=== PATIENT | female | born 1950 | race Caucasian/White ===

== ENCOUNTER 2016-03-29 07:57 | Outpatient (CLI) | payer MEDICARE ==
[~2016-03-29 07:57] MED LIST: DEXAMETHASONE SOD PHOSPHATE 10 MG in NORMAL SALINE 50 ML IV PRN; DIPHENHYDRAMINE HCL 50 MG/ML VIAL IV PRN; IRON SUCROSE COMPLEX 100 MG in NORMAL SALINE 100 ML IV PRN; NORMAL SALINE 250 ML IV PRN
[2016-03-29 09:48] VITALS: BP 102/40
[2016-04-05] MEDS ORDERED: NORMAL SALINE 250 ML IV PRN (08:00)
== END 2016-03-29 09:54 | disposition home or self-care (01) ==
LOC: II 07:57 → 5TH 07:59 → II 09:54
PROVIDERS: ATTEND Internal Medicine
PROC: 3E033GC Introduction of Other Therapeutic Substance into Peripheral Vein, Percutaneous Approach (ICD-10-PCS; principal; 2016-03-29)
PROC: 3E0333Z Introduction of Anti-inflammatory into Peripheral Vein, Percutaneous Approach (ICD-10-PCS; 2016-03-29)
DX: N18.3 Chronic kidney disease, stage 3 (moderate) (principal); D63.1 Anemia in chronic kidney disease
CPT/HCPCS: 96374; 96375; J1756; J1200; 96367; J1100

== ENCOUNTER 2016-04-05 07:54 | Outpatient (CLI) | payer MEDICARE ==
[2016-04-05] MEDS ORDERED: NORMAL SALINE 250 ML IV PRN (08:00)
[2016-04-05] MEDS ORDERED: DIPHENHYDRAMINE HCL 50 MG/ML VIAL IV PRN (08:00)
[2016-04-05] MEDS ORDERED: DEXAMETHASONE SOD PHOSPHATE 10 MG in NORMAL SALINE 50 ML IV PRN (08:00)
[2016-04-05] MEDS ORDERED: IRON SUCROSE COMPLEX 100 MG in NORMAL SALINE 100 ML IV PRN (08:00)
[2016-04-05 08:39] VITALS: BP 115/55
== END 2016-04-05 09:17 | disposition home or self-care (01) ==
LOC: II 07:54 → 5TH 07:55 → II 09:17
PROVIDERS: ATTEND Specialist
PROC: 3E033GC Introduction of Other Therapeutic Substance into Peripheral Vein, Percutaneous Approach (ICD-10-PCS; principal; 2016-04-05)
DX: N18.3 Chronic kidney disease, stage 3 (moderate) (principal); D63.1 Anemia in chronic kidney disease
CPT/HCPCS: 96365; 96375; J1756; J1200; 96367; J1100

== ENCOUNTER 2016-04-12 07:52 | Outpatient (CLI) | payer MEDICARE ==
[~2016-04-12 07:52] MED LIST changes: -DEXAMETHASONE SOD PHOSPHATE 10 MG in NORMAL SALINE 50 ML IV PRN
[2016-04-12 08:52] VITALS: BP 115/54
[2016-04-17] MEDS ORDERED: IRON SUCROSE COMPLEX 100 MG in NORMAL SALINE 100 ML IV PRN (08:39)
== END 2016-04-12 09:15 | disposition home or self-care (01) ==
LOC: II 07:52 → 5TH 07:55 → II 09:15
PROVIDERS: ATTEND Specialist
PROC: 3E033GC Introduction of Other Therapeutic Substance into Peripheral Vein, Percutaneous Approach (ICD-10-PCS; principal; 2016-04-12)
DX: N18.3 Chronic kidney disease, stage 3 (moderate) (principal); D63.1 Anemia in chronic kidney disease
CPT/HCPCS: 96365; 96375; J1756; J1200; 96367

== ENCOUNTER 2016-08-22 11:17 | Inpatient (IN) | payer MEDICARE ==
[2016-08-22] MEDS ORDERED: NORMAL SALINE 250 ML IV PRN ×2 (11:42)
--- NOTE | 2016-08-22 11:49 | ER Document Report ---
ED Medical Screen (RME) - General Chief Complaint: Abnormal Lab Results Stated Complaint: ABNORMAL LABS Time Seen by Provider: 08/22/16 11:40 Mode of Arrival: Wheelchair Information source: Patient Notes: This is a 65-year-old female with multiple medical problems who was scheduled to have a port placed today but on her blood work was noted to be hyperkalemic and therefore was sent to the emergency department for further evaluation. She sees Dr. Whitmore for chronic anemia. She states that she has been symptomatic with her anemia for the past few days. She had an episode of chest pain yesterday evening which she had to take nitro for. She does not currently have chest pain but she does feel weak. She states that she usually requires transfusion every 6 week and her last transfusion was in May. I have greeted and performed a rapid initial assessment of this patient. A comprehensive ED assessment and evaluation of the patient, analysis of test results and completion of the medical decision making process will be conducted by additional ED providers. TRAVEL OUTSIDE OF THE [place] IN LAST 30 DAYS: No - Related Data Allergies/Adverse Reactions: oxycodone Allergy (Severe, Verified 02/17/16 22:17) ended up in hospital with kidney failure codeine Allergy (Verified 02/17/16 22:17) midazolam HCl [From Versed] Allergy (Verified 02/17/16 22:17) ON VENT X 19 DAYS hydrocodone [Hydrocodone] Adverse Reaction (Mild, Verified 02/17/16 22:17) GI upset Past Medical History - Past Medical History Cardiac Medical History: Reports: Hx Congestive Heart Failure, Hx Heart Attack - DECEMBER 1995, Hx Hypercholesterolemia, Hx Hypertension, Hx Heart Murmur Denies: Hx Coronary Artery Disease Pulmonary Medical History: Reports: Hx Asthma, Hx Bronchitis, Hx COPD - OXYGEN DEPENDENT, Hx Pneumonia Neurological Medical History: Denies: Hx Cerebrovascular Accident, Hx Seizures Endocrine Medical History: Reports: Hx Diabetes Mellitus Type 2, Hx Hypothyroidism Renal/ Medical History: Reports: Hx Renal Insufficiency. Denies: Hx Peritoneal Dialysis GI Medical History: Reports: Hx Cirrhosis, Hx Gastroesophageal Reflux Disease. Denies: Hx Hepatitis, Hx Hiatal Hernia, Hx Ulcer Musculoskeltal Medical History: Reports Hx Arthritis - GENERALIZED Psychiatric Medical History: Reports: Hx Depression Infectious Medical History: Denies: Hx Hepatitis Past Surgical History: Reports: Hx Cardiac Catheterization, Hx Section - x3, Hx Cholecystectomy, Hx Coronary Stent - x12. Denies: Hx Mastectomy, Hx Open Heart Surgery, Hx Pacemaker - Immunizations Hx Diphtheria, Pertussis, Tetanus Vaccination: Yes Physical Exam - Vital signs Vitals: Temp Pulse Resp BP Pulse Ox 98.2 F 78 28 H 146/55 H 92 08/22/16 11:31 08/22/16 11:31 08/22/16 11:31 08/22/16 11:31 08/22/16 11:31 - General In distress: None Notes: Patient is alert and conversant but very pale and feels weak. - Respiratory Respiratory status: No respiratory distress Breath sounds: Other - bibasilar crackles - Cardiovascular Rhythm: Regular Heart sounds: S1 appreciated, S2 appreciated Murmur: Yes - 4/6 systolic across precordium Course - Vital Signs Vital signs: Temp Pulse Resp BP Pulse Ox 98.2 F 78 28 H 146/55 H 92 08/22/16 11:31 08/22/16 11:31 08/22/16 11:31 08/22/16 11:31 08/22/16 11:31
[2016-08-22 12:58] LABS: HEMATOCRIT 25.1 % (36.0-47.0); HGB HCT DIFFERENCE -1.7; MEAN CORPUSCULAR HGB CONC 30.9 g/dL (32.0-36.0); MEAN CORPUSCULAR VOLUME 91 fl (80-97); RED BLOOD COUNT 2.77 10^6/uL (3.72-5.28); RED CELL DISTRIBUTION WIDTH 20.1 % (11.5-14.0)
[2016-08-22 13:12] LABS: CREATINE KINASE MB 0.26 ng/mL (<4.55)
[2016-08-22 13:13] LABS: HEMOGLOBIN 7.8 g/dL (12.0-15.5)
[2016-08-22 13:16] LABS: TROPONIN I < 0.012 ng/mL
[2016-08-22 13:22] LABS: ANION GAP 10 (5-19); BLOOD UREA NITROGEN 69 mg/dL (7-20); CALCIUM 9.1 mg/dL (8.4-10.2); CARBON DIOXIDE 29 mmol/L (22-30); CHLORIDE 106 mmol/L (98-107); CREATININE RESULT 1.26 mg/dL (0.52-1.25); GLUCOSE 98 mg/dL (75-110); SODIUM 145.4 mmol/L (137-145)
[2016-08-22 13:24] LABS: POTASSIUM 6.2 mmol/L (3.6-5.0)
[2016-08-22] MEDS ORDERED: DEXTROSE 50%-WATER 25 GM/50 ML DISP.SYRIN IV ONE (14:50)
[2016-08-22] MEDS ORDERED: INSULIN REG, HUMAN 100 UNIT/ML 3 ML VIAL (PYX) IV ONE (14:50)
[2016-08-22] MEDS ORDERED: SODIUM POLYSTYRENE SULFONATE 15 GM/60 ML PO ONE (14:57)
--- NOTE | 2016-08-22 15:01 | ER Document Report ---
ED General - General Chief Complaint: Abnormal Lab Results Stated Complaint: ABNORMAL LABS Time Seen by Provider: 08/22/16 11:40 Mode of Arrival: Wheelchair TRAVEL OUTSIDE OF THE [place] IN LAST 30 DAYS: No - HPI Patient complains to provider of: Abnormal laboratory findings Notes: Patient is coming in for evaluation of abnormal laboratory findings. Patient has a history of chronic anemia therefore received blood transfusions monthly. Patient was at a local vascular surgeons office and outpatient laboratory studies showed a low hemoglobin and elevated potassium therefore patient was referred to the ER for further evaluation. Patient otherwise upon evaluation states she feels bad however was unable to clarify if her bad feeling as any acute change. Patient does look pale however looks to be in no obvious distress. - Related Data Allergies/Adverse Reactions: oxycodone Allergy (Severe, Verified 02/17/16 22:17) ended up in hospital with kidney failure codeine Allergy (Verified 02/17/16 22:17) midazolam HCl [From Versed] Allergy (Verified 02/17/16 22:17) ON VENT X 19 DAYS hydrocodone [Hydrocodone] Adverse Reaction (Mild, Verified 02/17/16 22:17) GI upset Home Medications: Current Home Medications Acetaminophen [Tylenol 325 mg Tablet] 650 mg PO QID 08/22/16 [History] Alprazolam [Xanax 0.25 mg Tablet] 0.25 mg PO BID 08/22/16 [History] Amlodipine Besylate [Norvasc 10 mg Tablet] 10 mg PO DAILY 08/22/16 [History] Benazepril HCl [Lotensin 10 mg Tablet] 10 mg PO DAILY 08/22/16 [History] Bimatoprost [Lumigan 0.01% Oph Soln 2.5 ml/Bottle] 1 drop OU DAILY 08/22/16 [ History] Carvedilol [Coreg 6.25 mg Tablet] 6.25 mg PO BID 08/22/16 [History] Citalopram Hydrobromide [Celexa] 20 mg PO DAILY 08/22/16 [History] Furosemide [Lasix] 40 mg PO DAILY 08/22/16 [History] Ipratropium/Albuterol Sulfate [Combivent Respimat 4 gm Mdi] 1 puff IH QID [History] Isosorbide Dinitrate [Isordil Titradose 20 mg Tablet] 20 mg PO BID 08/22/16 [ History] Levothyroxine Sodium [Synthroid 0.1 mg Tablet] 0.1 mg PO DAILY 08/22/16 [History ] Mirtazapine [Remeron 15 mg Tablet] 15 mg PO BID 08/22/16 [History] Nitroglycerin [Nitrostat] 0.4 mg PO Q5M 08/22/16 [History] Zolpidem Tartrate [Ambien] 10 mg PO QHS 08/22/16 [History] Past Medical History - General Information source: Patient - Social History Smoking Status: Former Smoker Frequency of alcohol use: None Drug Abuse: None Family History: CAD, COPD Patient has suicidal ideation: No Patient has homicidal ideation: No - Past Medical History Cardiac Medical History: Reports: Hx Congestive Heart Failure, Hx Heart Attack - DECEMBER 1995, Hx Hypercholesterolemia, Hx Hypertension, Hx Heart Murmur Denies: Hx Coronary Artery Disease Pulmonary Medical History: Reports: Hx Asthma, Hx Bronchitis, Hx COPD - OXYGEN DEPENDENT, Hx Pneumonia Neurological Medical History: Denies: Hx Cerebrovascular Accident, Hx Seizures Endocrine Medical History: Reports: Hx Diabetes Mellitus Type 2, Hx Hypothyroidism Renal/ Medical History: Reports: Hx Renal Insufficiency. Denies: Hx Peritoneal Dialysis GI Medical History: Reports: Hx Cirrhosis, Hx Gastroesophageal Reflux Disease. Denies: Hx Hepatitis, Hx Hiatal Hernia, Hx Ulcer Musculoskeltal Medical History: Reports Hx Arthritis - GENERALIZED Psychiatric Medical History: Reports: Hx Depression Infectious Medical History: Denies: Hx Hepatitis Past Surgical History: Reports: Hx Cardiac Catheterization, Hx Section - x3, Hx Cholecystectomy, Hx Coronary Stent - x12. Denies: Hx Mastectomy, Hx Open Heart Surgery, Hx Pacemaker - Immunizations Hx Diphtheria, Pertussis, Tetanus Vaccination: Yes Hx Pneumococcal Vaccination: 12/24/14 Review of Systems - Review of Systems Constitutional: Other - Abnormal laboratory findings EENT: No symptoms reported Cardiovascular: No symptoms reported Respiratory: No symptoms reported Gastrointestinal: No symptoms reported Genitourinary: No symptoms reported Female Genitourinary: No symptoms reported Musculoskeletal: No symptoms reported Skin: No symptoms reported Hematologic/Lymphatic: No symptoms reported Neurological/Psychological: No symptoms reported Physical Exam - Vital signs Vitals: Temp Pulse Resp BP Pulse Ox 98.2 F 78 28 H 146/55 H 92 08/22/16 11:30 08/22/16 11:30 08/22/16 11:30 08/22/16 11:30 08/22/16 11:30 Interpretation: Normal - General General appearance: Appears well, Alert - HEENT Head: Normocephalic, Atraumatic Eyes: Normal Pupils: PERRL - Respiratory Respiratory status: No respiratory distress Chest status: Nontender Breath sounds: Normal Chest palpation: Normal - Cardiovascular Rhythm: Regular Heart sounds: Normal auscultation Murmur: No - Abdominal Inspection: Normal Distension: No distension Bowel sounds: Normal Tenderness: Nontender Organomegaly: No organomegaly - Back Back: Normal, Nontender - Extremities General upper extremity: Normal inspection, Nontender, Normal color, Normal ROM , Normal temperature General lower extremity: Normal inspection, Nontender, Normal color, Normal ROM , Normal temperature, Normal weight bearing. No: Su's sign - Neurological Neuro grossly intact: Yes Cognition: Normal Orientation: AAOx4 [place] Coma Scale Eye Opening: Spontaneous [place] Coma Scale Verbal: Oriented [place] Coma Scale Motor: Obeys Commands [place] Coma Scale Total: 15 Speech: Normal Motor strength normal: LUE, RUE, LLE, RLE Sensory: Normal - Psychological Associated symptoms: Normal affect, Normal mood - Skin Skin Temperature: Warm Skin Moisture: Dry Skin Color: Pale Course - Re-evaluation Re-evalutation: 08/22/16 18:59 Patient's lab work shows anemia hyperkalemia. Patient is refusing to have any IV insulin are dextrose that she states she has had before and almost due to hypoglycemia. Discussed with hospitalist agrees with Kayexalate. I did order Kayexalate for the hospitalist. Patient will be admitted for blood transfusions and continued monitoring of her hyperkalemic state - Vital Signs Vital signs: Temp Pulse Resp BP Pulse Ox 98.2 F 82 22 H 143/72 H 98 08/22/16 11:31 08/22/16 16:40 08/22/16 16:40 08/22/16 16:39 08/22/16 16:40 - Laboratory Result Diagrams: 08/22/16 12:17 08/22/16 12:17 Laboratory results interpreted by me: 08/22/16 08/22/16 08/22/16 12:17 12:17 12:17 WBC RBC Hgb Hct MCHC RDW Plt Count Sodium 145.4 H Potassium 6.2 H* BUN 69 H Creatinine 1.26 H Est GFR ( Amer) 51 L Est GFR (Non-Af Amer) 42 L Creatine Kinase < 20 L Crossmatch See Detail 08/22/16 12:17 WBC 3.0 L RBC 2.77 L Hgb 7.8 L Hct 25.1 L MCHC 30.9 L RDW 20.1 H Plt Count 77 L Sodium Potassium BUN Creatinine Est GFR ( Amer) Est GFR (Non-Af Amer) Creatine Kinase Crossmatch Critical Care Note - Critical Care Note Total time excluding time spent on procedures (mins): 35 Comments: Multiple evaluations for hyperkalemia and anemia Discharge - Discharge Clinical Impression: Acute renal insufficiency, Hyperkalemia, Anemia requiring blood transfusion Condition: Good Disposition: ADMITTED INPATIENT Admitting Provider: Thea Mayen Unit Admitted: Telemetry
[2016-08-22] MEDS ORDERED: DIPHENHYDRAMINE HCL 50 MG/ML VIAL IV ONE ×2 (15:46→23:45)
[2016-08-22] MEDS ORDERED: ACETAMINOPHEN 325 MG TABLET PO PRN (17:02)
[2016-08-22] MEDS ORDERED: ONDANSETRON HCL INJ/PF 4 MG/2 ML SDV IV PRN (17:08)
--- NOTE | 2016-08-22 17:35 | PDOC H&P ---
History of Present Illness Admission Date/PCP: 08/22/16 15:33 JORDYN STEEN DO Patient complains of: Easy fatigability History of Present Illness: ROSALVA DOLL is a 65 year old female, history of anemia iron deficiency due to chronic blood loss, hypertension on GLORIA inhibitor presents to the hospital because of elevated potassium. Patient has been having pallor for several days , easy fatigability and dyspnea on exertion. At times the patient will have chest pain all the symptoms however would be relieved by rest other than the pallor. Patient know that she is anemic and therefore went to see her facility specialist, she was sent to see vascular surgery for Port-A-Cath placement. While in the clinic today and chemistry was obtained noted elevated potassium therefore the patient was sent to the emergency room for evaluation where her potassium was 6.2. Hemoglobin found to be 7.8 and 2 units of packed RBCs was ordered and initiated. Patient has been referred for admission. Past Medical History Cardiac Medical History: Reports: Congestive Heart Failure, Myocardial Infarction - DECEMBER 1995, Hyperlipidema, Hypertension, Heart Murmur Denies: Coronary Artery Disease Pulmonary Medical History: Reports: Asthma, Bronchitis, Chronic Obstructive Pulmonary Disease (COPD) - OXYGEN DEPENDENT, Pneumonia Neurological Medical History: Denies: Seizures Endocrine Medical History: Reports: Diabetes Mellitus Type 2, Hypothyroidism GI Medical History: Reports: Cirrhosis, Gastroesophageal Reflux Disease Denies: Hepatitis, Hiatal Hernia Musculoskeltal Medical History: Reports: Arthritis - GENERALIZED Psychiatric Medical History: Reports: Depression Hematology: Reports: Anemia Denies: Sickle Cell Disease Past Surgical History Past Surgical History: Reports: Cardiac Catheterization, Section - x3, Cholecystectomy, Coronary Stent - x12 Denies: Amputation, Mastectomy, Pacemaker Social History Information Source: Patient Smoking Status: Former Smoker Frequency of Alcohol Use: None Hx Recreational Drug Use: No Drugs: None Hx Prescription Drug Abuse: No Family History Family History: CAD, COPD Parental Family History Reviewed: Yes Children Family History Reviewed: Yes Sibling(s) Family History Reviewed.: Yes Medication/Allergy Home Medications: Acetaminophen [Tylenol 325 mg Tablet] 650 mg PO QID 08/22/16 Alprazolam [Xanax 0.25 mg Tablet] 0.25 mg PO BID 08/22/16 Amlodipine Besylate [Norvasc 10 mg Tablet] 10 mg PO DAILY 08/22/16 Benazepril HCl [Lotensin 10 mg Tablet] 10 mg PO DAILY 08/22/16 Bimatoprost [Lumigan 0.01% Oph Soln 2.5 ml/Bottle] 1 drop OU DAILY 08/22/16 Carvedilol [Coreg 6.25 mg Tablet] 6.25 mg PO BID 08/22/16 Citalopram Hydrobromide [Celexa] 20 mg PO DAILY 08/22/16 Furosemide [Lasix] 40 mg PO DAILY 08/22/16 Ipratropium/Albuterol Sulfate [Combivent Respimat 4 gm Mdi] 1 puff IH QID Isosorbide Dinitrate [Isordil Titradose 20 mg Tablet] 20 mg PO BID 08/22/16 Levothyroxine Sodium [Synthroid 0.1 mg Tablet] 0.1 mg PO DAILY 08/22/16 Mirtazapine [Remeron 15 mg Tablet] 15 mg PO BID 08/22/16 Nitroglycerin [Nitrostat] 0.4 mg PO Q5M 08/22/16 Zolpidem Tartrate [Ambien] 10 mg PO QHS 08/22/16 Allergies/Adverse Reactions: oxycodone Allergy (Severe, Verified 02/17/16 22:17) ended up in hospital with kidney failure codeine Allergy (Verified 02/17/16 22:17) midazolam HCl [From Versed] Allergy (Verified 02/17/16 22:17) ON VENT X 19 DAYS hydrocodone [Hydrocodone] Adverse Reaction (Mild, Verified 02/17/16 22:17) GI upset Review of Systems Constitutional: PRESENT: weakness - Generalized. ABSENT: chills, fever(s), headache(s), night sweats, weight gain, weight loss Eyes: ABSENT: visual disturbances Ears: ABSENT: hearing changes Nose, Mouth, and Throat: ABSENT: mouth pain, sore throat Cardiovascular: PRESENT: chest pain - On exertion, dyspnea on exertion. ABSENT : edema, orthropnea, palpitations Respiratory: ABSENT: cough, hemoptysis, sputum Gastrointestinal: PRESENT: melena - Patient has black stools but takes supplemental iron. ABSENT: abdominal pain, constipation, diarrhea, hematemesis , hematochezia, nausea, vomiting Genitourinary: ABSENT: dysuria, hematuria Musculoskeletal: ABSENT: deformity, joint swelling Integumentary: ABSENT: pruritus, rash, wounds Neurological: ABSENT: abnormal gait, abnormal speech, confusion, dizziness, focal weakness, syncope Psychiatric: ABSENT: anxiety, depression, homidical ideation, suicidal ideation Endocrine: ABSENT: cold intolerance, heat intolerance, polydipsia, polyuria Hematologic/Lymphatic: ABSENT: easy bleeding, easy bruising Physical Exam Vital Signs: Temp Pulse Resp BP Pulse Ox 98.2 F 82 22 H 143/72 H 98 08/22/16 11:31 08/22/16 16:40 08/22/16 16:40 08/22/16 16:39 08/22/16 16:40 Intake & Output 08/21/16 08/22/16 08/23/16 06:59 06:59 06:59 Intake Total 0 Balance 0 General appearance: PRESENT: no acute distress, cooperative, obese Head exam: PRESENT: atraumatic, normocephalic Eye exam: PRESENT: conjunctiva pale, EOMI, PERRLA. ABSENT: scleral icterus Ear exam: PRESENT: normal external ear exam Mouth exam: PRESENT: moist, neck supple, tongue midline Neck exam: ABSENT: carotid bruit, JVD, lymphadenopathy, thyromegaly Respiratory exam: PRESENT: clear to auscultation scott. ABSENT: rales, rhonchi, wheezes Cardiovascular exam: PRESENT: RRR. ABSENT: diastolic murmur, rubs, systolic murmur Pulses: PRESENT: normal dorsalis pedis pul Vascular exam: PRESENT: normal capillary refill GI/Abdominal exam: PRESENT: normal bowel sounds, soft. ABSENT: distended, guarding, mass, organolmegaly, rebound, tenderness Rectal exam: PRESENT: deferred Extremities exam: PRESENT: full ROM. ABSENT: calf tenderness, clubbing, pedal edema Neurological exam: PRESENT: alert, awake, oriented to person, oriented to place , oriented to time, oriented to situation Psychiatric exam: PRESENT: appropriate affect, normal mood. ABSENT: homicidal ideation, suicidal ideation Skin exam: PRESENT: dry, intact, warm. ABSENT: cyanosis, rash Assessment & Plan - Diagnosis (1) Iron deficiency anemia Qualifiers: Iron deficiency anemia type: chronic blood loss Qualified Code(s): D50.0 - Iron deficiency anemia secondary to blood loss (chronic) Is this a current diagnosis for this admission?: Yes (2) Hyperkalemia Is this a current diagnosis for this admission?: Yes (3) Pancytopenia Is this a current diagnosis for this admission?: Yes (4) Chronic hypoxemic respiratory failure Is this a current diagnosis for this admission?: Yes (5) Hypersplenism Is this a current diagnosis for this admission?: Yes (6) COPD (chronic obstructive pulmonary disease) Qualifiers: COPD type: unspecified COPD Qualified Code(s): J44.9 - Chronic obstructive pulmonary disease, unspecified Is this a current diagnosis for this admission?: Yes (7) Cirrhosis Qualifiers: Hepatic cirrhosis type: unspecified hepatic cirrhosis Ascites presence : without ascites Qualified Code(s): K74.60 - Unspecified cirrhosis of liver Is this a current diagnosis for this admission?: Yes (8) CAD (coronary artery disease) Qualifiers: Coronary Disease-Associated Artery/Lesion type: [place] artery [place] vs. transplanted heart: [place] heart Associated angina: with stable angina Qualified Code(s): I25.118 - Atherosclerotic heart disease of [place] coronary artery with other forms of angina pectoris Is this a current diagnosis for this admission?: Yes (9) CHF (congestive heart failure) Qualifiers: Congestive heart failure type: systolic Congestive heart failure chronicity: chronic Qualified Code(s): I50.22 - Chronic systolic ( congestive) heart failure Is this a current diagnosis for this admission?: Yes (10) Essential hypertension Is this a current diagnosis for this admission?: Yes (11) Hyperlipidemia Qualifiers: Hyperlipidemia type: unspecified Qualified Code(s): E78.5 - Hyperlipidemia, unspecified (12) GERD (gastroesophageal reflux disease) Qualifiers: Esophagitis presence: without esophagitis Qualified Code(s): K21.9 - Gastro-esophageal reflux disease without esophagitis Is this a current diagnosis for this admission?: Yes (13) Hypothyroidism (acquired) Is this a current diagnosis for this admission?: Yes (14) Depression Qualifiers: Depression Type: unspecified Qualified Code(s): F32.9 - Major depressive disorder, single episode, unspecified Is this a current diagnosis for this admission?: Yes (15) Type 2 diabetes mellitus Qualifiers: Diabetes mellitus complication status: with unspecified complications Diabetes mellitus nursing home insulin use: without nursing home use Qualified Code(s): E11.8 - Type 2 diabetes mellitus with unspecified complications Is this a current diagnosis for this admission?: Yes - Time Time Spent: 30 to 50 Minutes - Inpatient Certification Based on my medical assessment, after consideration of the patient's comorbidities, presenting symptoms, or acuity I expect that the services needed warrant INPATIENT care.: Yes I certify that my determination is in accordance with my understanding of Medicare's requirements for reasonable and necessary INPATIENT services [42 CFR 412.3e].: Yes Medical Necessity: Significant Comorbidiites Make Outpatient Treatment Too Risky , Need Close Monitoring Due to Risk of Patient Decompensation, Need For IV Fluids, Need For Continuous Telemetry Monitoring, Risk of Complication if Not Cared For in Hospital Post Hospital Care: D/C [employer] Documentation - Plan Summary Plan Summary: Patient will be admitted to [facility]. We will continue transfusion and recheck hematocrit in the morning. We will consult Dr. Whitmore for further evaluation. In the meantime the patient's hyperkalemia likely secondary to GLORIA inhibitor. Patient is getting hydration, Kayexalate given in the emergency room we will recheck potassium level in the morning. THERESA hartmann and Adilene for DVT prophylaxis , continue home oxygen. Further testing depends on the initial evaluations outlined above.
[2016-08-22] MEDS: ALPRAZOLAM 0.25 MG TABLET PO SCH (18:57)
[2016-08-22] MEDS: MIRTAZAPINE 15 MG TABLET PO SCH (18:57)
[2016-08-22] MEDS: CARVEDILOL 6.25 MG TABLET PO SCH (18:58)
[2016-08-22] MEDS: DOCUSATE SODIUM 100 MG CAPSULE PO SCH (21:25)
[2016-08-22] MEDS ORDERED: ZOLPIDEM TARTRATE 5 MG TABLET PO SCH (22:00)
[2016-08-22] MEDS: ACETAMINOPHEN 325 MG TABLET PO SCH ×2 (22:15→23:39)
[2016-08-22] MEDS: IPRATROPIUM/ALBUTEROL 120 PUFF/4 GM MDI IH SCH (22:15)
[2016-08-22] MEDS: ISOSORBIDE DINITRATE 20 MG TABLET PO SCH (23:39)
--- NOTE | 2016-08-23 00:13 | EKG REPORT ---
SEVERITY:- ABNORMAL ECG - SINUS RHYTHM RIGHT BUNDLE BRANCH BLOCK LVH BY VOLTAGE : Confirmed by: Noemi Hermosillo 23-Aug-2016 00:12:40
[2016-08-23] MEDS: IPRATROPIUM/ALBUTEROL 120 PUFF/4 GM MDI IH SCH (00:16)
[2016-08-23 05:07] LABS: ANION GAP 11 (5-19); BLOOD UREA NITROGEN 50 mg/dL (7-20); CALCIUM 8.7 mg/dL (8.4-10.2); CARBON DIOXIDE 28 mmol/L (22-30); CHLORIDE 107 mmol/L (98-107); CREATININE RESULT 1.09 mg/dL (0.52-1.25); GLUCOSE 87 mg/dL (75-110); POTASSIUM 4.4 mmol/L (3.6-5.0); SODIUM 145.5 mmol/L (137-145)
[2016-08-23] MEDS ORDERED: ALBUTEROL SULFATE 0.083% NEB 2.5 MG/3 ML AMPUL NEB PRN (05:19)
[2016-08-23] MEDS ORDERED: LANSOPRAZOLE 30 MG TAB.RAP.DR PO SCH (06:00)
[2016-08-23 06:30] LABS: HEMATOCRIT 30.3 % (36.0-47.0); HEMOGLOBIN 9.6 g/dL (12.0-15.5); HGB HCT DIFFERENCE -1.5; MEAN CORPUSCULAR HEMOGLOBIN 27.3 pg (27.0-33.4); MEAN CORPUSCULAR HGB CONC 31.7 g/dL (32.0-36.0); RED BLOOD COUNT 3.52 10^6/uL (3.72-5.28); RED CELL DISTRIBUTION WIDTH 21.4 % (11.5-14.0); WHITE BLOOD COUNT 2.8 10^3/uL (4.0-10.5)
[2016-08-23 06:55] LABS: MEAN CORPUSCULAR VOLUME 86 fl (80-97)
[2016-08-23] MEDS: ALPRAZOLAM 0.25 MG TABLET PO SCH (09:46)
[2016-08-23] MEDS: CARVEDILOL 6.25 MG TABLET PO SCH (09:47)
[2016-08-23] MEDS: ACETAMINOPHEN 325 MG TABLET PO SCH (09:47)
[2016-08-23] MEDS: ISOSORBIDE DINITRATE 20 MG TABLET PO SCH (09:50)
[2016-08-23] MEDS: MIRTAZAPINE 15 MG TABLET PO SCH (09:51)
[2016-08-23] MEDS: DOCUSATE SODIUM 100 MG CAPSULE PO SCH (09:52)
[2016-08-23] MEDS ORDERED: CITALOPRAM HYDROBROMIDE 20 MG TABLET PO SCH (10:00)
[2016-08-23] MEDS ORDERED: FUROSEMIDE 40 MG TABLET PO SCH (10:00)
[2016-08-23] MEDS ORDERED: AMLODIPINE BESYLATE 10 MG TABLET PO SCH (10:00)
[2016-08-23] MEDS ORDERED: LEVOTHYROXINE SODIUM 0.1 MG TABLET PO SCH (10:00)
[2016-08-23] MEDS ORDERED: BIMATOPROST 0.01% OPH SOLN 2.5 ML/BOTTLE OU SCH (10:00)
--- NOTE | 2016-08-23 11:35 | PDOC DISCHARGE SUMMARY ---
General - Admit/Disc Date/PCP Admission Date/Primary Care Provider: 08/22/16 17:02 JORDYN STEEN, Discharge Date: 08/23/16 - Discharge Diagnosis (1) Iron deficiency anemia Is this a current diagnosis for this admission?: Yes (2) Hyperkalemia Is this a current diagnosis for this admission?: Yes (3) Pancytopenia Is this a current diagnosis for this admission?: Yes (4) Chronic hypoxemic respiratory failure Is this a current diagnosis for this admission?: Yes (5) Hypersplenism Is this a current diagnosis for this admission?: Yes (6) COPD (chronic obstructive pulmonary disease) Is this a current diagnosis for this admission?: Yes (7) Cirrhosis Is this a current diagnosis for this admission?: Yes (8) CAD (coronary artery disease) Is this a current diagnosis for this admission?: Yes (9) CHF (congestive heart failure) Is this a current diagnosis for this admission?: Yes (10) Essential hypertension Is this a current diagnosis for this admission?: Yes (12) GERD (gastroesophageal reflux disease) Is this a current diagnosis for this admission?: Yes (13) Hypothyroidism (acquired) Is this a current diagnosis for this admission?: Yes (14) Depression Is this a current diagnosis for this admission?: Yes (15) Type 2 diabetes mellitus Is this a current diagnosis for this admission?: Yes - Additional Information Resuscitation Status: Full Code Discharge Diet: Cardiac - Low-fat low-salt, Diabetic - No concentrated sweets Discharge Activity: Activity As Tolerated, Balance Activity w/Rest Home Medications: Acetaminophen [Tylenol 325 mg Tablet] 650 mg PO QID 08/22/16 Alprazolam [Xanax 0.25 mg Tablet] 0.25 mg PO BID 08/22/16 Amlodipine Besylate [Norvasc 10 mg Tablet] 10 mg PO DAILY 08/22/16 Bimatoprost [Lumigan 0.01% Oph Soln 2.5 ml/Bottle] 1 drop OU DAILY 08/22/16 Carvedilol [Coreg 6.25 mg Tablet] 6.25 mg PO BID 08/22/16 Citalopram Hydrobromide [Celexa] 20 mg PO DAILY 08/22/16 Furosemide [Lasix] 40 mg PO DAILY 08/22/16 Ipratropium/Albuterol Sulfate [Combivent Respimat 4 gm Mdi] 1 puff IH QID Isosorbide Dinitrate [Isordil Titradose 20 mg Tablet] 20 mg PO BID 08/22/16 Levothyroxine Sodium [Synthroid 0.1 mg Tablet] 0.1 mg PO DAILY 08/22/16 Mirtazapine [Remeron 15 mg Tablet] 15 mg PO BID 08/22/16 Nitroglycerin [Nitrostat] 0.4 mg PO Q5M 08/22/16 Zolpidem Tartrate [Ambien] 10 mg PO QHS 08/22/16 Additional Information: Follow-up with primary care physician or Dr. Whitmore for CBC and potassium level. Stop benazepril. History of Present Illness Patient complains of: Hyperkalemia History of Present Illness: ROSALVA DOLL is a 65 year old female, history of anemia iron deficiency due to chronic blood loss, hypertension on GLORIA inhibitor presents to the hospital because of elevated potassium. Patient has been having pallor for several days , easy fatigability and dyspnea on exertion. At times the patient will have chest pain all the symptoms however would be relieved by rest other than the pallor. 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 While in the clinic today and chemistry was obtained noted elevated potassium therefore the patient was sent to the emergency room for evaluation where her potassium was 6.2. Hemoglobin found to be 7.8 and 2 units of packed RBCs was ordered and initiated. Patient has been referred for admission. Hospital Course Hospital Course: The patient was admitted to telemetry. 2 units of packed RBCs were transfused. Kayexalate was given for hyperkalemia. Patient was given IV fluids as well. Subsequent hemoglobin hematocrit improved to 90.6 and 30.3 respectively. Patient's potassium normalized. Her medications was reviewed and patient apparently on GLORIA inhibitor and therefore she was advised to discontinue the medication. She does not want to stay in the hospital any longer. She was seen briefly by Dr. Whitmore of which the patient will continue to follow with her on an outpatient basis and monitor her hematocrit. She was likewise advised to follow-up with Dr. Sapp to reschedule her Port-A-Cath. The rest of the hospital stays unremarkable. Physical Exam Vital Signs: Temp Pulse Resp BP Pulse Ox 98.4 F 86 16 142/60 H 92 08/23/16 07:02 08/23/16 07:02 08/23/16 07:02 08/23/16 07:02 08/23/16 07:02 Intake & Output 08/22/16 08/23/16 08/24/16 06:59 06:59 06:59 Intake Total 2530 Balance 2530 Weight 74.8 kg General appearance: PRESENT: no acute distress, cooperative Head exam: PRESENT: normocephalic Eye exam: PRESENT: EOMI Mouth exam: PRESENT: moist, neck supple Neck exam: ABSENT: JVD Respiratory exam: PRESENT: clear to auscultation scott. ABSENT: rhonchi, wheezes Cardiovascular exam: PRESENT: RRR. ABSENT: gallop GI/Abdominal exam: PRESENT: soft. ABSENT: distended, tenderness Extremities exam: ABSENT: pedal edema Neurological exam: PRESENT: alert, awake, oriented to person, oriented to place , oriented to time, oriented to situation Skin exam: PRESENT: dry, warm. ABSENT: cyanosis Results Laboratory Results: 08/23/16 06:02 08/23/16 03:54 08/22/16 08/23/16 08/23/16 20:52 03:54 03:54 WBC Cancelled RBC Cancelled Hgb Cancelled Hct Cancelled MCV Cancelled MCH Cancelled MCHC Cancelled RDW Cancelled Plt Count Cancelled Sodium 145.5 H Potassium 5.3 H 4.4 Chloride 107 Carbon Dioxide 28 Anion Gap 11 BUN 50 H Creatinine 1.09 Est GFR ( Amer) > 60 Est GFR (Non-Af Amer) 50 L Glucose 87 Calcium 8.7 08/23/16 06:02 WBC 2.8 L RBC 3.52 L Hgb 9.6 L Hct 30.3 L MCV 86 D MCH 27.3 MCHC 31.7 L RDW 21.4 H Plt Count 63 L Sodium Potassium Chloride Carbon Dioxide Anion Gap BUN Creatinine Est GFR ( Amer) Est GFR (Non-Af Amer) Glucose Calcium Qualifiers PATEINT BEING DISCHARGED WITH ANY OF THE FOLLOWING DIAGNOSIS?: No Plan Discharge Plan: Follow-up with primary care physician in 1 week. Follow-up with hematology Dr. Whitmore and 1-2 weeks. Time Spent: Less than 30 Minutes
[2016-08-23 11:59] VITALS: BP 138/62
--- NOTE | 2016-08-25 00:51 | PDOC CONSULTATION ---
Consultation Consult Date: 08/23/16 Consult reason:: Anemia History of Present Illness Admission Date/PCP: 08/22/16 17:02 JORDYN STEEN DO History of Present Illness: ROSALVA DOLL is a 65 year old female, history of iron deficiency due to chronic blood loss,cirrhosis, hypertension on GLORIA inhibitor presents to the hospital because of elevated potassium. Patient has been having pallor for several days, easy fatigability and dyspnea on exertion. At times the patient will have chest pain all the symptoms however would be relieved by rest other than the pallor. 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 While in the clinic today and chemistry was obtained noted elevated potassium therefore the patient was sent to the emergency room for evaluation where her potassium was 6.2. Hemoglobin found to be 7.8 and 2 units of packed RBCs was ordered and initiated. Patient has been referred for admission. Past Medical History Cardiac Medical History: Reports: Congestive Heart Failure, Myocardial Infarction - DECEMBER 1995, Hyperlipidema, Hypertension, Heart Murmur Denies: Coronary Artery Disease Pulmonary Medical History: Reports: Asthma, Bronchitis, Chronic Obstructive Pulmonary Disease (COPD) - OXYGEN DEPENDENT, Pneumonia Neurological Medical History: Denies: Seizures Endocrine Medical History: Reports: Diabetes Mellitus Type 2, Hypothyroidism GI Medical History: Reports: Cirrhosis, Gastroesophageal Reflux Disease Denies: Hepatitis, Hiatal Hernia Musculoskeltal Medical History: Reports: Arthritis - GENERALIZED Psychiatric Medical History: Reports: Depression - xanax, celaxa Hematology: Reports: Anemia Denies: Sickle Cell Disease Past Surgical History Past Surgical History: Reports: Cardiac Catheterization, Section - x3, Cholecystectomy, Coronary Stent - x12 Denies: Amputation, Mastectomy, Pacemaker Social History Smoking Status: Former Smoker Frequency of Alcohol Use: None Hx Recreational Drug Use: No Drugs: None Hx Prescription Drug Abuse: No - Advance Directive Resuscitation Status: Full Code Family History Family History: CAD, COPD Parental Family History Reviewed: Yes Children Family History Reviewed: Yes Sibling(s) Family History Reviewed.: Yes Medication/Allergy Home Medications: Acetaminophen [Tylenol 325 mg Tablet] 650 mg PO QID 08/22/16 Alprazolam [Xanax 0.25 mg Tablet] 0.25 mg PO BID 08/22/16 Amlodipine Besylate [Norvasc 10 mg Tablet] 10 mg PO DAILY 08/22/16 Bimatoprost [Lumigan 0.01% Oph Soln 2.5 ml/Bottle] 1 drop OU DAILY 08/22/16 Carvedilol [Coreg 6.25 mg Tablet] 6.25 mg PO BID 08/22/16 Citalopram Hydrobromide [Celexa] 20 mg PO DAILY 08/22/16 Furosemide [Lasix] 40 mg PO DAILY 08/22/16 Ipratropium/Albuterol Sulfate [Combivent Respimat 4 gm Mdi] 1 puff IH QID Isosorbide Dinitrate [Isordil Titradose 20 mg Tablet] 20 mg PO BID 08/22/16 Levothyroxine Sodium [Synthroid 0.1 mg Tablet] 0.1 mg PO DAILY 08/22/16 Mirtazapine [Remeron 15 mg Tablet] 15 mg PO BID 08/22/16 Nitroglycerin [Nitrostat] 0.4 mg PO Q5M 08/22/16 Zolpidem Tartrate [Ambien] 10 mg PO QHS 08/22/16 Allergies/Adverse Reactions: oxycodone Allergy (Severe, Verified 02/17/16 22:17) ended up in hospital with kidney failure codeine Allergy (Verified 02/17/16 22:17) midazolam HCl [From Versed] Allergy (Verified 02/17/16 22:17) ON VENT X 19 DAYS hydrocodone [Hydrocodone] Adverse Reaction (Mild, Verified 02/17/16 22:17) GI upset Review of Systems Constitutional: PRESENT: weakness Physical Exam Vital Signs: Temp Pulse Resp BP Pulse Ox 98.6 F 80 18 138/62 H 98 08/23/16 11:56 08/23/16 11:56 08/23/16 11:56 08/23/16 11:56 08/23/16 11:56 Intake & Output 08/23/16 08/24/16 08/25/16 06:59 06:59 06:59 Intake Total 2530 Balance 2530 Weight 74.8 kg General appearance: PRESENT: no acute distress, other - Pale Head exam: PRESENT: normocephalic Eye exam: PRESENT: conjunctiva pale Ear exam: PRESENT: normal external ear exam Mouth exam: PRESENT: tongue midline Respiratory exam: PRESENT: prolonged expiratory phas Cardiovascular exam: PRESENT: RRR GI/Abdominal exam: PRESENT: normal bowel sounds Neurological exam: PRESENT: alert, awake, oriented to person, oriented to place , oriented to time, oriented to situation, CN II-XII grossly intact Psychiatric exam: PRESENT: appropriate affect Results Laboratory Results: 08/23/16 06:02 08/23/16 03:54 Assessment & Plan - Diagnosis (1) Chronic hypoxemic respiratory failure Is this a current diagnosis for this admission?: YesPlan: Continue O2 and pulmonary toilet (2) Hypersplenism Is this a current diagnosis for this admission?: YesPlan: secondary to cirrhosis and the cause of her cytopenias (3) Type 2 diabetes mellitus Qualifiers: Diabetes mellitus complication status: with unspecified complications Diabetes mellitus local intermodal truck driver insulin use: without mcfp use Qualified Code(s): E11.8 - Type 2 diabetes mellitus with unspecified complications; Z79.4 - long-term (current) use of insulin Is this a current diagnosis for this admission?: YesPlan: per primary team (4) Anemia Qualifiers: Anemia type: iron deficiency Iron deficiency anemia type: unspecified iron deficiency Qualified Code(s): D50.9 - Iron deficiency anemia, unspecified Is this a current diagnosis for this admission?: YesPlan: Anemia also related to CKD therefore will use ASHLEY as an outpatient as well if iron is adequate - Time Time Spent: 50 to 70 Minutes Critical Time spent with patient: 25-34 minutes Medications reviewed and adjusted accordingly: Yes Anticipated discharge: Home
== END 2016-08-23 12:37 | disposition home or self-care (01) | DRG 812 ==
LOC: ER 11:17 → EH 15:33 → UNDOADMIN 15:33 → EH 17:02 → 3N 21:21
DX: D50.9 Iron deficiency anemia, unspecified (principal); I50.22 Chronic systolic (congestive) heart failure; D61.818 Other pancytopenia; J96.11 Chronic respiratory failure with hypoxia; E87.5 Hyperkalemia; D73.1 Hypersplenism; J44.9 Chronic obstructive pulmonary disease, unspecified; K74.60 Unspecified cirrhosis of liver; I25.10 Atherosclerotic heart disease of native coronary artery without angina pectoris; I10 Essential (primary) hypertension; K21.9 Gastro-esophageal reflux disease without esophagitis; E03.9 Hypothyroidism, unspecified; E78.5 Hyperlipidemia, unspecified; F32.9 Major depressive disorder, single episode, unspecified; E11.9 Type 2 diabetes mellitus without complications; M19.90 Unspecified osteoarthritis, unspecified site; Z79.899 Other long term (current) drug therapy; Z79.4 Long term (current) use of insulin; I25.2 Old myocardial infarction; Z90.49 Acquired absence of other specified parts of digestive tract; Z95.5 Presence of coronary angioplasty implant and graft; Z87.891 Personal history of nicotine dependence
CPT/HCPCS: 36415; 36430; 71010; 80048; 82550; 82553; 82962; 84132; 84484; 85025; 85027; 86850; 86900; 86901; 86920; 93005; 93010; 94640; 99291; J0690; J1200; J1644; J3490; J7050; P9016

== ENCOUNTER → 2016-08-22 | Day surgery (SDC) | payer MEDICARE ==
[~2016-08-22] MED LIST changes: +BACITRACIN INJ 50,000 UNIT VIAL INJ PRN; +CEFAZOLIN 1 GM/D5W RTU 1 GM/50 ML RTUPB IV PRN; +DEXTROSE 5%-1/2 NORMAL SALINE 1,000 ML IV PRN; +DIAZEPAM 5 MG TABLET ONE; -DIPHENHYDRAMINE HCL 50 MG/ML VIAL IV PRN; +HEPARIN SODIUM,PORCINE/NS/PF 0 UNIT/0 ML RTUINJ IV ONE; -IRON SUCROSE COMPLEX 100 MG in NORMAL SALINE 100 ML IV PRN; +LIDOCAINE 0.5% INJ-PF (5 MG/ML) 50 ML SDV ONE; -NORMAL SALINE 250 ML IV PRN
[2016-08-22 10:30] VITALS: BP 145/63
[2016-08-22 10:40] LABS: ABSOLUTE EOSINOPHILS # (AUTO) 0.1 10^3/uL (0.0-0.6); ABSOLUTE LYMPHOCYTES (AUTO) 0.5 10^3/uL (0.5-4.7); ABSOLUTE MONOCYTES (AUTO) 0.2 10^3/uL (0.1-1.4); ABSOLUTE NEUT (AUTO) 1.7 10^3/uL (1.7-8.2); EOSINOPHILS % (AUTO) 4.9 % (0-6); HEMATOCRIT 24.6 % (36.0-47.0); HGB HCT DIFFERENCE -1.5; LYMPHOCYTES % (AUTO) 20.7 % (13-45); MEAN CORPUSCULAR HEMOGLOBIN 28.4 pg (27.0-33.4); MEAN CORPUSCULAR HGB CONC 31.4 g/dL (32.0-36.0); MEAN CORPUSCULAR VOLUME 91 fl (80-97); MONOCYTES % (AUTO) 9.2 % (3-13); RED BLOOD COUNT 2.71 10^6/uL (3.72-5.28); RED CELL DISTRIBUTION WIDTH 20.3 % (11.5-14.0); SEGMENTED NEUTROPHILS % (AUTO) 64.2 % (42-78); WHITE BLOOD COUNT 2.6 10^3/uL (4.0-10.5)
[2016-08-22 10:50] LABS: ANION GAP 9 (5-19); BLOOD UREA NITROGEN 71 mg/dL (7-20); CALCIUM 8.8 mg/dL (8.4-10.2); CARBON DIOXIDE 30 mmol/L (22-30); CHLORIDE 105 mmol/L (98-107); CREATININE RESULT 1.38 mg/dL (0.52-1.25); GLUCOSE 104 mg/dL (75-110)
--- NOTE | 2016-08-22 10:51 | RADIOLOGY REPORT (SQ) ---
EXAM DESCRIPTION: CHEST SINGLE VIEW COMPLETED DATE/TIME: 08/22/2016 10:22 am REASON FOR STUDY: preop COMPARISON: 03/05/2016. EXAM PARAMETERS: NUMBER OF VIEWS: One view. TECHNIQUE: Single frontal radiographic view of the chest acquired. RADIATION DOSE: NA LIMITATIONS: None. FINDINGS: LUNGS AND PLEURA: Chronic interstitial changes are suggested. Mild pulmonary edema is sug gested. A 2 cm infrahilar mass cannot be ruled out on the right. MEDIASTINUM AND HILAR STRUCTURES: No masses. Contour normal. HEART AND VASCULAR STRUCTURES: Heart size is borderline. Pulmonary vascular congestion is present. BONES: No acute findings. HARDWARE: None in the chest. OTHER: No other significant finding. IMPRESSION: 1. Chronic lung changes. 2. Cardiomegaly with vascular congestion and mild pulmonary edema. 3. Possible infrahilar mass on the right. TECHNICAL DOCUMENTATION: JOB ID: [id number]
[2016-08-22 10:53] LABS: POTASSIUM 6.4 mmol/L (3.6-5.0)
[2016-08-22 11:33] LABS: HEMOGLOBIN 7.7 g/dL (12.0-15.5)
--- NOTE | 2016-08-23 00:14 | EKG REPORT ---
SEVERITY:- ABNORMAL ECG - SINUS RHYTHM RIGHT BUNDLE BRANCH BLOCK LVH BY VOLTAGE : Confirmed by: Noemi Hermosillo 23-Aug-2016 00:13:00
== END ==
LOC: CCL 09:50
PROVIDERS: ATTEND Surgery
DX: D50.0 Iron deficiency anemia secondary to blood loss (chronic) (principal); D63.1 Anemia in chronic kidney disease; E11.9 Type 2 diabetes mellitus without complications; J44.9 Chronic obstructive pulmonary disease, unspecified; E07.9 Disorder of thyroid, unspecified; R01.1 Cardiac murmur, unspecified; I25.2 Old myocardial infarction; K74.60 Unspecified cirrhosis of liver; I10 Essential (primary) hypertension; F32.9 Major depressive disorder, single episode, unspecified; E78.00 Pure hypercholesterolemia, unspecified; Z95.5 Presence of coronary angioplasty implant and graft; Z88.8 Allergy status to other drugs, medicaments and biological substances; Z88.5 Allergy status to narcotic agent; Z99.81 Dependence on supplemental oxygen; Z79.899 Other long term (current) drug therapy
CPT/HCPCS: 36415; 82962; 85025; 80048; 71010; 93005; 93010; J0690; A9270; J1644; J3490

== ENCOUNTER 2016-10-09 07:47 | Day surgery (SDC) | payer MEDICARE ==
[2016-10-09 07:45] LABS: HEMATOCRIT 26.3 % (36.0-47.0); HGB HCT DIFFERENCE -2.3; MEAN CORPUSCULAR HEMOGLOBIN 30.1 pg (27.0-33.4); MEAN CORPUSCULAR HGB CONC 30.3 g/dL (32.0-36.0); RED BLOOD COUNT 2.64 10^6/uL (3.72-5.28); RED CELL DISTRIBUTION WIDTH 27.8 % (11.5-14.0); WHITE BLOOD COUNT 3.8 10^3/uL (4.0-10.5)
[2016-10-09 07:56] LABS: ANION GAP 7 (5-19); BLOOD UREA NITROGEN 53 mg/dL (7-20); CALCIUM 8.4 mg/dL (8.4-10.2); CARBON DIOXIDE 34 mmol/L (22-30); CHLORIDE 105 mmol/L (98-107); CREATININE RESULT 1.14 mg/dL (0.52-1.25); GLUCOSE 116 mg/dL (75-110); POTASSIUM 4.9 mmol/L (3.6-5.0); SODIUM 146.3 mmol/L (137-145)
[2016-10-09] MEDS ORDERED: CEFAZOLIN 1 GM/D5W RTU 1 GM/50 ML RTUPB IV PRN (08:11)
[2016-10-09] MEDS ORDERED: 1/2 NORMAL SALINE 1,000 ML IV PRN (08:12)
[2016-10-09 08:35] LABS: MEAN CORPUSCULAR VOLUME 100 fl (80-97)
--- NOTE | 2016-10-09 09:04 | RADIOLOGY REPORT (SQ) ---
EXAM DESCRIPTION: CHEST PA/LATERAL COMPLETED DATE/TIME: 10/09/2016 8:19 am REASON FOR STUDY: PRE-OP COMPARISON: 08/22/2016 EXAM PARAMETERS: NUMBER OF VIEWS: two views TECHNIQUE: Digital Frontal and Lateral radiographic views of the chest acquired. RADIATION DOSE: NA LIMITATIONS: none FINDINGS: LUNGS AND PLEURA: Moderate chronic interstitial changes. No opacities, masses or pneumoth orax. No pleural effusion. MEDIASTINUM AND HILAR STRUCTURES: No masses or contour abnormalities. HEART AND VASCULAR STRUCTURES: Mild cardiomegaly. BONES: No acute findings. HARDWARE: None in the chest. OTHER: No other significant finding. IMPRESSION: Mild cardiomegaly and moderate chronic interstitial changes. TECHNICAL DOCUMENTATION: JOB ID: [id number] [employer]- All Rights Reserved
[2016-10-09] MEDS ORDERED: CEFAZOLIN 1 GM/D5W RTU 1 GM/50 ML RTUPB IV ONE (09:22)
[2016-10-09] MEDS ORDERED: DIAZEPAM 5 MG TABLET ONE (09:22)
[2016-10-09] MEDS ORDERED: BACITRACIN INJ 50,000 UNIT VIAL ONE (10:04)
[2016-10-09] MEDS ORDERED: FENTANYL CITRATE INJ/PF 100 MCG/2 ML AMPUL ONE (10:27)
[2016-10-09] MEDS ORDERED: MIDAZOLAM 2 MG/2 ML INJ ONE (10:27)
[2016-10-09] MEDS ORDERED: LIDOCAINE 0.5% INJ-PF (5 MG/ML) 50 ML SDV ONE (11:25)
--- NOTE | 2016-10-09 11:50 | PDOC DISCHARGE SUMMARY ---
Discharge Summary (SDC) - Discharge Final Diagnosis: #1 chronic anemia. 2. COPD. 3. Diabetes mellitus type 2. 4. Coronary artery disease. 5. Multiple comorbidities. Date of Surgery: 10/09/16 Discharge Date: 10/09/16 Condition: Fair Treatment or Instructions: Discharge home [after recovery per ASU criteria]. Diet , [ADA],as tolerated, when fully awake advance as tolerated. Activities within moderation encouraged. Follow up in my office by appointment in about [1 week]. Call for appointment. Leave wounds [covered], [keep clean and dry, until office visit in 1 week]. Important to keep sitting up for 48 hours, Flat for 48 hours. Medications per medication reconciliation form. Hold of on school/work [until evaluation in office]. May shower [in 48 hrs], [try to keep operated area as dry as possible]. Discharge Diet: Other (Comments) - ADA Respiratory Treatments at Home: Deep Breathing/Coughing Discharge Activity: Activity As Tolerated, Walk Frequently Report the Following to Your Physician Immediately: Shortness of Breath, Unusual Bleeding
--- NOTE | 2016-10-09 11:52 | Operative Report ---
Operative Report DATE OF SURGERY: 10/09/16 PREOPERATIVE DIAGNOSIS: #1 chronic anemia. 2. COPD. 3. Diabetes mellitus type 2. 4. Coronary artery disease. 5. Multiple comorbidities. POSTOPERATIVE DIAGNOSIS: #1 chronic anemia. Post insertion of Port-A-Cath. 2. COPD. 3. Diabetes mellitus type 2. 4. Coronary artery disease. 5. Multiple comorbidities. OPERATION: 1. Ultrasound evaluation and real-time axis in the right internal jugular vein. 2. Real-time access and insertion of Port-A-Cath, right internal jugular vein. 3. Angiogram and interpretation. SURGEON: [employer] SALES [employer] SERVICE ASSOCIATE: None ANESTHESIA: Moderate Sedation TISSUE REMOVED OR ALTERED: Not applicable. COMPLICATIONS: None ESTIMATED BLOOD LOSS: 5 mL. INTRAOPERATIVE FINDINGS: Of a satisfactory right internal jugular vein to support Port-A-Cath. Bleeding was right on top of the carotid arteries so that ultrasound guidance was great value. Hard copy documentation preserved. Satisfactory egress of blood and ingress of heparinized solution to report. Cath angiogram demonstrated smooth flow of contrast from the right atrium into the right ventricle. PROCEDURE: After obtaining informed consent, the patient was taken to the [operating room] and positioned supine. The [right] neck and chest were prepared with chlorhexidine and draped out with sterile linen. After the " universal timeout ", in which it was verified that the patient continued to receive antibiotic, the procedure commenced. A steriley sheathed ultrasound probe was used to evaluate the [right] internal jugular vein. Local anesthesia was infiltrated adjacent to the probe. Access into the [right] internal jugular vein was obtained using a micropuncture needle, followed by micropuncture wire and then a micropuncture catheter. This was followed by introduction of a 0.035 guidewire the tip of which was placed down into the inferior vena cava . The port sites was marked , locally anesthetized and incision made. Dissection now proceeded to the deep subcutaneous subcutaneous tissues so that a pocket for the port was made. Meticulous hemostasis was secured and the catheter was tunneled between the 2 incisions. Proximally, the catheter was now positioned using a peel-away sheath. Distally the catheter was tailored to an appropriate length and then mated to the port using the contained fixating device. The port was now placed in the pocket and the catheter optimally positioned. The port was accessed with a Rodriguez needle and an angiogram done under digital subtraction. The findings as dictated. With adequate and satisfactory positioning, both lumens of the chamber were irrigated with heparinized solution. The wounds were now closed using interrupted 3-0 PDS to the subcutaneous tissues and a continuous subcuticular suture of 4-0 Monocryl to the skin. These are reinforced with Steri-Strips over benzoin and then dressings applied. Copies of the dictated operative report for Dr. Khadar Sapp MD.
[2016-10-09 13:32] VITALS: BP 128/52
--- NOTE | 2016-10-09 16:30 | RADIOLOGY REPORT (SQ) ---
EXAM DESCRIPTION: PORTACATH INSERTION; GUIDANCE FLUOROSCOPIC COMPLETED DATE/TIME: 10/09/2016 1:29 pm REASON FOR STUDY: NEED FOR VASCULAR ACCESS D50.0 IRON DEFICIENCY ANEMIA SECONDARY TO BLOOD LOSS (CH ORALIA D63.1 ANEMIA IN CHRONIC KIDNEY DISEASE E11.9 TYPE 2 DIABETES MELLITUS WITHOUT COMPLICATIONS COMPARISON: None. FLUOROSCOPY TIME: 1.4 minutes 3 series of images saved to PACS. TECHNIQUE: Intra-operative images acquired during surgical procedure to evaluate progress. NUMBER OF IMAGES: 3 series of angiographic images saved to pac's LIMITATIONS: None. FINDINGS: Intra procedural imaging and fluoroscopy for Dr. Sapp IMPRESSION: Intra procedural imaging and fluoroscopy for Dr. Sapp COMMENT: Quality ID [id number]: Final reports for procedures using fluoroscopy that document radiation exp osure indices, or exposure time and number of fluorographic images (if radiation exposure indices are not available) Please consult full operative report of the attending physician for description of the procedure. TECHNICAL DOCUMENTATION: JOB ID: [id number] [employer]- All Rights Reserved
== END 2016-10-09 13:00 | disposition home or self-care (01) ==
LOC: SC 07:47
PROVIDERS: ATTEND Surgery
PROC: 05HM33Z Insertion of Infusion Device into Right Internal Jugular Vein, Percutaneous Approach (ICD-10-PCS; principal; 2016-10-09)
DX: D50.0 Iron deficiency anemia secondary to blood loss (chronic) (principal); E11.9 Type 2 diabetes mellitus without complications; I25.10 Atherosclerotic heart disease of native coronary artery without angina pectoris; D64.9 Anemia, unspecified; J44.9 Chronic obstructive pulmonary disease, unspecified; K74.60 Unspecified cirrhosis of liver; Z99.81 Dependence on supplemental oxygen; I25.2 Old myocardial infarction
CPT/HCPCS: 36415; 82962; 85027; 80048; 36561; 76937; 77001; 71020; C1788; Q9967; J3490 ×2; J0690; A9270; J3010; J2250

== ENCOUNTER 2016-10-24 14:51 | Emergency (ER) | payer MEDICARE, MEDICAID ==
[2016-10-24] MEDS ORDERED: IPRATROPIUM/ALBUTEROL 0.5-2.5 MG/3 ML AMPUL NEB ONE (15:02)
--- NOTE | 2016-10-24 15:03 | ER Document Report ---
ED Respiratory Problem - General Chief Complaint: Shortness Of Breath Stated Complaint: SHORTNESS OF BREATH Time Seen by Provider: 10/24/16 14:56 Mode of Arrival: Medic Information source: Patient, Emergency Med Personnel Notes: Patient is a 66-year-old female with CHF, COPD, diabetes who presents to the ER today for shortness of breath that worsened this morning. She states that she is on 3-1/2 L of oxygen at home and has had some swelling in her feet over the past week but she cannot get rid of with her Lasix. She is on 40 mg of Lasix once daily. She states that she has taken her albuterol treatments at home which did not really help with her shortness of breath. She admits to wheezing. She denies any fevers, chills, chest pain. TRAVEL OUTSIDE OF THE [place] IN LAST 30 DAYS: No - Related Data Allergies/Adverse Reactions: oxycodone Allergy (Severe, Verified 02/17/16 22:17) ended up in hospital with kidney failure codeine Allergy (Verified 02/17/16 22:17) midazolam HCl [From Versed] Allergy (Verified 02/17/16 22:17) ON VENT X 19 DAYS hydrocodone [Hydrocodone] Adverse Reaction (Mild, Verified 02/17/16 22:17) GI upset Past Medical History - General Information source: Patient - Social History Smoking Status: Former Smoker Family History: CAD, COPD - Past Medical History Cardiac Medical History: Reports: Hx Congestive Heart Failure, Hx Coronary Artery Disease, Hx Heart Attack - 1995, Hx Hypercholesterolemia, Hx Hypertension , Hx Heart Murmur Pulmonary Medical History: Reports: Hx Asthma, Hx Bronchitis, Hx COPD Denies: Hx Pneumonia Neurological Medical History: Denies: Hx Cerebrovascular Accident, Hx Seizures Endocrine Medical History: Reports: Hx Diabetes Mellitus Type 2, Hx Hypothyroidism Renal/ Medical History: Reports: Hx Renal Insufficiency. Denies: Hx Peritoneal Dialysis GI Medical History: Reports: Hx Cirrhosis, Hx Gastroesophageal Reflux Disease. Denies: Hx Hepatitis, Hx Hiatal Hernia, Hx Ulcer Musculoskeltal Medical History: Reports Hx Arthritis Psychiatric Medical History: Reports: Hx Depression - xanax, celaxa Infectious Medical History: Denies: Hx Hepatitis Past Surgical History: Reports: Hx Cardiac Catheterization, Hx Section - x3, Hx Cholecystectomy, Hx Coronary Stent - x12. Denies: Hx Mastectomy, Hx Open Heart Surgery, Hx Pacemaker - Immunizations Hx Diphtheria, Pertussis, Tetanus Vaccination: Yes Hx Pneumococcal Vaccination: 12/24/14 Review of Systems - Review of Systems Constitutional: No symptoms reported EENT: No symptoms reported Cardiovascular: See HPI Respiratory: See HPI Gastrointestinal: No symptoms reported Genitourinary: No symptoms reported Female Genitourinary: No symptoms reported Musculoskeletal: No symptoms reported Skin: See HPI Hematologic/Lymphatic: No symptoms reported Neurological/Psychological: No symptoms reported Physical Exam - Notes Notes: PHYSICAL EXAMINATION: GENERAL: On nasal cannula, working harder to breathe, in mild respiratory distress. HEAD: Atraumatic, normocephalic. EYES: Pupils equal round and reactive to light, extraocular movements intact, sclera anicteric, conjunctiva are normal. ENT: ear canals without erythema or foreign body, TMs pearly santamaria with good bony landmarks, nares patent, oropharynx clear without exudates. Moist mucous membranes. Airway patent NECK: Normal range of motion, supple without lymphadenopathy LUNGS: Moderate expiratory wheezes throughout, decreased airflow throughout, no rales or rhonchi appreciated. HEART: Regular rate and rhythm without murmurs ABDOMEN: Soft, no tenderness. No guarding, no rebound BACK: no vertebral tenderness, normal ROM GI/: no CVA tenderness EXTREMITIES: Normal range of motion, 1+ pitting edema bilateral lower extremities. No cyanosis. NEUROLOGICAL: Cranial nerves grossly intact. Normal sensory/motor exams. PSYCH: Normal mood, normal affect. SKIN: Warm, Dry, normal turgor, no rashes or lesions noted Course - Re-evaluation Re-evalutation: 10/24/16 18:54 Patient did much better after breathing treatments, DuoNeb, albuterol combination, Solu-Medrol IV given on ambulance. Chest x-ray reveals chronic scarring and possible pulmonary edema but no real acute pathology appreciated, EKG reveals a normal sinus rhythm with no evidence of ischemia, patient's hemoglobin is actually better than her norm at 9.1 today. Her venous blood gas surprisingly is good with a normal pCO2, patient wants to go home and refuses to be admitted here at the hospital because she has oxygen at home and can take care of herself at home she says. The lowest patient saturation did drop down to is 84% and that fall she was moving around and it appeared to be holding her breath without realizing it, I was present for this. Patient is on her normal oxygen that she is on at home here and on average satting in the 90s. Patient really wants to go home and although I advised her that even though she has oxygen at home I can attempt to admit her to the hospitalist she refuses. I did tell her that I was sending her home with a prescription for DuoNeb that she did not have back at home as well as prednisone for the next 5 days. She promises to do that and not do a lot of movement at home, take her breathing treatments every 4 hours. I have also advised that she increase her Lasix to 40 mg twice daily instead of once daily to try to get the fluid off of her lungs and legs. She states it is very easy for her to follow-up with her primary care provider and she will call tomorrow for an appointment. - Laboratory Result Diagrams: 10/24/16 16:00 10/24/16 16:00 Laboratory results interpreted by me: 10/24/16 10/24/16 10/24/16 16:00 16:00 16:41 WBC 3.1 L RBC 2.85 L Hgb 9.1 L Hct 28.4 L MCV 100 H D MCHC 31.9 L RDW 23.2 H Plt Count 59 L Seg Neutrophils % 80.3 H Lymphocytes % 11.9 L Absolute Lymphocytes 0.4 L VBG HCO3 34.1 H Carbon Dioxide 37 H BUN 35 H Est GFR (Non-Af Amer) 52 L Glucose 117 H Discharge - Discharge Clinical Impression: Obstructive chronic bronchitis with exacerbation CHF exacerbation Qualifiers: Congestive heart failure type: unspecified congestive heart failure type Qualified Code(s): I50.9 - Heart failure, unspecified Condition: Stable Disposition: HOME, SELF-CARE Additional Instructions: Return immediately for any new or worsening symptoms. Follow up with primary care provider, call tomorrow to make followup appointment. Prescriptions: Ipratropium/Albuterol Sulfate [Duoneb 3 ml Ampul] 3 ml NEB Q6 PRN #25 vial.neb PRN Reason: Prednisone 60 mg PO DAILY #15 tablet Referrals: JORDYN STEEN DO [Primary Care Provider] - Follow up as needed
--- NOTE | 2016-10-24 15:56 | RADIOLOGY REPORT (SQ) ---
EXAM DESCRIPTION: CHEST SINGLE VIEW COMPLETED DATE/TIME: 10/24/2016 3:40 pm REASON FOR STUDY: sob, wheezing COMPARISON: 10/09/2016. EXAM PARAMETERS: NUMBER OF VIEWS: One view. TECHNIQUE: Single frontal radiographic view of the chest acquired. RADIATION DOSE: NA LIMITATIONS: None. FINDINGS: LUNGS AND PLEURA: Again seen is diffuse interstitial prominence. No large pleural effusio n. No pneumothorax. MEDIASTINUM AND HILAR STRUCTURES: No masses. Contour normal. HEART AND VASCULAR STRUCTURES: Stable cardiomegaly. BONES: No acute findings. HARDWARE: Vascular access port. OTHER: No other significant finding. IMPRESSION: STABLE CARDIOMEGALY. DIFFUSE INTERSTITIAL PROMINENCE SIMILAR TO PRIOR STUDIES, PRESUMAB LY DUE TO CHRONIC SCARRING ALTHOUGH SUPERIMPOSED INTERSTITIAL EDEMA MAY BE PRESENT WELL. TECHNICAL DOCUMENTATION: JOB ID: [id number]
[2016-10-24 16:08] LABS: ABSOLUTE EOSINOPHILS # (AUTO) 0.1 10^3/uL (0.0-0.6); ABSOLUTE LYMPHOCYTES (AUTO) 0.4 10^3/uL (0.5-4.7); ABSOLUTE MONOCYTES (AUTO) 0.1 10^3/uL (0.1-1.4); ABSOLUTE NEUT (AUTO) 2.5 10^3/uL (1.7-8.2); BASOPHILS % (AUTO) 0.9 % (0-2); EOSINOPHILS % (AUTO) 2.3 % (0-6); HEMATOCRIT 28.4 % (36.0-47.0); HEMOGLOBIN 9.1 g/dL (12.0-15.5); HGB HCT DIFFERENCE -1.1; LYMPHOCYTES % (AUTO) 11.9 % (13-45); MEAN CORPUSCULAR HEMOGLOBIN 31.8 pg (27.0-33.4); MEAN CORPUSCULAR HGB CONC 31.9 g/dL (32.0-36.0); MONOCYTES % (AUTO) 4.6 % (3-13); RED BLOOD COUNT 2.85 10^6/uL (3.72-5.28); RED CELL DISTRIBUTION WIDTH 23.2 % (11.5-14.0); SEGMENTED NEUTROPHILS % (AUTO) 80.3 % (42-78); WHITE BLOOD COUNT 3.1 10^3/uL (4.0-10.5)
[2016-10-24 16:23] LABS: CALCIUM 8.4 mg/dL (8.4-10.2)
[2016-10-24 16:24] LABS: ALANINE AMINOTRANSFERASE 26 U/L (9-52); ALBUMIN 3.6 g/dL (3.5-5.0); ALKALINE PHOSPHATASE 100 U/L (38-126); ANION GAP 5 (5-19); ASPARTATE AMINO TRANSFERASE 33 U/L (14-36); BILIRUBIN,DIRECT 0.4 mg/dL (0.0-0.4); BILIRUBIN,TOTAL 0.6 mg/dL (0.2-1.3); BLOOD UREA NITROGEN 35 mg/dL (7-20); CARBON DIOXIDE 37 mmol/L (22-30); CHLORIDE 102 mmol/L (98-107); CREATININE RESULT 1.05 mg/dL (0.52-1.25); GLUCOSE 117 mg/dL (75-110); POTASSIUM 4.4 mmol/L (3.6-5.0); SODIUM 144.1 mmol/L (137-145); TOTAL PROTEIN 7.8 g/dL (6.3-8.2)
[2016-10-24 16:34] LABS: MEAN CORPUSCULAR VOLUME 100 fl (80-97)
[2016-10-24 16:35] LABS: HYPOCHROMASIA SLIGHT; POLYCHROMASIA 1+
[2016-10-24 16:36] LABS: ROULEAUX SLIGHT
[2016-10-24] MEDS ORDERED: FUROSEMIDE INJ/PF 40 MG/4 ML SDV IV ONE (16:49)
[2016-10-24 16:51] LABS: VENOUS BLOOD BASE EXCESS 8.2 mmol/L; VENOUS BLOOD HCO3 34.1 mmol/L (20-32); VENOUS BLOOD PCO2 54.7 mmHg (35-63); VENOUS BLOOD PH 7.41 (7.30-7.42)
[2016-10-24] MEDS ORDERED: ALBUTEROL SULFATE 0.083% NEB 2.5 MG/3 ML AMPUL NEB ONE (17:16)
--- NOTE | 2016-10-24 18:20 | EKG REPORT ---
SEVERITY:- ABNORMAL ECG - SINUS RHYTHM PROBABLE LEFT ATRIAL ABNORMALITY RIGHT BUNDLE BRANCH BLOCK : Confirmed by: Chris Lynch MD 24-Oct-2016 18:20:17
[2016-10-24 19:05] VITALS: BP 150/65
== END 2016-10-24 19:59 | disposition home or self-care (01) ==
LOC: ER 14:51
DX: J44.1 Chronic obstructive pulmonary disease with (acute) exacerbation (principal); Z99.81 Dependence on supplemental oxygen; I11.0 Hypertensive heart disease with heart failure; I50.9 Heart failure, unspecified; E11.9 Type 2 diabetes mellitus without complications; I25.10 Atherosclerotic heart disease of native coronary artery without angina pectoris; I25.2 Old myocardial infarction; Z98.61 Coronary angioplasty status; Z79.899 Other long term (current) drug therapy; Z88.5 Allergy status to narcotic agent; Z88.4 Allergy status to anesthetic agent
CPT/HCPCS: 93005; 94640 ×2; 99285; 96374; 36415; 85025; 80053; 82803; 71010; 93010; J1940; A9270 ×2; J7620

== ENCOUNTER 2017-01-02 10:13 | Outpatient (CLI) | payer MEDICARE ==
[2017-01-02 11:24] LABS: HEMATOCRIT 23.1 % (36.0-47.0); HGB HCT DIFFERENCE -0.6; MEAN CORPUSCULAR HEMOGLOBIN 32.4 pg (27.0-33.4); MEAN CORPUSCULAR HGB CONC 32.5 g/dL (32.0-36.0); RED BLOOD COUNT 2.31 10^6/uL (3.72-5.28); RED CELL DISTRIBUTION WIDTH 22.7 % (11.5-14.0); WHITE BLOOD COUNT 3.6 10^3/uL (4.0-10.5)
[2017-01-02] MEDS ORDERED: ACETAMINOPHEN 325 MG TABLET PO PRN (11:27)
[2017-01-02] MEDS ORDERED: DIPHENHYDRAMINE HCL 25 MG CAPSULE PO PRN (11:28)
[2017-01-02] MEDS ORDERED: FUROSEMIDE INJ/PF 20 MG/2 ML SDV IV PRN (11:28)
[2017-01-02] MEDS ORDERED: DIPHENHYDRAMINE HCL 50 MG/ML VIAL IV PRN (11:30)
[2017-01-02 11:56] LABS: HEMOGLOBIN 7.5 g/dL (12.0-15.5)
[2017-01-02 11:57] LABS: MEAN CORPUSCULAR VOLUME 100 fl (80-97)
[2017-01-02 23:11] VITALS: BP 125/50
== END 2017-01-02 23:15 | disposition home or self-care (01) ==
LOC: II 10:13 → 5TH 10:14 → 2N 16:36 → II 23:15
PROVIDERS: ATTEND Internal Medicine
PROC: 30243N1 Transfusion of Nonautologous Red Blood Cells into Central Vein, Percutaneous Approach (ICD-10-PCS; principal; 2017-01-02)
DX: D50.0 Iron deficiency anemia secondary to blood loss (chronic) (principal); D63.1 Anemia in chronic kidney disease; N18.9 Chronic kidney disease, unspecified
CPT/HCPCS: 86900; 86901; 36415; 36430; 86870; 86850; 86922; 86920; P9016; A9270; J1200; J1940; 96374; 96375

== ENCOUNTER 2017-02-26 09:21 | Emergency (ER) | payer MEDICARE, MEDICAID ==
[2017-02-26] MEDS ORDERED: NORMAL SALINE 250 ML IV PRN ×2 (09:32)
[2017-02-26] MEDS ORDERED: DIPHENHYDRAMINE HCL 50 MG/ML VIAL IV ONE ×3 (09:33→16:40)
[2017-02-26] MEDS ORDERED: MORPHINE SULFATE 10 MG/ML INJ IV ONE (09:35)
--- NOTE | 2017-02-26 09:35 | ER Document Report ---
ED Medical Screen (RME) - General Chief Complaint: Abnormal Lab Results Stated Complaint: WEAKNESS Time Seen by Provider: 02/26/17 09:32 Notes: Patient was sent from her oncologist office for transfusion. She states her labs were just drawn this morning. She was told that her hemoglobin was 7 and she should come to the emergency department for transfusion. Patient has had multiple transfusions in the past and states that she oftentimes has reactions but they are controlled with Benadryl. TRAVEL OUTSIDE OF THE [place] IN LAST 30 DAYS: No - Related Data Allergies/Adverse Reactions: oxycodone Allergy (Severe, Verified 02/26/17 09:23) ended up in hospital with kidney failure codeine Allergy (Verified 02/26/17 09:23) midazolam HCl [From Versed] Allergy (Verified 02/26/17 09:23) ON VENT X 19 DAYS hydrocodone [Hydrocodone] Adverse Reaction (Mild, Verified 02/26/17 09:23) GI upset Past Medical History - Social History Chew tobacco use (# tins/day): No Frequency of alcohol use: None Drug Abuse: None - Past Medical History Cardiac Medical History: Reports: Hx Congestive Heart Failure, Hx Coronary Artery Disease, Hx Heart Attack - 1995, Hx Hypercholesterolemia, Hx Hypertension , Hx Heart Murmur Pulmonary Medical History: Reports: Hx Asthma, Hx Bronchitis, Hx COPD Denies: Hx Pneumonia Neurological Medical History: Denies: Hx Cerebrovascular Accident, Hx Seizures Endocrine Medical History: Reports: Hx Diabetes Mellitus Type 2, Hx Hypothyroidism Renal/ Medical History: Reports: Hx Renal Insufficiency. Denies: Hx Peritoneal Dialysis GI Medical History: Reports: Hx Cirrhosis, Hx Gastroesophageal Reflux Disease. Denies: Hx Hepatitis, Hx Hiatal Hernia, Hx Ulcer Musculoskeltal Medical History: Reports Hx Arthritis Psychiatric Medical History: Reports: Hx Depression - xanax, celaxa Infectious Medical History: Denies: Hx Hepatitis Past Surgical History: Reports: Hx Cardiac Catheterization, Hx Section - x3, Hx Cholecystectomy, Hx Coronary Stent - x12. Denies: Hx Mastectomy, Hx Open Heart Surgery, Hx Pacemaker - Immunizations Hx Diphtheria, Pertussis, Tetanus Vaccination: No History of Influenza Vaccine for 12/2016 - 05/2017 Season: Yes Influenza Administration Date for 12/2016 - 05/2017 Season: 01/04/17
[2017-02-26 10:17] LABS: ALANINE AMINOTRANSFERASE 38 U/L (9-52); ALBUMIN 3.8 g/dL (3.5-5.0); ALKALINE PHOSPHATASE 96 U/L (38-126); ANION GAP 11 (5-19); ASPARTATE AMINO TRANSFERASE 44 U/L (14-36); BILIRUBIN,DIRECT 0.3 mg/dL (0.0-0.4); BILIRUBIN,TOTAL 0.5 mg/dL (0.2-1.3); BLOOD UREA NITROGEN 82 mg/dL (7-20); CALCIUM 8.9 mg/dL (8.4-10.2); CARBON DIOXIDE 31 mmol/L (22-30); CHLORIDE 102 mmol/L (98-107); CREATININE RESULT 1.42 mg/dL (0.52-1.25); GLUCOSE 140 mg/dL (75-110); POTASSIUM 5.2 mmol/L (3.6-5.0); SODIUM 144.1 mmol/L (137-145); TOTAL PROTEIN 7.6 g/dL (6.3-8.2)
[2017-02-26 10:18] LABS: HEMATOCRIT 22.6 % (36.0-47.0); HGB HCT DIFFERENCE -0.4; MEAN CORPUSCULAR HEMOGLOBIN 30.5 pg (27.0-33.4); MEAN CORPUSCULAR HGB CONC 32.6 g/dL (32.0-36.0); MEAN CORPUSCULAR VOLUME 94 fl (80-97); RED BLOOD COUNT 2.41 10^6/uL (3.72-5.28); RED CELL DISTRIBUTION WIDTH 18.1 % (11.5-14.0)
--- NOTE | 2017-02-26 10:36 | ER Document Report ---
ED Medical Screen (RME) - General Chief Complaint: Abnormal Lab Results Stated Complaint: WEAKNESS Time Seen by Provider: 02/26/17 09:32 TRAVEL OUTSIDE OF THE [place] IN LAST 30 DAYS: No - Related Data Allergies/Adverse Reactions: oxycodone Allergy (Severe, Verified 02/26/17 09:23) ended up in hospital with kidney failure codeine Allergy (Verified 02/26/17 09:23) midazolam HCl [From Versed] Allergy (Verified 02/26/17 09:23) ON VENT X 19 DAYS hydrocodone [Hydrocodone] Adverse Reaction (Mild, Verified 02/26/17 09:23) GI upset Past Medical History - Social History Chew tobacco use (# tins/day): No Frequency of alcohol use: None Drug Abuse: None - Past Medical History Cardiac Medical History: Reports: Hx Congestive Heart Failure, Hx Coronary Artery Disease, Hx Heart Attack - 1995, Hx Hypercholesterolemia, Hx Hypertension , Hx Heart Murmur Pulmonary Medical History: Reports: Hx Asthma, Hx Bronchitis, Hx COPD Denies: Hx Pneumonia Neurological Medical History: Denies: Hx Cerebrovascular Accident, Hx Seizures Endocrine Medical History: Reports: Hx Diabetes Mellitus Type 2, Hx Hypothyroidism Renal/ Medical History: Reports: Hx Renal Insufficiency. Denies: Hx Peritoneal Dialysis GI Medical History: Reports: Hx Cirrhosis, Hx Gastroesophageal Reflux Disease. Denies: Hx Hepatitis, Hx Hiatal Hernia, Hx Ulcer Musculoskeltal Medical History: Reports Hx Arthritis Psychiatric Medical History: Reports: Hx Depression - xanax, celaxa Infectious Medical History: Denies: Hx Hepatitis Past Surgical History: Reports: Hx Cardiac Catheterization, Hx Section - x3, Hx Cholecystectomy, Hx Coronary Stent - x12. Denies: Hx Mastectomy, Hx Open Heart Surgery, Hx Pacemaker - Immunizations Hx Diphtheria, Pertussis, Tetanus Vaccination: No History of Influenza Vaccine for 12/2016 - 05/2017 Season: Yes Influenza Administration Date for 12/2016 - 05/2017 Season: 01/04/17 Course - Laboratory Result Diagrams: 02/26/17 09:47 02/26/17 09:47 Laboratory results interpreted by me: 02/26/17 02/26/17 09:47 09:47 Potassium 5.2 H Carbon Dioxide 31 H BUN 82 H Creatinine 1.42 H Est GFR ( Amer) 45 L Est GFR (Non-Af Amer) 37 L Glucose 140 H AST 44 H Crossmatch See Detail Doctor's Discharge - Discharge Referrals: JORDYN STEEN DO [Primary Care Provider] - Follow up as needed
--- NOTE | 2017-02-26 10:36 | ER Document Report ---
ED General - General Mode of Arrival: Ambulatory Information source: Patient TRAVEL OUTSIDE OF THE [place] IN LAST 30 DAYS: No - HPI Onset: This morning <MARIELA DUDLEY - Last Filed: 02/26/17 11:23> <OZZIE BORDEN - Last Filed: 02/26/17 16:29> - General Chief Complaint: Abnormal Lab Results Stated Complaint: WEAKNESS Time Seen by Provider: 02/26/17 09:32 Notes: Patient is a 66 year old female with history of CHF and anemia presents to the emergency department with outpatient orders from her oncologist for a transfusion, Benadryl and Lasix. Patient states that she has pain all over that starts in her neck and that she came to the emergency department because she could not stand the pain. Patient states that she is also weak. Patient states that this pain only happens when her blood is low. Patient states that her hemoglobin was 7.1. PCP is Dr. Segura. (MARIELA DUDLEY) - Related Data Allergies/Adverse Reactions: oxycodone Allergy (Severe, Verified 02/26/17 09:23) ended up in hospital with kidney failure codeine Allergy (Verified 02/26/17 09:23) midazolam HCl [From Versed] Allergy (Verified 02/26/17 09:23) ON VENT X 19 DAYS hydrocodone [Hydrocodone] Adverse Reaction (Mild, Verified 02/26/17 09:23) GI upset Past Medical History - General Information source: Patient - Social History Smoking Status: Never Smoker Chew tobacco use (# tins/day): No Frequency of alcohol use: None Drug Abuse: None Family History: CAD, COPD Patient has suicidal ideation: No Patient has homicidal ideation: No - Past Medical History Cardiac Medical History: Reports: Hx Congestive Heart Failure, Hx Coronary Artery Disease, Hx Heart Attack - 1995, Hx Hypercholesterolemia, Hx Hypertension , Hx Heart Murmur Pulmonary Medical History: Reports: Hx Asthma, Hx Bronchitis, Hx COPD Endocrine Medical History: Reports: Hx Diabetes Mellitus Type 2, Hx Hypothyroidism Renal/ Medical History: Reports: Hx Renal Insufficiency GI Medical History: Reports: Hx Cirrhosis, Hx Gastroesophageal Reflux Disease Musculoskeltal Medical History: Reports Hx Arthritis Psychiatric Medical History: Reports: Hx Depression - xanax, celaxa Past Surgical History: Reports: Hx Cardiac Catheterization, Hx Section - x3, Hx Cholecystectomy, Hx Coronary Stent - x12 - Immunizations Hx Diphtheria, Pertussis, Tetanus Vaccination: No Hx Pneumococcal Vaccination: 12/24/14 <MARIELA DUDLEY - Last Filed: 02/26/17 11:23> Review of Systems - Review of Systems Constitutional: See HPI, Weakness EENT: No symptoms reported Cardiovascular: No symptoms reported Respiratory: No symptoms reported Gastrointestinal: No symptoms reported Genitourinary: No symptoms reported Female Genitourinary: No symptoms reported Musculoskeletal: See HPI, Neck pain Skin: No symptoms reported Hematologic/Lymphatic: No symptoms reported Neurological/Psychological: No symptoms reported -: Yes All other systems reviewed and negative <MARIELA DUDLEY - Last Filed: 02/26/17 11:23> Physical Exam - General General appearance: Appears well, Alert, Other In distress: None - HEENT Head: Normocephalic, Atraumatic Eyes: Normal Conjunctiva: Normal Pupils: PERRL Mucous membranes: Moist - Respiratory Respiratory status: No respiratory distress Chest status: Nontender Breath sounds: Normal - Cardiovascular Rhythm: Regular Murmur: Yes - holosystolic murmur Friction rub: No Gallop: None auscultated - Abdominal Inspection: Obese Distension: No distension Bowel sounds: Normal Tenderness: Nontender Organomegaly: No organomegaly - Back Back: Normal - Extremities General upper extremity: Normal inspection, Normal ROM General lower extremity: Normal inspection, Normal ROM - Neurological Neuro grossly intact: Yes Cognition: Normal Orientation: AAOx4 Marcellus Coma Scale Eye Opening: Spontaneous Campbell Coma Scale Verbal: Oriented Campbell Coma Scale Motor: Obeys Commands Marcellus Coma Scale Total: 15 Speech: Normal - Psychological Associated symptoms: Normal affect, Normal mood - Pleasant - Skin Skin Temperature: Warm Skin Moisture: Dry Skin Color: Pale <MARIELA DUDLEY - Last Filed: 02/26/17 11:23> - Vital signs Vitals: Temp Pulse Resp BP Pulse Ox 98.3 F 89 24 H 107/53 L 95 02/26/17 09:27 02/26/17 09:27 02/26/17 09:27 02/26/17 09:27 02/26/17 09:27 Course - Laboratory Result Diagrams: 02/26/17 09:47 02/26/17 09:47 <MARIELA DUDLEY - Last Filed: 02/26/17 11:23> - Laboratory Result Diagrams: 02/26/17 09:47 02/26/17 09:47 - Transfer of Care Care transferred to following provider: <OZZIE BORDEN - Last Filed: 02/26/17 16:29> - Vital Signs Vital signs: Temp Pulse Resp BP Pulse Ox 97.9 F 91 12 105/36 L 100 02/26/17 15:35 02/26/17 14:40 02/26/17 14:40 02/26/17 14:38 02/26/17 14:40 - Laboratory Laboratory results interpreted by me: 02/26/17 02/26/17 02/26/17 09:47 09:47 09:47 RBC 2.41 L Hgb 7.4 L Hct 22.6 L RDW 18.1 H Plt Count 94 L Potassium 5.2 H Carbon Dioxide 31 H BUN 82 H Creatinine 1.42 H Est GFR ( Amer) 45 L Est GFR (Non-Af Amer) 37 L Glucose 140 H AST 44 H Crossmatch See Detail - Transfer of Care Notes: 02/26/17 16:29 Patient is scheduled to be discharged after she receives her second unit of packed RBCs. She should receive the ordered Lasix 20 mg IV after the first unit of packed RBCs as infused. She does not need a posttransfusion CBC. (OZZIE BORDEN) Discharge <MARIELA DUDLEY - Last Filed: 02/26/17 11:23> <OZZIE BORDEN - Last Filed: 02/26/17 16:29> - Discharge Clinical Impression: Anemia Qualifiers: Anemia type: unspecified type Qualified Code(s): D64.9 - Anemia, unspecified Condition: Stable Disposition: HOME, SELF-CARE Additional Instructions: Follow-up with Dr. Segura. RETURN TO THE EMERGENCY ROOM IF ANY NEW OR WORSENING SYMPTOMS. Referrals: JORDYN STEEN DO [Primary Care Provider] - Follow up as needed Scribe Attestation: 02/26/17 11:26 I personally performed the services described in the documentation, reviewed and edited the documentation which was dictated to the scribe in my presence, and it accurately records my words and actions. (OZZIE BORDEN) Scribe Documentation - Scribe Written by Scribe:: Ольга Love, 02/26/2017 10:49 acting as scribe for :: Mayi <MARIELA DUDLEY - Last Filed: 02/26/17 11:23>
[2017-02-26 11:02] LABS: HEMOGLOBIN 7.4 g/dL (12.0-15.5)
[2017-02-26] MEDS ORDERED: ONDANSETRON HCL INJ/PF 4 MG/2 ML SDV IV ONE (11:09)
[2017-02-26] MEDS ORDERED: DIPHENHYDRAMINE HCL 50 MG/ML VIAL ONE (12:52)
[2017-02-26] MEDS ORDERED: FUROSEMIDE INJ/PF 20 MG/2 ML SDV IV ONE (13:13)
[2017-02-26] MEDS ORDERED: FUROSEMIDE INJ/PF 20 MG/2 ML SDV ONE (16:45)
[2017-02-26] MEDS ORDERED: ACETAMINOPHEN 325 MG TABLET PO ONE (18:18)
[2017-02-26 19:53] VITALS: BP 110/60
== END 2017-02-26 19:53 | disposition home or self-care (01) ==
LOC: ER 09:21
DX: D64.9 Anemia, unspecified (principal); R53.1 Weakness; I50.9 Heart failure, unspecified; M79.1 Myalgia; I25.10 Atherosclerotic heart disease of native coronary artery without angina pectoris; E78.00 Pure hypercholesterolemia, unspecified; I11.0 Hypertensive heart disease with heart failure; J44.9 Chronic obstructive pulmonary disease, unspecified; E11.9 Type 2 diabetes mellitus without complications; E03.9 Hypothyroidism, unspecified; Z88.6 Allergy status to analgesic agent; I25.2 Old myocardial infarction; Z90.49 Acquired absence of other specified parts of digestive tract
CPT/HCPCS: 36591; 96376; 99285; 96374; 96375; 86900; 86901; 36415; 36430; 86870; 86850; 86922; 80053; 86920; P9016; A9270; J1200; J1940; J2270; J2405; J7050; 86902

== ENCOUNTER 2017-03-13 07:56 | Outpatient (CLI) | payer MEDICARE, MEDICAID ==
[~2017-03-13 07:56] MED LIST changes: -BACITRACIN INJ 50,000 UNIT VIAL INJ PRN; -CEFAZOLIN 1 GM/D5W RTU 1 GM/50 ML RTUPB IV PRN; -DEXTROSE 5%-1/2 NORMAL SALINE 1,000 ML IV PRN; -DIAZEPAM 5 MG TABLET ONE; +FERRIC CARBOXYMALTOSE 750 MG in NORMAL SALINE 250 ML IV PRN; -HEPARIN SODIUM,PORCINE/NS/PF 0 UNIT/0 ML RTUINJ IV ONE; -LIDOCAINE 0.5% INJ-PF (5 MG/ML) 50 ML SDV ONE; +NORMAL SALINE 250 ML IV PRN
[2017-03-13] MEDS ORDERED: DIPHENHYDRAMINE HCL 50 MG/ML VIAL IV PRN (08:11)
[2017-03-13 08:54] LABS: ABSOLUTE EOSINOPHILS # (AUTO) 0.2 10^3/uL (0.0-0.6); ABSOLUTE LYMPHOCYTES (AUTO) 0.6 10^3/uL (0.5-4.7); ABSOLUTE MONOCYTES (AUTO) 0.3 10^3/uL (0.1-1.4); ABSOLUTE NEUT (AUTO) 2.3 10^3/uL (1.7-8.2); BASOPHILS % (AUTO) 0.6 % (0-2); EOSINOPHILS % (AUTO) 4.7 % (0-6); HEMATOCRIT 29.5 % (36.0-47.0); HEMOGLOBIN 9.4 g/dL (12.0-15.5); HGB HCT DIFFERENCE -1.3; LYMPHOCYTES % (AUTO) 18.5 % (13-45); MEAN CORPUSCULAR HEMOGLOBIN 29.2 pg (27.0-33.4); MEAN CORPUSCULAR HGB CONC 31.9 g/dL (32.0-36.0); MEAN CORPUSCULAR VOLUME 92 fl (80-97); MONOCYTES % (AUTO) 8.2 % (3-13); RED BLOOD COUNT 3.22 10^6/uL (3.72-5.28); WHITE BLOOD COUNT 3.4 10^3/uL (4.0-10.5)
[2017-03-13 08:58] VITALS: BP 108/43
== END 2017-03-13 09:20 | disposition home or self-care (01) ==
LOC: II 07:56 → 5TH 07:58 → II 09:20
PROVIDERS: ATTEND Internal Medicine
PROC: 3E043GC Introduction of Other Therapeutic Substance into Central Vein, Percutaneous Approach (ICD-10-PCS; principal; 2017-03-13)
DX: D50.8 Other iron deficiency anemias (principal); K90.9 Intestinal malabsorption, unspecified
CPT/HCPCS: 36415; 85025; 96367; 96375; J1200; J7050; J1439; 96374

== ENCOUNTER 2017-04-17 07:33 | Inpatient (IN) | payer MEDICARE ==
[2017-04-17] MEDS ORDERED: MORPHINE SULFATE 10 MG/ML INJ IV ONE ×2 (08:31→10:07)
[2017-04-17] MEDS ORDERED: ALBUTEROL SULFATE 0.083% NEB 2.5 MG/3 ML AMPUL NEB ONE ×2 (08:31→12:47)
[2017-04-17 08:32] LABS: ABSOLUTE EOSINOPHILS # (AUTO) 0.2 10^3/uL (0.0-0.6); ABSOLUTE LYMPHOCYTES (AUTO) 0.4 10^3/uL (0.5-4.7); ABSOLUTE MONOCYTES (AUTO) 0.3 10^3/uL (0.1-1.4); ABSOLUTE NEUT (AUTO) 3.1 10^3/uL (1.7-8.2); BASOPHILS % (AUTO) 0.4 % (0-2); EOSINOPHILS % (AUTO) 4.7 % (0-6); HEMATOCRIT 30.3 % (36.0-47.0); HEMOGLOBIN 9.4 g/dL (12.0-15.5); LYMPHOCYTES % (AUTO) 9.9 % (13-45); MEAN CORPUSCULAR HEMOGLOBIN 30.8 pg (27.0-33.4); MEAN CORPUSCULAR HGB CONC 31.2 g/dL (32.0-36.0); MEAN CORPUSCULAR VOLUME 99 fl (80-97); MONOCYTES % (AUTO) 6.9 % (3-13); RED BLOOD COUNT 3.07 10^6/uL (3.72-5.28); SEGMENTED NEUTROPHILS % (AUTO) 78.1 % (42-78); TOTAL CELLS COUNTED % (AUTO) 100 %
--- NOTE | 2017-04-17 08:46 | RADIOLOGY REPORT (SQ) ---
EXAM DESCRIPTION: CHEST SINGLE VIEW COMPLETED DATE/TIME: 04/17/2017 8:32 am REASON FOR STUDY: Chest Pain, Shortness of Breath COMPARISON: 10/24/2016. NUMBER OF VIEWS: One view. TECHNIQUE: Single frontal radiographic view of the chest acquired. LIMITATIONS: None. FINDINGS: LUNGS AND PLEURA: Patchy multifocal areas of bilateral airspace disease. Interstitial pro minence. Some of the findings look chronic. No pneumothorax. No large pleural effusions. MEDIASTINUM AND HILAR STRUCTURES: Stable contours. HEART AND VASCULAR STRUCTURES: Stable heart size. BONES: Grossly intact. HARDWARE: Right port, tip to the cavoatrial junction. OTHER: No other significant finding. IMPRESSION: 1. Bilateral airspace and interstitial opacities, much of which may be chronic given th e relative stability since last year studies. TECHNICAL DOCUMENTATION: JOB ID: [id number] [employer]- All Rights Reserved
[2017-04-17 08:52] LABS: PLATELET COUNT 95 10^3/uL (150-450)
[2017-04-17 08:53] LABS: ALANINE AMINOTRANSFERASE 35 U/L (9-52); ALBUMIN 3.7 g/dL (3.5-5.0); ALKALINE PHOSPHATASE 101 U/L (38-126); ANION GAP 8 (5-19); ANISOCYTOSIS 2+; ASPARTATE AMINO TRANSFERASE 44 U/L (14-36); BILIRUBIN,DIRECT 0.3 mg/dL (0.0-0.4); BILIRUBIN,TOTAL 0.4 mg/dL (0.2-1.3); BLOOD UREA NITROGEN 33 mg/dL (7-20); CALCIUM 8.4 mg/dL (8.4-10.2); CARBON DIOXIDE 32 mmol/L (22-30); CHLORIDE 106 mmol/L (98-107); GLUCOSE 134 mg/dL (75-110); PLATELET COMMENT DECREASED; POLYCHROMASIA 1+; POTASSIUM 4.7 mmol/L (3.6-5.0); ROULEAUX SLIGHT; SODIUM 145.5 mmol/L (137-145); TOTAL PROTEIN 7.8 g/dL (6.3-8.2)
[2017-04-17 08:56] LABS: CREATINE KINASE < 20 U/L (30-135)
[2017-04-17 09:05] LABS: CREATINE KINASE MB 0.29 ng/mL (<4.55)
[2017-04-17 09:06] LABS: TROPONIN I < 0.012 ng/mL
[2017-04-17] MEDS ORDERED: IPRATROPIUM/ALBUTEROL 0.5-2.5 MG/3 ML AMPUL NEB ONE (10:07)
[2017-04-17] MEDS ORDERED: LEVOFLOXACIN 500 MG/D5W RTU 500 MG/100 ML RTUPB IV ONE (10:08)
--- NOTE | 2017-04-17 13:14 | EKG REPORT ---
SEVERITY:- ABNORMAL ECG - SINUS TACHYCARDIA PROBABLE LEFT ATRIAL ABNORMALITY RIGHT BUNDLE BRANCH BLOCK [facility] BY VOLTAGE : Confirmed by: Amanda Ramos MD 17-Apr-2017 13:14:01
[2017-04-17] MEDS ORDERED: ONDANSETRON HCL INJ/PF 4 MG/2 ML SDV IV ONE (13:38)
--- NOTE | 2017-04-17 13:39 | ER Document Report ---
Addendum entered and electronically signed by KAREN EUCEDA PA-C 04/17/17 17 :43: Course - Re-evaluation Re-evalutation: 04/17/17 17:42 called to pt's bedside, she became unresponsive and needed intubation. Dr. Dejesus at bedside intubated patient successfully. Dr. Castle at bedside during. - Vital Signs Vital signs: Temp Pulse Resp BP Pulse Ox 97.5 F 99 22 H 143/62 H 91 L 04/17/17 12:48 04/17/17 07:54 04/17/17 13:01 04/17/17 13:01 04/17/17 13:01 - Laboratory Result Diagrams: 04/17/17 08:00 04/17/17 08:00 Laboratory results interpreted by me: 04/17/17 04/17/17 04/17/17 08:00 08:00 11:51 RBC 3.07 L Hgb 9.4 L Hct 30.3 L MCV 99 H MCHC 31.2 L RDW 21.0 H Plt Count 95 L Seg Neutrophils % 78.1 H Lymphocytes % 9.9 L Absolute Lymphocytes 0.4 L VBG pH VBG pCO2 VBG HCO3 Sodium 145.5 H Carbon Dioxide 32 H BUN 33 H Glucose 134 H POC Glucose AST 44 H Creatine Kinase < 20 L NT-Pro-B Natriuret Pep 3120 H 04/17/17 04/17/17 12:16 14:04 RBC Hgb Hct MCV MCHC RDW Plt Count Seg Neutrophils % Lymphocytes % Absolute Lymphocytes VBG pH 7.25 L VBG pCO2 74.8 H* VBG HCO3 32.4 H Sodium Carbon Dioxide BUN Glucose POC Glucose 127 H AST Creatine Kinase NT-Pro-B Natriuret Pep Original Note: ED Cardiac - General Mode of Arrival: Ambulatory Information source: Patient TRAVEL OUTSIDE OF THE [place] IN LAST 30 DAYS: No <KAREN EUCEDA - Last Filed: 04/17/17 17:42> <FLY DEJESUS - Last Filed: 04/17/17 17:49> - General Chief Complaint: Chest Pain Stated Complaint: SHORTNESS OF BREATH Time Seen by Provider: 04/17/17 08:22 Notes: Patient is a 66 year old female with congestive heart failure, COPD, diabetes type 2 who presents to the ER today for chest pain to the left side of the chest with shortness of breath. Patient also has chronic anemia from iron deficiency and states that she receives multiple blood transfusions frequently and usually has chest pain with this anemia. Patient has had a heart attack in 1995. Patient does usually use 3-1/2 L of oxygen at home all the time. She admits to cough recently that has been productive with sweating and chills but has not taken her temperature. She denies any excess swelling to her lower extremities. (KAREN EUCEDA) - Related Data Allergies/Adverse Reactions: oxycodone Allergy (Severe, Verified 02/26/17 09:23) ended up in hospital with kidney failure codeine Allergy (Verified 02/26/17 09:23) midazolam HCl [From Versed] Allergy (Verified 02/26/17 09:23) ON VENT X 19 DAYS hydrocodone [Hydrocodone] Adverse Reaction (Mild, Verified 02/26/17 09:23) GI upset Past Medical History - General Information source: Patient - Social History Smoking Status: Former Smoker Family History: CAD, COPD Patient has suicidal ideation: No Patient has homicidal ideation: No - Past Medical History Cardiac Medical History: Reports: Hx Congestive Heart Failure, Hx Coronary Artery Disease, Hx Heart Attack - 1995, Hx Hypercholesterolemia, Hx Hypertension , Hx Heart Murmur Pulmonary Medical History: Reports: Hx Asthma, Hx Bronchitis, Hx COPD Denies: Hx Pneumonia Neurological Medical History: Denies: Hx Cerebrovascular Accident, Hx Seizures Endocrine Medical History: Reports: Hx Diabetes Mellitus Type 2, Hx Hypothyroidism Renal/ Medical History: Reports: Hx Renal Insufficiency. Denies: Hx Peritoneal Dialysis GI Medical History: Reports: Hx Cirrhosis, Hx Gastroesophageal Reflux Disease. Denies: Hx Hepatitis, Hx Hiatal Hernia, Hx Ulcer Musculoskeltal Medical History: Reports Hx Arthritis Psychiatric Medical History: Reports: Hx Depression - xanax, celaxa Infectious Medical History: Denies: Hx Hepatitis Past Surgical History: Reports: Hx Cardiac Catheterization, Hx Section - x3, Hx Cholecystectomy, Hx Coronary Stent - x12. Denies: Hx Mastectomy, Hx Open Heart Surgery, Hx Pacemaker - Immunizations Hx Diphtheria, Pertussis, Tetanus Vaccination: No Hx Pneumococcal Vaccination: 12/24/14 <KAREN EUCEDA - Last Filed: 04/17/17 17:42> Review of Systems - Review of Systems Constitutional: See HPI EENT: No symptoms reported Cardiovascular: No symptoms reported Respiratory: See HPI Gastrointestinal: No symptoms reported Genitourinary: No symptoms reported Female Genitourinary: No symptoms reported Musculoskeletal: No symptoms reported Skin: No symptoms reported Hematologic/Lymphatic: No symptoms reported Neurological/Psychological: No symptoms reported <KAREN EUCEDA - Last Filed: 04/17/17 17:42> Physical Exam <KAREN EUCEDA - Last Filed: 04/17/17 17:42> <FLY DEJESUS - Last Filed: 04/17/17 17:49> - Vital signs Vitals: Temp Pulse Resp BP Pulse Ox 98.1 F 99 22 H 157/63 H 100 04/17/17 07:54 04/17/17 07:54 04/17/17 07:54 04/17/17 07:54 04/17/17 07:54 - Notes Notes: PHYSICAL EXAMINATION: GENERAL: Chronically ill-appearing, appears short of breath, in mild acute distress. HEAD: Atraumatic, normocephalic. EYES: Pupils equal round and reactive to light, extraocular movements intact, sclera anicteric, conjunctiva are normal. ENT: ear canals without erythema or foreign body, TMs pearly santamaria with good bony landmarks, nares patent, oropharynx clear without exudates. Moist mucous membranes. NECK: Normal range of motion, supple without lymphadenopathy LUNGS: cough, moderate expiratory wheezes,no rales or rhonchi. HEART: Regular rate and rhythm without murmurs ABDOMEN: Soft, no tenderness. No guarding, no rebound BACK: no vertebral tenderness, normal ROM GI/: no CVA tenderness EXTREMITIES: Normal range of motion, no pitting edema. No cyanosis. NEUROLOGICAL: Cranial nerves grossly intact. Normal sensory/motor exams. PSYCH: Normal mood, normal affect. SKIN: Warm, Dry, normal turgor, no rashes or lesions noted (KAREN EUCEDA) Course - Laboratory Result Diagrams: 04/17/17 08:00 04/17/17 08:00 <KAREN EUCEDA - Last Filed: 04/17/17 17:42> - Laboratory Result Diagrams: 04/17/17 08:00 04/17/17 08:00 <FLY DEJESUS - Last Filed: 04/17/17 17:49> - Re-evaluation Re-evalutation: 04/17/17 16:42 Patient worsened actually during her ER visit, started out doing well on her 3-1 /2 L of oxygen nasal cannula, up to 94% on that, but then would not get above 82 % on 4 L of nasal cannula oxygen, we did have to put her on a simple mask which did bring her up to 97% on 4 L of oxygen. Venous blood gas revealed a pH of 7.25 and a PCO2 of 74.8. Patient has a possible pneumonia on chest x-ray, Levaquin was given. Patient admitted at this time to Dr. Castle for acute on chronic respiratory failure. 2 sets of cardiac enzymes were normal. 2 EKGs revealed no evidence of ischemia Normal sinus rhythm. (KAREN EUCEDA) 04/17/17 17:49 I was notified the patient was not responding appropriately I immediately went into the noted that she was on BiPAP but unresponsive pulses were noted, decision was made to intubate the patient hospitalist was notified. Initial time with glide scope was unsuccessful secondary attempts with direct visualization was performed patient will go to ICU (FLY DEJESUS) - Vital Signs Vital signs: Temp Pulse Resp BP Pulse Ox 97.5 F 99 22 H 143/62 H 91 L 04/17/17 12:48 04/17/17 07:54 04/17/17 13:01 04/17/17 13:01 04/17/17 13:01 - Laboratory Laboratory results interpreted by me: 04/17/17 04/17/17 04/17/17 08:00 08:00 11:51 RBC 3.07 L Hgb 9.4 L Hct 30.3 L MCV 99 H MCHC 31.2 L RDW 21.0 H Plt Count 95 L Seg Neutrophils % 78.1 H Lymphocytes % 9.9 L Absolute Lymphocytes 0.4 L VBG pH VBG pCO2 VBG HCO3 Sodium 145.5 H Carbon Dioxide 32 H BUN 33 H Glucose 134 H POC Glucose AST 44 H Creatine Kinase < 20 L NT-Pro-B Natriuret Pep 3120 H 04/17/17 04/17/17 12:16 14:04 RBC Hgb Hct MCV MCHC RDW Plt Count Seg Neutrophils % Lymphocytes % Absolute Lymphocytes VBG pH 7.25 L VBG pCO2 74.8 H* VBG HCO3 32.4 H Sodium Carbon Dioxide BUN Glucose POC Glucose 127 H AST Creatine Kinase NT-Pro-B Natriuret Pep Critical Care Note - Critical Care Note Total time excluding time spent on procedures (mins): 35 - 35 minutes spent in critical care time with patient, consulted with attending, speaking with family , placing orders and evaluating tests and labs. <KAREN EUCEDA - Last Filed: 04/17/17 17:42> Discharge - Discharge Admitting Provider: Hospitalist - Dr. Castle Unit Admitted: Telemetry <KAREN EUCEDA - Last Filed: 04/17/17 17:42> <FLY DEJESUS - Last Filed: 04/17/17 17:49> - Discharge Clinical Impression: Acute and chronic respiratory failure Qualifiers: Respiratory failure complication: hypoxia Qualified Code(s): J96.21 - Acute and chronic respiratory failure with hypoxia COPD (chronic obstructive pulmonary disease) Qualifiers: COPD type: unspecified COPD Qualified Code(s): J44.9 - Chronic obstructive pulmonary disease, unspecified Condition: Stable Disposition: ADMITTED INPATIENT
[2017-04-17 14:13] LABS: VENOUS BLOOD BASE EXCESS 3.6 mmol/L; VENOUS BLOOD HCO3 32.4 mmol/L (20-32); VENOUS BLOOD PH 7.25 (7.30-7.42)
[2017-04-17 14:16] LABS: VENOUS BLOOD PCO2 74.8 mmHg (35-63)
[2017-04-17] MEDS ORDERED: ALBUTEROL SULFATE 0.083% NEB 2.5 MG/3 ML AMPUL NEB PRN (14:41)
[2017-04-17] MEDS ORDERED: OXYCODONE-ACETAMINOPHEN 5-325 MG TABLET PO PRN (14:41)
[2017-04-17] MEDS ORDERED: ACETAMINOPHEN 325 MG TABLET PO PRN (14:41)
[2017-04-17] MEDS ORDERED: ONDANSETRON HCL INJ/PF 4 MG/2 ML SDV IV PRN (14:41)
[2017-04-17] MEDS ORDERED: METHYLPREDNISOLONE INJ 40 MG/1 ML SDV IV SCH (14:45)
[2017-04-17] MEDS ORDERED: DIPHENHYDRAMINE HCL 50 MG/ML VIAL IV ONE (14:57)
[2017-04-17] MEDS ORDERED: FUROSEMIDE INJ/PF 20 MG/2 ML SDV IV SCH ×2 (15:15→17:32)
[2017-04-17] MEDS ORDERED: ETOMIDATE INJ/PF 20 MG/10 ML SDV IV ONE ×2 (17:20→18:59)
[2017-04-17] MEDS ORDERED: PROPOFOL 100 ML IV ONE (17:24)
[2017-04-17] MEDS ORDERED: HYDRALAZINE HCL INJ/PF 20 MG/1 ML SDV IV PRN (17:28)
[2017-04-17] MEDS ORDERED: PHARMACY COMMUNICATION ORDER MC NR (17:30)
[2017-04-17] MEDS: PROPOFOL 100 ML IV PRN ×3 (17:35→21:47)
--- NOTE | 2017-04-17 18:17 | RADIOLOGY REPORT (SQ) ---
EXAM DESCRIPTION: CHEST SINGLE VIEW COMPLETED DATE/TIME: 04/17/2017 6:04 pm REASON FOR STUDY: POST INTUBATION COMPARISON: 04/17/2017 EXAM PARAMETERS: NUMBER OF VIEWS: One view. TECHNIQUE: Single frontal radiographic view of the chest acquired. RADIATION DOSE: NA LIMITATIONS: None. FINDINGS: LUNGS AND PLEURA: Extensive bilateral pulmonary opacity significantly increased since the earlier film differential includes aspiration, hemorrhage or pulmonary edema. MEDIASTINUM AND HILAR STRUCTURES: No masses. Contour normal. HEART AND VASCULAR STRUCTURES: Heart normal in size. Normal vasculature. BONES: No acute findings. HARDWARE: Endotracheal tube present. Tip 2 cm proximal to the isadora. History NG tube poorly visual ized however appears to be beneath the level of the diaphragm. OTHER: No other significant finding. IMPRESSION: Extensive and significant increase in bilateral airspace disease since the earlier chest x-ray. See above differential. Endotracheal tube in proper position. Distal NG tube beneath the l evel of the diaphragm. TECHNICAL DOCUMENTATION: JOB ID: [id number] [employer]- All Rights Reserved
[2017-04-17] MEDS ORDERED: PIPERACILLIN/TAZOBACTAM 3.375 GM VIAL IV SCH (18:45)
[2017-04-17] MEDS ORDERED: SUCCINYLCHOLINE CHLORIDE INJ 200 MG/10 ML VIAL IV ONE (18:59)
[2017-04-17] MEDS ORDERED: DEXTROSE 40% GEL 15 GM TUBE PO PRN ×2 (19:02)
[2017-04-17] MEDS ORDERED: GLUCAGON,HUMAN RECOMB 1 MG INJ IM PRN (19:02)
[2017-04-17] MEDS ORDERED: DEXTROSE 50%-WATER 25 GM/50 ML DISP.SYRIN IV PRN ×2 (19:02)
[2017-04-17] MEDS ORDERED: INSULIN LISPRO 100 UNIT/ML 3 ML VIAL SUBCUT PRN (19:02)
--- NOTE | 2017-04-17 19:03 | PDOC H&P ---
History of Present Illness Admission Date/PCP: 04/17/17 14:52 JORDYN STEEN DO Patient complains of: Shortness of breath worse today History of Present Illness: ROSALVA DOLL is a 66 year old female that has been having shortness of breath for a couple of days but got worse today. History taking is difficult since patient states that she was given a medication in emergency room and that needed Benadryl. Patient also related that she had chest pain but at the present time was gone. She uses O2 at home. Pain was relieved with morphine. Accordingly patient was not keeping good saturations and was placed on a facemask. Hospitalist service was contacted for further management and prompted to admit Past Medical History Cardiac Medical History: Reports: Congestive Heart Failure, Coronary Artery Disease, Myocardial Infarction - 1995, Hyperlipidema, Hypertension, Heart Murmur Pulmonary Medical History: Reports: Asthma, Bronchitis, Chronic Obstructive Pulmonary Disease (COPD) Denies: Pneumonia Neurological Medical History: Denies: Seizures Endocrine Medical History: Reports: Diabetes Mellitus Type 2, Hypothyroidism GI Medical History: Reports: Cirrhosis, Gastroesophageal Reflux Disease Denies: Hepatitis, Hiatal Hernia Musculoskeltal Medical History: Reports: Arthritis Psychiatric Medical History: Reports: Depression - xanax, celaxa Hematology: Reports: Anemia Denies: Sickle Cell Disease Past Surgical History Past Surgical History: Reports: Cardiac Catheterization, Section - x3, Cholecystectomy, Coronary Stent - x12 Denies: Amputation, Mastectomy, Pacemaker Social History Smoking Status: Former Smoker Frequency of Alcohol Use: None Hx Recreational Drug Use: No Drugs: None Hx Prescription Drug Abuse: No Family History Family History: CAD, COPD Parental Family History Reviewed: Yes Children Family History Reviewed: Yes Sibling(s) Family History Reviewed.: Yes Medication/Allergy Home Medications: Alprazolam [Xanax 0.25 mg Tablet] 0.25 mg PO BIDP PRN 04/17/17 Amlodipine Besylate [Norvasc 10 mg Tablet] 10 mg PO DAILY 04/17/17 Benazepril HCl [Lotensin 10 mg Tablet] 10 mg PO DAILY 04/17/17 Carvedilol [Coreg 6.25 mg Tablet] 6.25 mg PO Q12 04/17/17 Citalopram Hydrobromide [Celexa 20 mg Tablet] 20 mg PO DAILY 04/17/17 Esomeprazole Magnesium [Nexium] 40 mg PO DAILY 04/17/17 Folic Acid [Folvite 1 mg Tablet] 1 mg PO DAILY 04/17/17 Furosemide [Lasix 40 mg Tablet] 40 mg PO DAILY 04/17/17 Ipratropium/Albuterol Sulfate [Combivent Respimat 4 gm Mdi] 1 puff IH QID Ipratropium/Albuterol Sulfate [Duoneb 3 ml Ampul] 1 vial NEB QID 04/17/17 Isosorbide Dinitrate [Isordil Titradose 20 mg Tablet] 20 mg PO Q12 04/17/17 Latanoprost [Xalatan 0.005% Oph Soln 2.5 ml] 1 drop OU QHS 04/17/17 Levothyroxine Sodium [Synthroid] 0.175 mg PO DAILY 04/17/17 Lubiprostone [Amitiza 24 Mcg Capsule] 24 mcg PO DAILY 04/17/17 Mirtazapine [Remeron] 15 mg PO Q12 04/17/17 Zolpidem Tartrate [Ambien] 10 mg PO QHS 04/17/17 Allergies/Adverse Reactions: oxycodone Allergy (Severe, Verified 02/26/17 09:23) ended up in hospital with kidney failure codeine Allergy (Verified 02/26/17 09:23) midazolam HCl [From Versed] Allergy (Verified 02/26/17 09:23) ON VENT X 19 DAYS hydrocodone [Hydrocodone] Adverse Reaction (Mild, Verified 02/26/17 09:23) GI upset Review of Systems ROS unobtainable: Due to mental status Cardiovascular: PRESENT: chest pain Respiratory: PRESENT: dyspnea Physical Exam Vital Signs: Temp Pulse Resp BP Pulse Ox 97.5 F 99 22 H 143/62 H 91 L 04/17/17 12:48 04/17/17 07:54 04/17/17 13:01 04/17/17 13:01 04/17/17 13:01 General appearance: PRESENT: cooperative, obese Head exam: PRESENT: atraumatic, normocephalic Eye exam: PRESENT: EOMI, PERRLA Ear exam: PRESENT: normal external ear exam, TM's normal bilaterally Mouth exam: PRESENT: moist, neck supple Neck exam: PRESENT: full ROM. ABSENT: JVD, lymphadenopathy, tenderness Respiratory exam: PRESENT: crackles - Crackles heard throughout, decreased breath sounds Cardiovascular exam: PRESENT: systolic murmur, tachycardia. ABSENT: diastolic murmur Vascular exam: PRESENT: normal capillary refill GI/Abdominal exam: PRESENT: normal bowel sounds, soft. ABSENT: tenderness Extremities exam: PRESENT: other - 3+ edema extending to the pelvic area. ABSENT: full ROM Musculoskeletal exam: PRESENT: ambulatory. ABSENT: full ROM Neurological exam: PRESENT: alert, awake, oriented to person, oriented to place , oriented to time, oriented to situation, CN II-XII grossly intact Psychiatric exam: PRESENT: appropriate affect. ABSENT: normal mood Skin exam: PRESENT: intact, normal color Results Impressions: Chest X-Ray 04/17/17 07:40 IMPRESSION: 1. Bilateral airspace and interstitial opacities, much of which may be chronic given the relative stability since last year studies. Assessment & Plan - Diagnosis (1) Acute and chronic respiratory failure ([id number]) Qualifiers: Respiratory failure complication: hypoxia Qualified Code(s): J96.21 - Acute and chronic respiratory failure with hypoxia Is this a current diagnosis for this admission?: Yes Plan: Start BiPAP while he needed since at high risk of intubation (2) COPD (chronic obstructive pulmonary disease) Qualifiers: COPD type: unspecified COPD Qualified Code(s): J44.9 - Chronic obstructive pulmonary disease, unspecified Is this a current diagnosis for this admission?: Yes Plan: To place on nebulizer treatments, IV steroids and start antibiotic treatment (3) Acute on chronic systolic CHF (congestive heart failure) Is this a current diagnosis for this admission?: Yes Plan: Start IV Lasix (4) Thrombocytopenia Is this a current diagnosis for this admission?: Yes Plan: Unable to tell as etiology. To trend. (5) Anemia Qualifiers: Anemia type: unspecified type Qualified Code(s): D64.9 - Anemia, unspecified Is this a current diagnosis for this admission?: Yes Plan: Order anemia panel and to trend (6) HTN (hypertension) Qualifiers: Hypertension type: essential hypertension Qualified Code(s): I10 - Essential (primary) hypertension Is this a current diagnosis for this admission?: Yes Plan: To place on Norvasc, lisinopril and order hydralazine IV for rescue - Time Time Spent: 50 to 70 Minutes Medications reviewed and adjusted accordingly: Yes Anticipated discharge: Acute Rehab Within: within 72 hours - Inpatient Certification Based on my medical assessment, after consideration of the patient's comorbidities, presenting symptoms, or acuity I expect that the services needed warrant INPATIENT care.: Yes I certify that my determination is in accordance with my understanding of Medicare's requirements for reasonable and necessary INPATIENT services [42 CFR 412.3e].: Yes Medical Necessity: Need Close Monitoring Due to Risk of Patient Decompensation, Need For Continuous Telemetry Monitoring, Need for IV Antibiotics
[2017-04-17] MEDS: FUROSEMIDE INJ/PF 40 MG/4 ML SDV IV SCH (19:15)
[2017-04-17] MEDS: GUAIFENESIN 600 MG TABLET.SA PO SCH (19:19)
[2017-04-17] MEDS: AZITHROMYCIN 250 MG TABLET PO SCH (19:19)
[2017-04-17] MEDS: METHYLPREDNISOLONE INJ 40 MG/1 ML SDV IV SCH (19:22)
[2017-04-17] MEDS: IPRATROPIUM/ALBUTEROL 0.5-2.5 MG/3 ML AMPUL NEB SCH (20:01)
[2017-04-17] MEDS ORDERED: SUCCINYLCHOLINE CHLORIDE INJ 200 MG/10 ML VIAL ONE (20:54)
[2017-04-17] MEDS ORDERED: NORMAL SALINE 1000 ML 1,000 ML IV ONE (21:00)
[2017-04-17 21:02] LABS: ARTERIAL BLOOD BASE EXCESS 0.4 mmol/L; ARTERIAL BLOOD H2CO3 2.14 mmol/L (1.05-1.35); ARTERIAL BLOOD HCO3 29.3 mmol/L (20-26); ARTERIAL BLOOD O2 SATURATION 86.2 % (94-98); ARTERIAL BLOOD PH 7.23 (7.35-7.45); ARTERIAL BLOOD PO2 61.4 mmHg (80-100); ARTERIAL BLOOD TOTAL CO2 31.5 mmol/L (21-25)
[2017-04-17 21:03] LABS: ARTERIAL BLOOD FIO2 100%
[2017-04-17 21:05] LABS: ARTERIAL BLOOD PCO2 71.1 mmHg (35-45)
[2017-04-17] MEDS: PIPERACILLIN SODIUM/TAZOBACTAM 3.375 GM in NORMAL SALINE 100 ML IV SCH (21:46)
[2017-04-17] MEDS ORDERED: HEPARIN SOD (PORCINE) 5,000 UNIT/ML 1 ML SYRINGE SUBCUT SCH (22:00)
[2017-04-17] MEDS: NORMAL SALINE 1000 ML 1,000 ML IV PRN (22:43)
[2017-04-17 22:44] LABS: ARTERIAL BLOOD BASE EXCESS -0.7 mmol/L; ARTERIAL BLOOD H2CO3 1.63 mmol/L (1.05-1.35); ARTERIAL BLOOD HCO3 26.3 mmol/L (20-26); ARTERIAL BLOOD O2 SATURATION 88.6 % (94-98); ARTERIAL BLOOD PCO2 54.2 mmHg (35-45); ARTERIAL BLOOD PO2 60.9 mmHg (80-100); ARTERIAL BLOOD TOTAL CO2 27.9 mmol/L (21-25)
[2017-04-17 22:46] LABS: ARTERIAL BLOOD FIO2 60%
[2017-04-18] MEDS: METHYLPREDNISOLONE INJ 40 MG/1 ML SDV IV SCH ×3 (02:58→17:47)
[2017-04-18] MEDS: PROPOFOL 100 ML IV PRN ×2 (03:42→07:42)
[2017-04-18 04:19] LABS: ABSOLUTE LYMPHOCYTES (AUTO) 0.3 10^3/uL (0.5-4.7); ABSOLUTE MONOCYTES (AUTO) 0.2 10^3/uL (0.1-1.4); ABSOLUTE RETICS # 0.094 10^6/uL (0.028-0.122); BASOPHILS % (AUTO) 0.4 % (0-2); EOSINOPHILS % (AUTO) 0.2 % (0-6); HEMATOCRIT 25.7 % (36.0-47.0); HEMOGLOBIN 8.3 g/dL (12.0-15.5); LYMPHOCYTES % (AUTO) 11.7 % (13-45); MEAN CORPUSCULAR HEMOGLOBIN 31.2 pg (27.0-33.4); MEAN CORPUSCULAR HGB CONC 32.4 g/dL (32.0-36.0); MEAN CORPUSCULAR VOLUME 96 fl (80-97); MONOCYTES % (AUTO) 7.5 % (3-13); RED BLOOD COUNT 2.67 10^6/uL (3.72-5.28); RED CELL DISTRIBUTION WIDTH 20.2 % (11.5-14.0); RETICULOCYTE COUNT (AUTO) 3.52 % (0.66-2.85); SEGMENTED NEUTROPHILS % (AUTO) 80.2 % (42-78); TOTAL CELLS COUNTED % (AUTO) 100 %
[2017-04-18 04:22] LABS: ANION GAP 7 (5-19); BLOOD UREA NITROGEN 36 mg/dL (7-20); CALCIUM 8.3 mg/dL (8.4-10.2); CARBON DIOXIDE 27 mmol/L (22-30); CHLORIDE 109 mmol/L (98-107); GLUCOSE 87 mg/dL (75-110); IRON(TIBC) 30.4 ug/dL (37-170); MAGNESIUM 1.9 mg/dL (1.6-2.3); POTASSIUM 5.5 mmol/L (3.6-5.0); SODIUM 143.1 mmol/L (137-145); TRIGLYCERIDES 226 mg/dL (<150)
[2017-04-18] MEDS ORDERED: MORPHINE SULFATE 10 MG/ML INJ IV PRN (04:30)
[2017-04-18 04:52] LABS: WHITE BLOOD COUNT 2.5 10^3/uL (4.0-10.5)
[2017-04-18 04:53] LABS: PLATELET COUNT 77 10^3/uL (150-450)
[2017-04-18] MEDS: FUROSEMIDE INJ/PF 40 MG/4 ML SDV IV SCH ×2 (05:45→17:47)
[2017-04-18] MEDS: PIPERACILLIN SODIUM/TAZOBACTAM 3.375 GM in NORMAL SALINE 100 ML IV SCH ×3 (05:46→21:09)
[2017-04-18 06:04] LABS: FOLATE > 20.00 ng/mL (>2.76)
[2017-04-18 06:19] LABS: ARTERIAL BLOOD BASE EXCESS 2.9 mmol/L; ARTERIAL BLOOD H2CO3 1.32 mmol/L (1.05-1.35); ARTERIAL BLOOD HCO3 27.8 mmol/L (20-26); ARTERIAL BLOOD O2 SATURATION 98.7 % (94-98); ARTERIAL BLOOD PCO2 43.9 mmHg (35-45); ARTERIAL BLOOD PH 7.42 (7.35-7.45); ARTERIAL BLOOD PO2 136.1 mmHg (80-100); ARTERIAL BLOOD TOTAL CO2 29.1 mmol/L (21-25)
[2017-04-18 06:22] LABS: ARTERIAL BLOOD FIO2 60%
--- NOTE | 2017-04-18 06:50 | RADIOLOGY REPORT (SQ) ---
EXAM DESCRIPTION: CHEST SINGLE VIEW CLINICAL HISTORY: Pt intubated COMPARISON: 04/17/2017 FINDINGS: Single frontal view of the chest. Endotracheal tube with tip just above the isadora. NG tube with tip below the diaphragm. Right IJ Mediport with tip in the high right atrium. Cardiomegaly. Diffuse bilateral interstitial and alveolar opacities. Possible small bilateral pleural effusions. No pneumothorax. No new osseous abnormalities. Upper abdominal soft tissues are unremarkable. IMPRESSION: 1. No significant interval change.
[2017-04-18] MEDS: IPRATROPIUM/ALBUTEROL 0.5-2.5 MG/3 ML AMPUL NEB SCH ×3 (08:13→19:41)
--- NOTE | 2017-04-18 08:18 | PDOC PROGRESS REPORT ---
Subjective Progress Note for:: 04/18/17 Subjective:: Patient is still intubated but awake and communicating with staff and myself. She is requesting benadyl since she thinks is having a medication reaction. She was made aware that will hold off on benadryl since shortly after she was administered benadryl required intubation Reason For Visit: ACUTE ONCHRONIC RESPIRATORY FAILURE Physical Exam Vital Signs: Temp Pulse Resp BP Pulse Ox 100.9 F H 79 20 145/62 H 100 04/18/17 05:42 04/18/17 05:42 04/18/17 06:00 04/18/17 05:49 04/18/17 06:00 Intake & Output 04/17/17 04/18/17 04/19/17 06:59 06:59 06:59 Intake Total 2054 Output Total 475 Balance 1579 Weight 79.6 kg General appearance: PRESENT: no acute distress, cooperative, obese Head exam: PRESENT: atraumatic, normocephalic Eye exam: PRESENT: conjunctiva pink, EOMI, PERRLA Mouth exam: PRESENT: moist, neck supple Neck exam: PRESENT: full ROM. ABSENT: JVD, lymphadenopathy, tenderness Respiratory exam: PRESENT: crackles - adequate movement of air Cardiovascular exam: PRESENT: RRR. ABSENT: diastolic murmur, systolic murmur Vascular exam: PRESENT: normal capillary refill GI/Abdominal exam: PRESENT: normal bowel sounds, soft. ABSENT: tenderness Extremities exam: PRESENT: full ROM, +2 edema. ABSENT: clubbing Musculoskeletal exam: ABSENT: ambulatory Neurological exam: PRESENT: alert, oriented to person, oriented to time, CN II- XII grossly intact Psychiatric exam: PRESENT: appropriate affect, normal mood Skin exam: PRESENT: intact, normal color Results Laboratory Results: 04/18/17 03:51 04/18/17 03:51 04/17/17 04/17/17 04/17/17 20:55 21:35 22:30 WBC RBC Hgb Hct MCV MCH MCHC RDW Plt Count Seg Neutrophils % Lymphocytes % Monocytes % Eosinophils % Basophils % Absolute Neutrophils Absolute Lymphocytes Absolute Monocytes Absolute Eosinophils Absolute Basophils Retic Count (auto) Absolute Retic Carbonic Acid 2.14 H 1.63 H HCO3/H2CO3 Ratio 13:1 16:1 ABG pH 7.23 L 7.30 L ABG pCO2 71.1 H* 54.2 H ABG pO2 61.4 L 60.9 L ABG HCO3 29.3 H 26.3 H ABG O2 Saturation 86.2 L 88.6 L ABG Base Excess 0.4 -0.7 FiO2 100% 60% Sodium Potassium Chloride Carbon Dioxide Anion Gap BUN Creatinine Est GFR ( Amer) Est GFR (Non-Af Amer) Glucose Lactic Acid 1.5 Calcium Magnesium Iron TIBC % Saturation Ferritin Triglycerides Vitamin B12 Folate 04/18/17 04/18/17 04/18/17 03:51 03:51 05:57 WBC 2.5 L D RBC 2.67 L Hgb 8.3 L Hct 25.7 L MCV 96 MCH 31.2 MCHC 32.4 RDW 20.2 H Plt Count 77 L Seg Neutrophils % 80.2 H Lymphocytes % 11.7 L Monocytes % 7.5 Eosinophils % 0.2 Basophils % 0.4 Absolute Neutrophils 2.0 Absolute Lymphocytes 0.3 L Absolute Monocytes 0.2 Absolute Eosinophils 0.0 Absolute Basophils 0.0 Retic Count (auto) 3.52 H Absolute Retic 0.094 Carbonic Acid 1.32 HCO3/H2CO3 Ratio 21:1 ABG pH 7.42 ABG pCO2 43.9 ABG pO2 136.1 H ABG HCO3 27.8 H ABG O2 Saturation 98.7 H ABG Base Excess 2.9 FiO2 60% Sodium 143.1 Potassium 5.5 H Chloride 109 H Carbon Dioxide 27 Anion Gap 7 BUN 36 H Creatinine 1.18 Est GFR ( Amer) 55 L Est GFR (Non-Af Amer) 46 L Glucose 87 Lactic Acid Calcium 8.3 L Magnesium 1.9 Iron 30.4 L TIBC 318 % Saturation 10 Ferritin 196.00 Triglycerides 226 H Vitamin B12 > 1000.0 H Folate > 20.00 04/17/17 04/17/17 16:37 20:43 Troponin I < 0.012 0.016 Impressions: Chest X-Ray 04/18/17 06:00 IMPRESSION: 1. No significant interval change. Assessment & Plan - Diagnosis (1) Acute and chronic respiratory failure ([id number]) Qualifiers: Respiratory failure complication: hypoxia Qualified Code(s): J96.21 - Acute and chronic respiratory failure with hypoxia Is this a current diagnosis for this admission?: Yes Plan: Patient required intubation but doing well and in my opinion can be extubated. Dr Spence to see patient. (2) COPD (chronic obstructive pulmonary disease) Qualifiers: COPD type: unspecified COPD Qualified Code(s): J44.9 - Chronic obstructive pulmonary disease, unspecified Is this a current diagnosis for this admission?: Yes Plan: Continue nebulizer treatments, IV steroids and antibiotic treatment (3) Acute on chronic systolic CHF (congestive heart failure) Is this a current diagnosis for this admission?: Yes Plan: Continue diuresis and blood pressure control (4) Thrombocytopenia Is this a current diagnosis for this admission?: Yes Plan: Unable to tell as etiology. Worsened and to discontinue arixtra. (5) Anemia Qualifiers: Anemia type: unspecified type Qualified Code(s): D64.9 - Anemia, unspecified Is this a current diagnosis for this admission?: Yes Plan: Order anemia panel and to trend (6) HTN (hypertension) Qualifiers: Hypertension type: essential hypertension Qualified Code(s): I10 - Essential (primary) hypertension Is this a current diagnosis for this admission?: Yes Plan: Continue Norvasc, lisinopril and order hydralazine IV for rescue - Time Time Spent with patient: 15-24 minutes Medications reviewed and adjusted accordingly: Yes Anticipated discharge: Acute Rehab Within: within 72 hours - Inpatient Certification Based on my medical assessment, after consideration of the patient's comorbidities, presenting symptoms, or acuity I expect that the services needed warrant INPATIENT care.: Yes I certify that my determination is in accordance with my understanding of Medicare's requirements for reasonable and necessary INPATIENT services [42 CFR 412.3e].: Yes Medical Necessity: Need Close Monitoring Due to Risk of Patient Decompensation, Need For Continuous Telemetry Monitoring, Need for IV Antibiotics
--- NOTE | 2017-04-18 08:48 | EKG REPORT ---
SEVERITY:- ABNORMAL ECG - SINUS RHYTHM PROBABLE LEFT ATRIAL ABNORMALITY RIGHT BUNDLE BRANCH BLOCK : Confirmed by: Amanda Ramos MD 18-Apr-2017 08:47:06
[2017-04-18] MEDS ORDERED: LISINOPRIL 10 MG TABLET NG SCH (10:00)
[2017-04-18] MEDS ORDERED: FONDAPARINUX SODIUM INJ 2.5 MG/0.5 ML DISP.SYRIN SUBCUT SCH (10:00)
[2017-04-18] MEDS: GUAIFENESIN 600 MG TABLET.SA PO SCH ×2 (10:57→17:46)
[2017-04-18] MEDS: AMLODIPINE BESYLATE 5 MG TABLET PO SCH (10:58)
[2017-04-18] MEDS: DOCUSATE SODIUM 100 MG CAPSULE PO SCH (10:59)
[2017-04-18] MEDS: MORPHINE SULFATE 10 MG/ML INJ IV PRN (13:05)
[2017-04-18] MEDS: AZITHROMYCIN 250 MG TABLET PO SCH (17:46)
[2017-04-18] MEDS: NORMAL SALINE 1000 ML 1,000 ML IV PRN (20:16)
[2017-04-18] MEDS: ALPRAZOLAM 0.25 MG TABLET PO SCH (21:08)
[2017-04-18] MEDS: ZOLPIDEM TARTRATE 5 MG TABLET PO PRN (22:04)
[2017-04-19] MEDS: METHYLPREDNISOLONE INJ 40 MG/1 ML SDV IV SCH ×3 (02:00→17:00)
[2017-04-19 04:26] LABS: ABSOLUTE LYMPHOCYTES (AUTO) 0.3 10^3/uL (0.5-4.7); ABSOLUTE MONOCYTES (AUTO) 0.2 10^3/uL (0.1-1.4); ABSOLUTE NEUT (AUTO) 2.6 10^3/uL (1.7-8.2); BASOPHILS % (AUTO) 0.3 % (0-2); EOSINOPHILS % (AUTO) 0.1 % (0-6); HEMATOCRIT 25.8 % (36.0-47.0); HEMOGLOBIN 8.3 g/dL (12.0-15.5); LYMPHOCYTES % (AUTO) 10.6 % (13-45); MEAN CORPUSCULAR HEMOGLOBIN 31.4 pg (27.0-33.4); MEAN CORPUSCULAR HGB CONC 32.1 g/dL (32.0-36.0); MEAN CORPUSCULAR VOLUME 98 fl (80-97); MONOCYTES % (AUTO) 5.6 % (3-13); RED BLOOD COUNT 2.63 10^6/uL (3.72-5.28); RED CELL DISTRIBUTION WIDTH 20.4 % (11.5-14.0); SEGMENTED NEUTROPHILS % (AUTO) 83.4 % (42-78); TOTAL CELLS COUNTED % (AUTO) 100 %; WHITE BLOOD COUNT 3.1 10^3/uL (4.0-10.5)
[2017-04-19 04:54] LABS: ANION GAP 8 (5-19); BLOOD UREA NITROGEN 41 mg/dL (7-20); CARBON DIOXIDE 31 mmol/L (22-30); CHLORIDE 105 mmol/L (98-107); GLUCOSE 103 mg/dL (75-110); MAGNESIUM 1.8 mg/dL (1.6-2.3); PLATELET COUNT 80 10^3/uL (150-450); POTASSIUM 5.5 mmol/L (3.6-5.0); SODIUM 143.8 mmol/L (137-145)
[2017-04-19 05:18] LABS: ARTERIAL BLOOD BASE EXCESS 2.5 mmol/L; ARTERIAL BLOOD H2CO3 1.83 mmol/L (1.05-1.35); ARTERIAL BLOOD HCO3 29.4 mmol/L (20-26); ARTERIAL BLOOD O2 SATURATION 93.8 % (94-98); ARTERIAL BLOOD PCO2 60.9 mmHg (35-45); ARTERIAL BLOOD PO2 77.4 mmHg (80-100); ARTERIAL BLOOD TOTAL CO2 31.3 mmol/L (21-25)
[2017-04-19 05:24] LABS: ARTERIAL BLOOD FIO2 35
[2017-04-19] MEDS: PIPERACILLIN SODIUM/TAZOBACTAM 3.375 GM in NORMAL SALINE 100 ML IV SCH ×3 (05:37→22:26)
[2017-04-19] MEDS: MORPHINE SULFATE 10 MG/ML INJ IV PRN ×2 (05:37→13:25)
[2017-04-19] MEDS: FUROSEMIDE INJ/PF 40 MG/4 ML SDV IV SCH (05:37)
--- NOTE | 2017-04-19 06:51 | RADIOLOGY REPORT (SQ) ---
EXAM DESCRIPTION: CHEST SINGLE VIEW CLINICAL HISTORY: resp failure COMPARISON: 04/18/2017 FINDINGS: Single frontal view of the chest. Interval removal of endotracheal tube and NG tube. Right IJ Mediport with tip in the high right atrium. Cardiomegaly. Interval improved aeration with persistent patchy bilateral interstitial and alveolar opacities. No large effusion. No pneumothorax. No new osseous abnormalities. Upper abdominal soft tissues are unremarkable. IMPRESSION: 1. Interval improved aeration bilaterally with persistent scattered patchy interstitial and alveolar opacities. 2. Interval removal of endotracheal and NG tubes. Electronically signed by: Darinel Son 04/19/2017 5:50 AM
[2017-04-19] MEDS: IPRATROPIUM/ALBUTEROL 0.5-2.5 MG/3 ML AMPUL NEB SCH ×3 (08:28→20:02)
--- NOTE | 2017-04-19 09:08 | PDOC PROGRESS REPORT ---
Subjective Progress Note for:: 04/19/17 Subjective:: Patient was extubated 04/18. Complains of constipation and being hungry Review of symptoms All organ systems evaluated and negative except as in subjective All laboratories and significant diagnostics had been reviewed. Reason For Visit: ACUTE ONCHRONIC RESPIRATORY FAILURE Physical Exam Vital Signs: Temp Pulse Resp BP Pulse Ox 98.4 F 78 15 132/58 H 98 04/19/17 05:47 04/19/17 03:50 04/19/17 06:32 04/19/17 06:32 04/19/17 06:32 Intake & Output 04/18/17 04/19/17 04/20/17 06:59 06:59 06:59 Intake Total 2054 1609 Output Total 475 3265 Balance 1579 -1656 Weight 79.6 kg 78.6 kg General appearance: PRESENT: no acute distress, cooperative, well-developed, well-nourished Head exam: PRESENT: atraumatic, normocephalic Eye exam: PRESENT: conjunctiva pink, EOMI, PERRLA Mouth exam: PRESENT: moist, neck supple Neck exam: PRESENT: full ROM. ABSENT: JVD, tenderness Respiratory exam: PRESENT: crackles - soft basilar with adequate movement of air Cardiovascular exam: PRESENT: RRR. ABSENT: diastolic murmur, systolic murmur Vascular exam: PRESENT: normal capillary refill GI/Abdominal exam: PRESENT: normal bowel sounds, soft. ABSENT: tenderness Extremities exam: PRESENT: full ROM, pedal edema. ABSENT: clubbing, joint swelling Musculoskeletal exam: PRESENT: ambulatory Neurological exam: PRESENT: alert, awake, oriented to person, oriented to place , oriented to time, oriented to situation, CN II-XII grossly intact Psychiatric exam: PRESENT: appropriate affect, normal mood Skin exam: PRESENT: erythema, normal color Results Laboratory Results: 04/19/17 04:08 04/19/17 04:08 04/18/17 04/19/17 04/19/17 03:51 04:08 04:08 WBC 3.1 L RBC 2.63 L Hgb 8.3 L Hct 25.8 L MCV 98 H MCH 31.4 MCHC 32.1 RDW 20.4 H Plt Count 80 L Seg Neutrophils % 83.4 H Lymphocytes % 10.6 L Monocytes % 5.6 Eosinophils % 0.1 Basophils % 0.3 Absolute Neutrophils 2.6 Absolute Lymphocytes 0.3 L Absolute Monocytes 0.2 Absolute Eosinophils 0.0 Absolute Basophils 0.0 Carbonic Acid HCO3/H2CO3 Ratio ABG pH ABG pCO2 ABG pO2 ABG HCO3 ABG O2 Saturation ABG Base Excess FiO2 Sodium 143.8 Potassium 5.5 H Chloride 105 Carbon Dioxide 31 H Anion Gap 8 BUN 41 H Creatinine 1.18 Est GFR ( Amer) 55 L Est GFR (Non-Af Amer) 46 L Glucose 103 Calcium 9.0 Magnesium 1.8 Transferrin 220 04/19/17 04:55 WBC RBC Hgb Hct MCV MCH MCHC RDW Plt Count Seg Neutrophils % Lymphocytes % Monocytes % Eosinophils % Basophils % Absolute Neutrophils Absolute Lymphocytes Absolute Monocytes Absolute Eosinophils Absolute Basophils Carbonic Acid 1.83 H HCO3/H2CO3 Ratio 16:1 ABG pH 7.30 L ABG pCO2 60.9 H ABG pO2 77.4 L ABG HCO3 29.4 H ABG O2 Saturation 93.8 L ABG Base Excess 2.5 FiO2 35 Sodium Potassium Chloride Carbon Dioxide Anion Gap BUN Creatinine Est GFR ( Amer) Est GFR (Non-Af Amer) Glucose Calcium Magnesium Transferrin 04/17/17 04/17/17 16:37 20:43 Troponin I < 0.012 0.016 Impressions: Chest X-Ray 04/19/17 06:00 IMPRESSION: 1. Interval improved aeration bilaterally with persistent scattered patchy interstitial and alveolar opacities. 2. Interval removal of endotracheal and NG tubes. Assessment & Plan - Diagnosis (1) Acute and chronic respiratory failure ([id number]) Qualifiers: Respiratory failure complication: hypoxia Qualified Code(s): J96.21 - Acute and chronic respiratory failure with hypoxia Is this a current diagnosis for this admission?: Yes Plan: Acute resolved. Continue bipap at bedtime (2) COPD (chronic obstructive pulmonary disease) Qualifiers: COPD type: unspecified COPD Qualified Code(s): J44.9 - Chronic obstructive pulmonary disease, unspecified Is this a current diagnosis for this admission?: Yes Plan: Continue nebulizer treatments, IV steroids and antibiotic treatment (3) Acute on chronic systolic CHF (congestive heart failure) Is this a current diagnosis for this admission?: Yes Plan: Todecrease IV lasix. Discontinue lisinopril due to hyperkalemia (4) Thrombocytopenia Is this a current diagnosis for this admission?: Yes Plan: Unable to tell as etiology. Stable. To place on xarelto for DVT prophylaxis (5) Anemia Qualifiers: Anemia type: unspecified type Qualified Code(s): D64.9 - Anemia, unspecified Is this a current diagnosis for this admission?: Yes (6) HTN (hypertension) Qualifiers: Hypertension type: essential hypertension Qualified Code(s): I10 - Essential (primary) hypertension Is this a current diagnosis for this admission?: Yes Plan: Continue Norvasc and hydralazine for rescue. (7) Hyperkalemia Is this a current diagnosis for this admission?: Yes Plan: To discontinue GLORIA. Order one time dose kayexylate and trend - Time Time Spent with patient: 15-24 minutes Medications reviewed and adjusted accordingly: Yes Anticipated discharge: Home Within: within 72 hours - Inpatient Certification Based on my medical assessment, after consideration of the patient's comorbidities, presenting symptoms, or acuity I expect that the services needed warrant INPATIENT care.: Yes I certify that my determination is in accordance with my understanding of Medicare's requirements for reasonable and necessary INPATIENT services [42 CFR 412.3e].: Yes Medical Necessity: Need Close Monitoring Due to Risk of Patient Decompensation, Need for IV Antibiotics
[2017-04-19] MEDS ORDERED: SODIUM POLYSTYRENE SULFONATE 15 GM/60 ML PO ONE (09:30)
[2017-04-19] MEDS: AMLODIPINE BESYLATE 5 MG TABLET PO SCH (09:45)
[2017-04-19] MEDS: GUAIFENESIN 600 MG TABLET.SA PO SCH ×2 (09:46→22:26)
[2017-04-19] MEDS: ALPRAZOLAM 0.25 MG TABLET PO SCH ×2 (09:46→22:26)
[2017-04-19] MEDS: DOCUSATE SODIUM 100 MG CAPSULE PO SCH (09:47)
[2017-04-19] MEDS ORDERED: FUROSEMIDE INJ/PF 40 MG/4 ML SDV IV SCH (10:00)
--- NOTE | 2017-04-19 10:00 | XCELERA REPORT ---
[address] [address] Transthoracic Echocardiogram Report Name: ROSALVA DOLL Age: 66 yrs Gender: Female : 1950 Patient Status: Inpatient Patient Location: ICU^609^A Study Date: 04/18/2017 08:33 AM Height: 61 in Weight: 160 lb BSA: 1.7 m2 Procedure: A complete two-dimensional transthoracic echocardiogram was performed (2D, M-mode, spectral and color flow Doppler). The study was technically difficult with many images being suboptimal in quality. Reason For Study: eval for pulmonary hypertension Ordering Physician: TYLER SERVIN Performed By: Mari Lei Interpretation Summary The study was technically difficult with many images being suboptimal in quality. The left ventricular ejection fraction is normal. There is mild concentric left ventricular hypertrophy. The left ventricle is grossly normal size. Wall motion cannot be accurately commented on, but no definite regional wall motion abnormalities noted. The right ventricle is mild to moderately dilated. The right ventricular systolic function is normal. The left atrium is mildly dilated. The right atrium is mildly dilated. There is no mitral valve stenosis. There is mild aortic stenosis No aortic regurgitation is present. There is a peak gradient of 20 mm of Hg. There is a trace to mild amount of tricuspid regurgitation There is servere pulmonary hypertension by echo Right ventricular systolic pressure is estimated to be elevated at >60mmHg. There is no pericardial effusion. MMode/2D Measurements & Calculations RVDd: 3.2 cm LVIDd: 4.1 cm FS: 32.9 % Ao root diam: 2.4 cm IVSd: 0.99 cm LVIDs: 2.7 cm EDV(Teich): 73.8 ml LVPWd: 1.0 cm ESV(Teich): 28.2 ml Ao root area: 4.4 cm2 EF(Teich): 61.8 % Doppler Measurements & Calculations MV E max cristela: MV dec slope: Ao V2 max: LV V1 max P.4 cm/sec 213.2 cm/sec 7.5 mmHg MV A max cristela: 742.0 cm/sec2 Ao max PG: LV V1 max: 138.0 cm/sec MV dec time: 18.2 mmHg 137.1 cm/sec MV E/A: 1.3 0.25 sec MR max cristela: PA V2 max: PI end-d cristela: TR max cristela: 519.2 cm/sec 163.9 cm/sec 164.8 cm/sec 408.6 cm/sec MR max PG: PA max PG: TR max P.8 mmHg 10.7 mmHg 66.8 mmHg Left Ventricle The left ventricle is grossly normal size. There is mild concentric left ventricular hypertrophy. The left ventricular ejection fraction is normal. Doppler measurements suggest pseudonormalized left ventricular relaxation, which is associated with grade II/IV or mild to moderate diastolic dysfunction. Wall motion cannot be accurately commented on, but no definite regional wall motion abnormalities noted. Right Ventricle The right ventricle is mild to moderately dilated. The right ventricular systolic function is normal. Atria The right atrium is mildly dilated. The left atrium is mildly dilated. Mitral Valve There is moderate mitral leaflet calcification. There is moderate mitral annular calcification. There is no mitral valve stenosis. There is a mild amount of mitral regurgitation. Aortic Valve The aortic valve is moderately calcified. There is mild aortic stenosis. There is a peak gradient of 20 mm of Hg. No aortic regurgitation is present. Tricuspid Valve The tricuspid valve is not well visualized secondary to technical limitations. There is no tricuspid stenosis. There is a trace to mild amount of tricuspid regurgitation. There is servere pulmonary hypertension by echo. Right ventricular systolic pressure is estimated to be elevated at >60mmHg. Pulmonic Valve The pulmonic valve is not well visualized. Great Vessels The aortic root is not well visualized. The inferior vena cava appeared normal and decreased < 50% with respiration (RAP 10-15 mmHg). Effusions There is no pericardial effusion. : TYLER SERVIN > Noemi Hermosillo
--- NOTE | 2017-04-19 13:15 | PDOC CONSULTATION ---
Consultation Consult Date: 04/19/17 Consult reason:: Hematology/Oncology consultation was requested for patient with anemia and pancytopenia who was admitted for pneumonia. History of Present Illness Admission Date/PCP: 04/17/17 14:52 JORDYN STEEN DO History of Present Illness: ROSALVA DOLL is a 66 year old female that has been having shortness of breath for a couple of days. She was admitted for pneumonia. She is followed by my partner, Dr. 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 Her baseline CBC in our office show WBC 2.5-3.5; HGB 7-9; PLT 50 -90. When I saw her this morning around 7am, she stated that she was feeling some better. She is very hungry and is wearing a CPAP machine. Past Medical History Cardiac Medical History: Reports: Congestive Heart Failure, Coronary Artery Disease, Myocardial Infarction - 1995, Hyperlipidema, Hypertension, Heart Murmur Pulmonary Medical History: Reports: Asthma, Bronchitis, Chronic Obstructive Pulmonary Disease (COPD) Denies: Pneumonia Neurological Medical History: Denies: Seizures Endocrine Medical History: Reports: Diabetes Mellitus Type 2, Hypothyroidism GI Medical History: Reports: Cirrhosis, Gastroesophageal Reflux Disease Denies: Hepatitis, Hiatal Hernia Musculoskeltal Medical History: Reports: Arthritis Psychiatric Medical History: Reports: Depression - xanax, celaxa Hematology: Reports: Anemia Denies: Sickle Cell Disease Past Surgical History Past Surgical History: Reports: Cardiac Catheterization, Section - x3, Cholecystectomy, Coronary Stent - x12 Denies: Amputation, Mastectomy, Pacemaker Social History Smoking Status: Former Smoker Frequency of Alcohol Use: None Hx Recreational Drug Use: No Drugs: None Hx Prescription Drug Abuse: No - Advance Directive Resuscitation Status: Full Code Family History Family History: CAD, COPD Parental Family History Reviewed: Yes - Mother and Father both . Children Family History Reviewed: No Sibling(s) Family History Reviewed.: No Medication/Allergy Home Medications: Alprazolam [Xanax 0.25 mg Tablet] 0.25 mg PO BIDP PRN 04/17/17 Amlodipine Besylate [Norvasc 10 mg Tablet] 10 mg PO DAILY 04/17/17 Benazepril HCl [Lotensin 10 mg Tablet] 10 mg PO DAILY 04/17/17 Carvedilol [Coreg 6.25 mg Tablet] 6.25 mg PO Q12 04/17/17 Citalopram Hydrobromide [Celexa 20 mg Tablet] 20 mg PO DAILY 04/17/17 Esomeprazole Magnesium [Nexium] 40 mg PO DAILY 04/17/17 Folic Acid [Folvite 1 mg Tablet] 1 mg PO DAILY 04/17/17 Furosemide [Lasix 40 mg Tablet] 40 mg PO DAILY 04/17/17 Ipratropium/Albuterol Sulfate [Combivent Respimat 4 gm Mdi] 1 puff IH QID Ipratropium/Albuterol Sulfate [Duoneb 3 ml Ampul] 1 vial NEB QID 04/17/17 Isosorbide Dinitrate [Isordil Titradose 20 mg Tablet] 20 mg PO Q12 04/17/17 Latanoprost [Xalatan 0.005% Oph Soln 2.5 ml] 1 drop OU QHS 04/17/17 Levothyroxine Sodium [Synthroid] 0.175 mg PO DAILY 04/17/17 Lubiprostone [Amitiza 24 Mcg Capsule] 24 mcg PO DAILY 04/17/17 Mirtazapine [Remeron] 15 mg PO Q12 04/17/17 Zolpidem Tartrate [Ambien] 10 mg PO QHS 04/17/17 Allergies/Adverse Reactions: oxycodone Allergy (Severe, Verified 02/26/17 09:23) ended up in hospital with kidney failure codeine Allergy (Verified 02/26/17 09:23) midazolam HCl [From Versed] Allergy (Verified 02/26/17 09:23) ON VENT X 19 DAYS hydrocodone [Hydrocodone] Adverse Reaction (Mild, Verified 02/26/17 09:23) GI upset Review of Systems Constitutional: PRESENT: weakness Eyes: ABSENT: visual disturbances Ears: ABSENT: hearing changes Nose, Mouth, and Throat: PRESENT: sore throat Cardiovascular: ABSENT: chest pain Gastrointestinal: ABSENT: heartburn, nausea Genitourinary: ABSENT: dysuria Musculoskeletal: ABSENT: back pain Integumentary: ABSENT: rash Neurological: ABSENT: numbness Psychiatric: ABSENT: anxiety, depression Hematologic/Lymphatic: ABSENT: easy bleeding Physical Exam Vital Signs: Temp Pulse Resp BP Pulse Ox 97.2 F 90 16 130/56 H 97 04/19/17 11:21 04/19/17 11:21 04/19/17 11:21 04/19/17 11:21 04/19/17 11:21 Intake & Output 04/18/17 04/19/17 04/20/17 06:59 06:59 06:59 Intake Total 1389 1609 177 Output Total 475 9793 975 Balance 4405 -8592 -607 Weight 79.6 kg 78.6 kg General appearance: PRESENT: no acute distress, obese Exam: 66 year old female. Wearing CPAP, but talking without difficulty. Head exam: PRESENT: atraumatic Eye exam: PRESENT: PERRLA Ear exam: PRESENT: normal external ear exam Mouth exam: PRESENT: other - Unable to perform due to CPAP Teeth exam: PRESENT: other - Unable to perform due to CPAP Neck exam: ABSENT: tenderness Respiratory exam: PRESENT: clear to auscultation scott, unlabored Cardiovascular exam: PRESENT: RRR, systolic murmur GI/Abdominal exam: PRESENT: hyperactive bowel sounds, soft. ABSENT: tenderness Extremities exam: PRESENT: other - THERESA in place.. ABSENT: pedal edema Musculoskeletal exam: ABSENT: deformity Neurological exam: PRESENT: alert, awake, oriented to person, oriented to place Psychiatric exam: PRESENT: appropriate affect Focused psych exam: ABSENT: pressured speech, restlessness Skin exam: PRESENT: normal color Results Laboratory Results: 04/19/17 04:08 04/19/17 04:08 04/18/17 04/19/17 04/19/17 03:51 04:08 04:08 WBC 3.1 L RBC 2.63 L Hgb 8.3 L Hct 25.8 L MCV 98 H MCH 31.4 MCHC 32.1 RDW 20.4 H Plt Count 80 L Seg Neutrophils % 83.4 H Lymphocytes % 10.6 L Monocytes % 5.6 Eosinophils % 0.1 Basophils % 0.3 Absolute Neutrophils 2.6 Absolute Lymphocytes 0.3 L Absolute Monocytes 0.2 Absolute Eosinophils 0.0 Absolute Basophils 0.0 Carbonic Acid HCO3/H2CO3 Ratio ABG pH ABG pCO2 ABG pO2 ABG HCO3 ABG O2 Saturation ABG Base Excess FiO2 Sodium 143.8 Potassium 5.5 H Chloride 105 Carbon Dioxide 31 H Anion Gap 8 BUN 41 H Creatinine 1.18 Est GFR ( Amer) 55 L Est GFR (Non-Af Amer) 46 L Glucose 103 Calcium 9.0 Magnesium 1.8 Transferrin 220 04/19/17 04:55 WBC RBC Hgb Hct MCV MCH MCHC RDW Plt Count Seg Neutrophils % Lymphocytes % Monocytes % Eosinophils % Basophils % Absolute Neutrophils Absolute Lymphocytes Absolute Monocytes Absolute Eosinophils Absolute Basophils Carbonic Acid 1.83 H HCO3/H2CO3 Ratio 16:1 ABG pH 7.30 L ABG pCO2 60.9 H ABG pO2 77.4 L ABG HCO3 29.4 H ABG O2 Saturation 93.8 L ABG Base Excess 2.5 FiO2 35 Sodium Potassium Chloride Carbon Dioxide Anion Gap BUN Creatinine Est GFR ( Amer) Est GFR (Non-Af Amer) Glucose Calcium Magnesium Transferrin 04/17/17 04/17/17 16:37 20:43 Troponin I < 0.012 0.016 Impressions: Chest X-Ray 04/19/17 06:00 IMPRESSION: 1. Interval improved aeration bilaterally with persistent scattered patchy interstitial and alveolar opacities. 2. Interval removal of endotracheal and NG tubes. Assessment & Plan - Diagnosis (1) Pancytopenia Is this a current diagnosis for this admission?: Yes Plan: This is chronic due to cirrhosis and hypersplenism. I do not see a significant change from her known baseline. There is currently not any obvious bleeding. (2) Pneumonia Qualifiers: Laterality: bilateral Lung location: lower lobe of lung Plan: She is not neutropenic. Therefore, I do not recommend any special precautions. I believe she is being treated appropriately. - Plan Summary Plan Summary: She is on Xarelto. I would hold this for PLT <50 or for active bleeding. I see no indication for blood or platelet transfusion at this time. I will continue to follow her with you. Thank you for the consultation.
[2017-04-19] MEDS ORDERED: ACETAMINOPHEN 325 MG TABLET PO PRN (13:29)
[2017-04-19] MEDS ORDERED: HYDRALAZINE HCL INJ/PF 20 MG/1 ML SDV IV PRN (13:30)
--- NOTE | 2017-04-19 13:33 | Physician Advisory Note ---
Physician Advisor ProgressNote .: Pursuant to the plan for [facility], I have reviewed the medical record for this patient. Physician Advisor Statement: Nice documentation of Acute on Chronic Respiratory failure, Acute on Chr systolic CHF, thrombocytopenia with unknown etiology. Please consider documenting, if you agree: 1. "Acute exacerbation of COPD" (looks like tx'ing like acute exacerb, not just chronic COPD) 2. "Suspect Acute Bronchitis" (or state what is being tx'd with Zithromax & Zosyn, since COPD doesn't always need abx ....) Thanks! CK
--- NOTE | 2017-04-19 16:42 | PDOC CONSULTATION ---
Consultation Consult Date: 04/18/17 Attending physician:: TYLER SERVIN Consult reason:: resp failure History of Present Illness Admission Date/PCP: 04/17/17 14:52 JORDYN STEEN DO History of Present Illness: ROSALVA DOLL is a 66 year old female that has been having shortness of breath for a couple of days. She was admitted for pneumonia. She is followed by my partner, Dr. 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 Her baseline CBC in our office show WBC 2.5-3.5; HGB 7-9; PLT 50 -90. When I saw her this morning around 7am, she stated that she was feeling some better. She is very hungry and is wearing a CPAP machine. Past Medical History Cardiac Medical History: Reports: Congestive Heart Failure, Coronary Artery Disease, Myocardial Infarction - 1995, Hyperlipidema, Hypertension, Heart Murmur Pulmonary Medical History: Reports: Asthma, Bronchitis, Chronic Obstructive Pulmonary Disease (COPD) Denies: Pneumonia Neurological Medical History: Denies: Seizures Endocrine Medical History: Reports: Diabetes Mellitus Type 2, Hypothyroidism GI Medical History: Reports: Cirrhosis, Gastroesophageal Reflux Disease Denies: Hepatitis, Hiatal Hernia Musculoskeltal Medical History: Reports: Arthritis Psychiatric Medical History: Reports: Depression - xanax, celaxa Hematology: Reports: Anemia Denies: Sickle Cell Disease Past Surgical History Past Surgical History: Reports: Cardiac Catheterization, Section - x3, Cholecystectomy, Coronary Stent - x12 Denies: Amputation, Mastectomy, Pacemaker Social History Information Source: [facility] Records Smoking Status: Former Smoker Passive smoke exposure as: Both Frequency of Alcohol Use: None Hx Recreational Drug Use: No Drugs: None Hx Prescription Drug Abuse: No Family History Family History: CAD, COPD Parental Family History Reviewed: No Children Family History Reviewed: No Sibling(s) Family History Reviewed.: No Medication/Allergy Home Medications: Alprazolam [Xanax 0.25 mg Tablet] 0.25 mg PO BIDP PRN 04/17/17 Amlodipine Besylate [Norvasc 10 mg Tablet] 10 mg PO DAILY 04/17/17 Benazepril HCl [Lotensin 10 mg Tablet] 10 mg PO DAILY 04/17/17 Carvedilol [Coreg 6.25 mg Tablet] 6.25 mg PO Q12 04/17/17 Citalopram Hydrobromide [Celexa 20 mg Tablet] 20 mg PO DAILY 04/17/17 Esomeprazole Magnesium [Nexium] 40 mg PO DAILY 04/17/17 Folic Acid [Folvite 1 mg Tablet] 1 mg PO DAILY 04/17/17 Furosemide [Lasix 40 mg Tablet] 40 mg PO DAILY 04/17/17 Ipratropium/Albuterol Sulfate [Combivent Respimat 4 gm Mdi] 1 puff IH QID Ipratropium/Albuterol Sulfate [Duoneb 3 ml Ampul] 1 vial NEB QID 04/17/17 Isosorbide Dinitrate [Isordil Titradose 20 mg Tablet] 20 mg PO Q12 04/17/17 Latanoprost [Xalatan 0.005% Oph Soln 2.5 ml] 1 drop OU QHS 04/17/17 Levothyroxine Sodium [Synthroid] 0.175 mg PO DAILY 04/17/17 Lubiprostone [Amitiza 24 Mcg Capsule] 24 mcg PO DAILY 04/17/17 Mirtazapine [Remeron] 15 mg PO Q12 04/17/17 Zolpidem Tartrate [Ambien] 10 mg PO QHS 04/17/17 Allergies/Adverse Reactions: oxycodone Allergy (Severe, Verified 02/26/17 09:23) ended up in hospital with kidney failure codeine Allergy (Verified 02/26/17 09:23) midazolam HCl [From Versed] Allergy (Verified 02/26/17 09:23) ON VENT X 19 DAYS hydrocodone [Hydrocodone] Adverse Reaction (Mild, Verified 02/26/17 09:23) GI upset Review of Systems ROS unobtainable: Due to endotracheal tube Physical Exam Vital Signs: Temp Pulse Resp BP Pulse Ox 100.4 F 72 20 126/55 H 100 04/18/17 08:00 04/18/17 08:00 04/18/17 08:00 04/18/17 08:00 04/18/17 08:00 Intake & Output 04/17/17 04/18/17 04/19/17 06:59 06:59 06:59 Intake Total 2054 Output Total 475 140 Balance 1579 -140 Weight 79.6 kg General appearance: PRESENT: no acute distress, disheveled, obese. ABSENT: mild distress, morbidly obese, severe distress Head exam: PRESENT: atraumatic, normocephalic Eye exam: PRESENT: conjunctiva pale, EOMI. ABSENT: conjunctival injection, conjunctiva pink, nystagmus, periorbital swelling, scleral icterus Mouth exam: PRESENT: dry mucosa, neck supple, tongue midline, other - ET tube. ABSENT: laceration, moist Neck exam: ABSENT: carotid bruit, JVD, lymphadenopathy, thyromegaly, tracheal deviation, tracheostomy Respiratory exam: PRESENT: decreased breath sounds, prolonged expiratory phas, rales, rhonchi, symmetrical, unlabored, wheezes. ABSENT: accessory muscle use, chest wall tenderness, clear to auscultation scott, crackles, retraction, stridor , tachypnea Cardiovascular exam: PRESENT: RRR, +S1, +S2 Pulses: PRESENT: normal radial pulses GI/Abdominal exam: PRESENT: diminished bowel sounds, soft Extremities exam: ABSENT: clubbing, joint swelling Musculoskeletal exam: ABSENT: deformity, dislocation Neurological exam: ABSENT: alert, awake Skin exam: PRESENT: dry, warm Results Laboratory Results: 04/18/17 03:51 04/18/17 03:51 04/17/17 04/17/17 04/17/17 20:55 21:35 22:30 WBC RBC Hgb Hct MCV MCH MCHC RDW Plt Count Seg Neutrophils % Lymphocytes % Monocytes % Eosinophils % Basophils % Absolute Neutrophils Absolute Lymphocytes Absolute Monocytes Absolute Eosinophils Absolute Basophils Retic Count (auto) Absolute Retic Carbonic Acid 2.14 H 1.63 H HCO3/H2CO3 Ratio 13:1 16:1 ABG pH 7.23 L 7.30 L ABG pCO2 71.1 H* 54.2 H ABG pO2 61.4 L 60.9 L ABG HCO3 29.3 H 26.3 H ABG O2 Saturation 86.2 L 88.6 L ABG Base Excess 0.4 -0.7 FiO2 100% 60% Sodium Potassium Chloride Carbon Dioxide Anion Gap BUN Creatinine Est GFR ( Amer) Est GFR (Non-Af Amer) Glucose Lactic Acid 1.5 Calcium Magnesium Iron TIBC % Saturation Ferritin Triglycerides Vitamin B12 Folate 04/18/17 04/18/17 04/18/17 03:51 03:51 05:57 WBC 2.5 L D RBC 2.67 L Hgb 8.3 L Hct 25.7 L MCV 96 MCH 31.2 MCHC 32.4 RDW 20.2 H Plt Count 77 L Seg Neutrophils % 80.2 H Lymphocytes % 11.7 L Monocytes % 7.5 Eosinophils % 0.2 Basophils % 0.4 Absolute Neutrophils 2.0 Absolute Lymphocytes 0.3 L Absolute Monocytes 0.2 Absolute Eosinophils 0.0 Absolute Basophils 0.0 Retic Count (auto) 3.52 H Absolute Retic 0.094 Carbonic Acid 1.32 HCO3/H2CO3 Ratio 21:1 ABG pH 7.42 ABG pCO2 43.9 ABG pO2 136.1 H ABG HCO3 27.8 H ABG O2 Saturation 98.7 H ABG Base Excess 2.9 FiO2 60% Sodium 143.1 Potassium 5.5 H Chloride 109 H Carbon Dioxide 27 Anion Gap 7 BUN 36 H Creatinine 1.18 Est GFR ( Amer) 55 L Est GFR (Non-Af Amer) 46 L Glucose 87 Lactic Acid Calcium 8.3 L Magnesium 1.9 Iron 30.4 L TIBC 318 % Saturation 10 Ferritin 196.00 Triglycerides 226 H Vitamin B12 > 1000.0 H Folate > 20.00 04/17/17 04/17/17 16:37 20:43 Troponin I < 0.012 0.016 Impressions: Chest X-Ray 04/18/17 06:00 IMPRESSION: 1. No significant interval change. Assessment & Plan - Diagnosis (1) Pancytopenia Is this a current diagnosis for this admission?: Yes Plan: Patient is followed by Dr. Segura (2) Chronic hypoxemic respiratory failure Is this a current diagnosis for this admission?: Yes Plan: Labs- All tests 24 hr 04/17/17 04/17/17 04/18/17 20:55 22:30 05:57 ABG pH 7.23 L 7.30 L 7.42 ABG pCO2 71.1 H* 54.2 H 43.9 ABG pO2 61.4 L 60.9 L 136.1 H ABG O2 Saturation 86.2 L 88.6 L 98.7 H FiO2 100% 60% 60% (3) Symptomatic anemia Is this a current diagnosis for this admission?: Yes Plan: per [facility] [employer] - Time Total Critical Time (Minutes): 55
[2017-04-19] MEDS: RIVAROXABAN 10 MG TABLET PO SCH (17:00)
[2017-04-19] MEDS: AZITHROMYCIN 250 MG TABLET PO SCH (17:00)
[2017-04-19] MEDS ORDERED: GUAIFENESIN 600 MG TABLET.SA PO SCH (18:00)
[2017-04-19] MEDS: ZOLPIDEM TARTRATE 5 MG TABLET PO PRN (22:26)
[2017-04-19] MEDS: FUROSEMIDE INJ/PF 20 MG/2 ML SDV IV SCH (22:26)
[2017-04-19] MEDS: ONDANSETRON HCL INJ/PF 4 MG/2 ML SDV IV PRN (22:40)
[2017-04-20] MEDS: METHYLPREDNISOLONE INJ 40 MG/1 ML SDV IV SCH ×2 (02:19→09:51)
[2017-04-20 05:36] LABS: ABSOLUTE LYMPHOCYTES (AUTO) 0.3 10^3/uL (0.5-4.7); ABSOLUTE MONOCYTES (AUTO) 0.2 10^3/uL (0.1-1.4); BASOPHILS % (AUTO) 0.4 % (0-2); EOSINOPHILS % (AUTO) 0.2 % (0-6); HEMOGLOBIN 8.8 g/dL (12.0-15.5); MEAN CORPUSCULAR VOLUME 97 fl (80-97); RED CELL DISTRIBUTION WIDTH 20.2 % (11.5-14.0); TOTAL CELLS COUNTED % (AUTO) 100 %
[2017-04-20 05:49] LABS: ANION GAP 6 (5-19); BLOOD UREA NITROGEN 49 mg/dL (7-20); CALCIUM 9.4 mg/dL (8.4-10.2); CARBON DIOXIDE 34 mmol/L (22-30); CHLORIDE 102 mmol/L (98-107); GLUCOSE 112 mg/dL (75-110); MAGNESIUM 1.6 mg/dL (1.6-2.3); POTASSIUM 4.9 mmol/L (3.6-5.0); SODIUM 142.4 mmol/L (137-145)
[2017-04-20 06:07] LABS: HEMATOCRIT 27.2 % (36.0-47.0); RED BLOOD COUNT 2.82 10^6/uL (3.72-5.28); WHITE BLOOD COUNT 3.2 10^3/uL (4.0-10.5)
[2017-04-20 06:08] LABS: ABSOLUTE NEUT (AUTO) 2.7 10^3/uL (1.7-8.2); LYMPHOCYTES % (AUTO) 8.5 % (13-45); MEAN CORPUSCULAR HEMOGLOBIN 31.1 pg (27.0-33.4); MEAN CORPUSCULAR HGB CONC 32.2 g/dL (32.0-36.0); MONOCYTES % (AUTO) 6.3 % (3-13); SEGMENTED NEUTROPHILS % (AUTO) 84.6 % (42-78)
[2017-04-20 06:11] LABS: PLATELET COUNT 63 10^3/uL (150-450)
[2017-04-20] MEDS: MORPHINE SULFATE 10 MG/ML INJ IV PRN ×3 (06:20→18:30)
[2017-04-20] MEDS: PIPERACILLIN SODIUM/TAZOBACTAM 3.375 GM in NORMAL SALINE 100 ML IV SCH (06:22)
[2017-04-20 06:37] LABS: ARTERIAL BLOOD BASE EXCESS 6.5 mmol/L; ARTERIAL BLOOD O2 SATURATION 96.3 % (94-98); ARTERIAL BLOOD PCO2 66.4 mmHg (35-45); ARTERIAL BLOOD PH 7.33 (7.35-7.45); ARTERIAL BLOOD PO2 93.1 mmHg (80-100)
[2017-04-20 06:38] LABS: ARTERIAL BLOOD FIO2 3.5L
--- NOTE | 2017-04-20 08:25 | PDOC PROGRESS REPORT ---
Subjective Progress Note for:: 04/20/17 Subjective:: No acute events overnight, pt doing better today, no active bleeding Reason For Visit: ACUTE ONCHRONIC RESPIRATORY FAILURE Physical Exam Vital Signs: Temp Pulse Resp BP Pulse Ox 97.7 F 91 19 147/73 H 100 04/20/17 04:23 04/20/17 04:23 04/20/17 04:23 04/20/17 04:23 04/20/17 04:23 Intake & Output 04/19/17 04/20/17 04/21/17 06:59 06:59 06:59 Intake Total 1609 1677 Output Total 6721 6394 Balance -1949 -4867 Weight 78.6 kg 78.2 kg Results Laboratory Results: 04/20/17 05:02 04/20/17 05:02 04/20/17 04/20/17 04/20/17 05:02 05:02 06:10 WBC 3.2 L RBC 2.82 L Hgb 8.8 L Hct 27.2 L MCV 97 MCH 31.1 MCHC 32.2 RDW 20.2 H Plt Count 63 L Seg Neutrophils % 84.6 H Lymphocytes % 8.5 L Monocytes % 6.3 Eosinophils % 0.2 Basophils % 0.4 Absolute Neutrophils 2.7 Absolute Lymphocytes 0.3 L Absolute Monocytes 0.2 Absolute Eosinophils 0.0 Absolute Basophils 0.0 Carbonic Acid 2.00 H HCO3/H2CO3 Ratio 17:1 ABG pH 7.33 L ABG pCO2 66.4 H ABG pO2 93.1 ABG HCO3 34.0 H ABG O2 Saturation 96.3 ABG Base Excess 6.5 FiO2 3.5L Sodium 142.4 Potassium 4.9 Chloride 102 Carbon Dioxide 34 H Anion Gap 6 BUN 49 H Creatinine 0.99 Est GFR ( Amer) > 60 Est GFR (Non-Af Amer) 56 L Glucose 112 H Calcium 9.4 Magnesium 1.6 04/17/17 04/17/17 16:37 20:43 Troponin I < 0.012 0.016 Impressions: Chest X-Ray 04/19/17 06:00 IMPRESSION: 1. Interval improved aeration bilaterally with persistent scattered patchy interstitial and alveolar opacities. 2. Interval removal of endotracheal and NG tubes. Assessment & Plan - Diagnosis (1) Pancytopenia Is this a current diagnosis for this admission?: Yes Plan: 2nd cirrhosis, at baseline, no transfusion needed, con't anticoagulation at present, see us as prev scheduled. Will follow peripherally. - Time Time Spent with patient: 35 or more minutes
[2017-04-20] MEDS: IPRATROPIUM/ALBUTEROL 0.5-2.5 MG/3 ML AMPUL NEB SCH ×3 (08:50→21:07)
[2017-04-20] MEDS: AMLODIPINE BESYLATE 5 MG TABLET PO SCH (09:49)
[2017-04-20] MEDS: GUAIFENESIN 600 MG TABLET.SA PO SCH ×2 (09:50→22:06)
[2017-04-20] MEDS: ALPRAZOLAM 0.25 MG TABLET PO SCH ×2 (09:50→22:06)
[2017-04-20] MEDS: FUROSEMIDE INJ/PF 20 MG/2 ML SDV IV SCH (09:51)
[2017-04-20] MEDS: DOCUSATE SODIUM 100 MG CAPSULE PO SCH (09:52)
--- NOTE | 2017-04-20 10:17 | RADIOLOGY REPORT (SQ) ---
EXAM DESCRIPTION: CHEST SINGLE VIEW COMPLETED DATE/TIME: 04/20/2017 10:09 am REASON FOR STUDY: pna COMPARISON: 04/19/2017. EXAM PARAMETERS: NUMBER OF VIEWS: One view. TECHNIQUE: Single frontal radiographic view of the chest acquired. RADIATION DOSE: NA LIMITATIONS: None. FINDINGS: LUNGS AND PLEURA: Diffuse faint airspace disease in both lungs unchanged. No large pleura l effusion. No pneumothorax. MEDIASTINUM AND HILAR STRUCTURES: No masses. Contour normal. HEART AND VASCULAR STRUCTURES: Cardiomegaly unchanged. BONES: No acute findings. HARDWARE: Vascular access port. OTHER: No other significant finding. IMPRESSION: NO CHANGE IN APPEARANCE OF THE CHEST. TECHNICAL DOCUMENTATION: JOB ID: [id number] [employer]- All Rights Reserved
[2017-04-20] MEDS ORDERED: METOPROLOL SUCCINATE 50 MG TAB.SR.24H PO ONE (12:30)
[2017-04-20] MEDS: RIVAROXABAN 10 MG TABLET PO SCH (16:10)
--- NOTE | 2017-04-20 16:47 | PDOC PROGRESS REPORT ---
Subjective Progress Note for:: 04/20/17 Subjective:: Patient refers that feels better. She admits that she really likes to drink plenty a lot of water. Review of systems All organ systems evaluated and negative except as seen subjective All significant laboratories and diagnostics have been reviewed Reason For Visit: ACUTE ONCHRONIC RESPIRATORY FAILURE Physical Exam Vital Signs: Temp Pulse Resp BP Pulse Ox 98.4 F 97 16 139/59 H 97 04/20/17 08:27 04/20/17 08:50 04/20/17 08:50 04/20/17 08:27 04/20/17 08:50 Intake & Output 04/19/17 04/20/17 04/21/17 06:59 06:59 06:59 Intake Total 1609 1677 Output Total 8909 5062 Balance -4762 -7671 Weight 78.6 kg 78.2 kg General appearance: PRESENT: no acute distress, cooperative, obese Head exam: PRESENT: atraumatic, normocephalic Eye exam: PRESENT: EOMI, PERRLA Ear exam: PRESENT: normal external ear exam Mouth exam: PRESENT: moist, neck supple Neck exam: PRESENT: full ROM. ABSENT: JVD, lymphadenopathy, tenderness Respiratory exam: PRESENT: clear to auscultation scott Cardiovascular exam: PRESENT: tachycardia. ABSENT: diastolic murmur, systolic murmur Vascular exam: ABSENT: normal capillary refill GI/Abdominal exam: PRESENT: normal bowel sounds, soft. ABSENT: tenderness Extremities exam: PRESENT: full ROM. ABSENT: joint swelling, pedal edema Musculoskeletal exam: PRESENT: full ROM Neurological exam: PRESENT: alert, oriented to person, oriented to place, oriented to time, oriented to situation, CN II-XII grossly intact Psychiatric exam: PRESENT: appropriate affect, normal mood Skin exam: PRESENT: intact, normal color Results Laboratory Results: 04/20/17 05:02 04/20/17 05:02 04/20/17 04/20/17 04/20/17 05:02 05:02 06:10 WBC 3.2 L RBC 2.82 L Hgb 8.8 L Hct 27.2 L MCV 97 MCH 31.1 MCHC 32.2 RDW 20.2 H Plt Count 63 L Seg Neutrophils % 84.6 H Lymphocytes % 8.5 L Monocytes % 6.3 Eosinophils % 0.2 Basophils % 0.4 Absolute Neutrophils 2.7 Absolute Lymphocytes 0.3 L Absolute Monocytes 0.2 Absolute Eosinophils 0.0 Absolute Basophils 0.0 Carbonic Acid 2.00 H HCO3/H2CO3 Ratio 17:1 ABG pH 7.33 L ABG pCO2 66.4 H ABG pO2 93.1 ABG HCO3 34.0 H ABG O2 Saturation 96.3 ABG Base Excess 6.5 FiO2 3.5L Sodium 142.4 Potassium 4.9 Chloride 102 Carbon Dioxide 34 H Anion Gap 6 BUN 49 H Creatinine 0.99 Est GFR ( Amer) > 60 Est GFR (Non-Af Amer) 56 L Glucose 112 H Calcium 9.4 Magnesium 1.6 04/17/17 04/17/17 16:37 20:43 Troponin I < 0.012 0.016 Impressions: Chest X-Ray 04/20/17 06:00 IMPRESSION: NO CHANGE IN APPEARANCE OF THE CHEST. Assessment & Plan - Diagnosis (1) Acute and chronic respiratory failure ([id number]) Qualifiers: Respiratory failure complication: hypoxia Qualified Code(s): J96.21 - Acute and chronic respiratory failure with hypoxia Is this a current diagnosis for this admission?: Yes Plan: Acute resolved. Continue bipap at bedtime (2) COPD (chronic obstructive pulmonary disease) Qualifiers: COPD type: unspecified COPD Qualified Code(s): J44.9 - Chronic obstructive pulmonary disease, unspecified Is this a current diagnosis for this admission?: Yes Plan: We will discontinue IV steroids and antibiotics since after patient is treated major issue related to acute on chronic systolic congestive heart failure. (3) Acute on chronic systolic CHF (congestive heart failure) Is this a current diagnosis for this admission?: Yes Plan: Discontinue Lasix IV. Place patient on Lasix p.o. and Toprol-XL. Continue Norvasc and add lisinopril (4) Thrombocytopenia Is this a current diagnosis for this admission?: Yes Plan: Due to hypersplenism and cirrhosis. Discontinue Xarelto (5) Anemia Qualifiers: Anemia type: unspecified type Qualified Code(s): D64.9 - Anemia, unspecified Is this a current diagnosis for this admission?: Yes Plan: Stable (6) HTN (hypertension) Qualifiers: Hypertension type: essential hypertension Qualified Code(s): I10 - Essential (primary) hypertension Is this a current diagnosis for this admission?: Yes Plan: Add lisinopril and Toprol to Norvasc (7) Hyperkalemia Is this a current diagnosis for this admission?: Yes Plan: Restart lisinopril and follow up response (8) Diabetes Qualifiers: Diabetes mellitus type: type 2 Diabetes mellitus complication status: with other specified complication Diabetes mellitus buttermaker continuous churn insulin use: without buttermaker continuous churn use Qualified Code(s): E11.69 - Type 2 diabetes mellitus with other specified complication Is this a current diagnosis for this admission?: Yes Plan: Stable - Time Time Spent with patient: 15-24 minutes Medications reviewed and adjusted accordingly: Yes Anticipated discharge: Home Within: within 24 hours - Inpatient Certification Based on my medical assessment, after consideration of the patient's comorbidities, presenting symptoms, or acuity I expect that the services needed warrant INPATIENT care.: Yes I certify that my determination is in accordance with my understanding of Medicare's requirements for reasonable and necessary INPATIENT services [42 CFR 412.3e].: Yes Medical Necessity: Need Close Monitoring Due to Risk of Patient Decompensation, Need For Continuous Telemetry Monitoring
[2017-04-20] MEDS ORDERED: LISINOPRIL 10 MG TABLET PO SCH (18:00)
[2017-04-20] MEDS ORDERED: FUROSEMIDE 20 MG TABLET PO SCH (18:00)
[2017-04-20] MEDS: ZOLPIDEM TARTRATE 5 MG TABLET PO PRN (22:06)
[2017-04-20] MEDS: ONDANSETRON HCL INJ/PF 4 MG/2 ML SDV IV PRN (22:09)
[2017-04-21] MEDS: MORPHINE SULFATE 10 MG/ML INJ IV PRN (03:18)
[2017-04-21] MEDS: IPRATROPIUM/ALBUTEROL 0.5-2.5 MG/3 ML AMPUL NEB SCH (08:22)
[2017-04-21 08:47] VITALS: BP 126/50
--- NOTE | 2017-04-21 14:37 | PDOC DISCHARGE SUMMARY ---
General - Admit/Disc Date/PCP Admission Date/Primary Care Provider: 04/17/17 14:52 JORDYN STEEN, Discharge Date: 04/21/17 - Discharge Diagnosis (1) Acute on chronic systolic CHF (congestive heart failure) Is this a current diagnosis for this admission?: Yes (2) Acute and chronic respiratory failure ([id number]) Is this a current diagnosis for this admission?: Yes (3) COPD (chronic obstructive pulmonary disease) Is this a current diagnosis for this admission?: Yes (4) Thrombocytopenia Is this a current diagnosis for this admission?: Yes (5) Anemia Is this a current diagnosis for this admission?: Yes (6) HTN (hypertension) Is this a current diagnosis for this admission?: Yes (7) Hyperkalemia Is this a current diagnosis for this admission?: Yes (8) Diabetes Is this a current diagnosis for this admission?: Yes (9) Anemia Is this a current diagnosis for this admission?: Yes - Additional Information Resuscitation Status: Full Code Discharge Diet: Cardiac, Diabetic Discharge Activity: Activity As Tolerated, Balance Activity w/Rest, Weigh Daily Home Medications: Alprazolam [Xanax 0.25 mg Tablet] 0.25 mg PO BIDP PRN 04/17/17 Amlodipine Besylate [Norvasc 10 mg Tablet] 10 mg PO DAILY 04/17/17 Benazepril HCl [Lotensin 10 mg Tablet] 10 mg PO DAILY 04/17/17 Carvedilol [Coreg 6.25 mg Tablet] 6.25 mg PO Q12 04/17/17 Citalopram Hydrobromide [Celexa 20 mg Tablet] 20 mg PO DAILY 04/17/17 Esomeprazole Magnesium [Nexium] 40 mg PO DAILY 04/17/17 Folic Acid [Folvite 1 mg Tablet] 1 mg PO DAILY 04/17/17 Furosemide [Lasix 40 mg Tablet] 40 mg PO DAILY 04/17/17 Ipratropium/Albuterol Sulfate [Combivent Respimat 4 gm Mdi] 1 puff IH QID Ipratropium/Albuterol Sulfate [Duoneb 3 ml Ampul] 1 vial NEB QID 04/17/17 Isosorbide Dinitrate [Isordil Titradose 20 mg Tablet] 20 mg PO Q12 04/17/17 Latanoprost [Xalatan 0.005% Oph Soln 2.5 ml] 1 drop OU QHS 04/17/17 Levothyroxine Sodium [Synthroid] 0.175 mg PO DAILY 04/17/17 Lubiprostone [Amitiza 24 Mcg Capsule] 24 mcg PO DAILY 04/17/17 Mirtazapine [Remeron] 15 mg PO Q12 04/17/17 Zolpidem Tartrate [Ambien] 10 mg PO QHS 04/17/17 History of Present Illness History of Present Illness: ROSALVA DOLL is a 66 year old female that has been having shortness of breath for a couple of days but got worse today. History taking is difficult since patient states that she was given a medication in emergency room and that needed Benadryl. Patient also related that she had chest pain but at the present time was gone. She uses O2 at home. Pain was relieved with morphine. Accordingly patient was not keeping good saturations and was placed on a facemask. Hospitalist service was contacted for further management and prompted to admit Hospital Course Hospital Course: Patient was admitted under the hospitalist service. While awaiting to be transferred to the medical floor, her respiratory status got progressively worse and she was intubated while in emergency room. Patient then was transferred to intensive care unit. Dr. Spence was consulted and patient she was extubated April 18 . Culprit of presentation related to acute on chronic systolic congestive heart failure. Patient responded well to diuresis. She has been educated about fluid restriction. Turns that somehow patient was under the understanding that she was supposed to drink around a gallon of water a day. She was advised as to weigh herself on a daily basis and if weight increased to notify her primary care provider immediately. She was also encouraged as not to drink more than 1500 mils per day. Patient suffers from cirrhosis and hypersplenism and blood counts were monitored closely with no further decompensation. Since patient suffers from COPD she was treated initially for the possibility of COPD exacerbation but this was ruled out. All electrolyte abnormalities were trended and corrected at the time of discharge. Diabetes remained stable during her hospital stay. Since patient had achieved maximum benefit of hospitalization stay and was also expressed that was ready for discharge prompted to discharge under stable condition Physical Exam Vital Signs: Temp Pulse Resp BP Pulse Ox 98.0 F 77 19 126/50 H 94 04/21/17 04:00 04/21/17 04:00 04/21/17 04:00 04/21/17 04:00 04/21/17 04:00 Intake & Output 04/20/17 04/21/17 04/22/17 06:59 06:59 06:59 Intake Total 1677 1070 Output Total 4477 3150 Balance -2798 -2080 Weight 78.2 kg 98 kg General appearance: PRESENT: no acute distress, cooperative, obese Head exam: PRESENT: atraumatic, normocephalic Eye exam: PRESENT: EOMI, PERRLA Ear exam: PRESENT: normal external ear exam Mouth exam: PRESENT: moist, neck supple Neck exam: PRESENT: full ROM. ABSENT: JVD, lymphadenopathy, tenderness, thyromegaly Respiratory exam: PRESENT: crackles - Adequate movement of air bilaterally with soft basilar crackles Cardiovascular exam: PRESENT: RRR, systolic murmur. ABSENT: diastolic murmur Vascular exam: PRESENT: normal capillary refill GI/Abdominal exam: PRESENT: normal bowel sounds, soft. ABSENT: tenderness Extremities exam: PRESENT: full ROM. ABSENT: clubbing, joint swelling, pedal edema Musculoskeletal exam: PRESENT: ambulatory, full ROM Neurological exam: PRESENT: alert, awake, oriented to person, oriented to place , oriented to time, oriented to situation, CN II-XII grossly intact Psychiatric exam: PRESENT: appropriate affect, normal mood Skin exam: PRESENT: intact, normal color Results Laboratory Results: 04/20/17 05:02 04/20/17 05:02 04/17/17 04/17/17 16:37 20:43 Troponin I < 0.012 0.016 Impressions: Chest X-Ray 04/20/17 06:00 IMPRESSION: NO CHANGE IN APPEARANCE OF THE CHEST. Plan Discharge Plan: Discharge home Time Spent: Less than 30 Minutes
== END 2017-04-21 10:20 | disposition home or self-care (01) | DRG 208 ==
LOC: ER 07:33 → EH 14:52 → ICU 20:27 → 4S 04-19 11:06
PROVIDERS: ADMIT Emergency Medicine; ATTEND Emergency Medicine
PROC: 5A1935Z Respiratory Ventilation, Less than 24 Consecutive Hours (ICD-10-PCS; principal; 2017-04-17)
PROC: 0BH17EZ Insertion of Endotracheal Airway into Trachea, Via Natural or Artificial Opening (ICD-10-PCS; 2017-04-17)
PROC: 3E0F73Z Introduction of Anti-inflammatory into Respiratory Tract, Via Natural or Artificial Opening (ICD-10-PCS; 2017-04-17)
PROC: 5A09357 Assistance with Respiratory Ventilation, Less than 24 Consecutive Hours, Continuous Positive Airway Pressure (ICD-10-PCS; 2017-04-18)
DX: J96.21 Acute and chronic respiratory failure with hypoxia (principal); I50.23 Acute on chronic systolic (congestive) heart failure; I13.0 Hypertensive heart and chronic kidney disease with heart failure and stage 1 through stage 4 chronic kidney disease, or unspecified chronic kidney disease; D61.818 Other pancytopenia; J44.9 Chronic obstructive pulmonary disease, unspecified; D63.1 Anemia in chronic kidney disease; E87.5 Hyperkalemia; E11.22 Type 2 diabetes mellitus with diabetic chronic kidney disease; K74.60 Unspecified cirrhosis of liver; D73.1 Hypersplenism; I25.10 Atherosclerotic heart disease of native coronary artery without angina pectoris; E78.5 Hyperlipidemia, unspecified; E03.9 Hypothyroidism, unspecified; K21.9 Gastro-esophageal reflux disease without esophagitis; N18.9 Chronic kidney disease, unspecified; M19.90 Unspecified osteoarthritis, unspecified site; D69.59 Other secondary thrombocytopenia; E11.69 Type 2 diabetes mellitus with other specified complication; F32.9 Major depressive disorder, single episode, unspecified; Z78.1 Physical restraint status; I25.2 Old myocardial infarction; Z99.81 Dependence on supplemental oxygen; Z79.899 Other long term (current) drug therapy; Z95.5 Presence of coronary angioplasty implant and graft; Z90.49 Acquired absence of other specified parts of digestive tract; Z87.891 Personal history of nicotine dependence; Z88.6 Allergy status to analgesic agent; Z88.4 Allergy status to anesthetic agent; Z83.6 Family history of other diseases of the respiratory system; Z82.49 Family history of ischemic heart disease and other diseases of the circulatory system
CPT/HCPCS: 36415; 36600; 71045; 80048; 80053; 82550; 82553; 82607; 82728; 82746; 82803; 82962; 83540; 83550; 83605; 83735; 83880; 84466; 84478; 84484; 85025; 85045; 86022; 93005; 93010; 93306; 94002; 94003; 94640; 94660; 94799; 96365; 96375; 96376; 99291; J0330; J1200; J1940; J1956; J2270; J2405; J2543; J2704; J2920; J7030; J7620

== ENCOUNTER → 2017-06-18 | Outpatient (CLI) | payer MEDICARE ==
[2017-06-18 09:49] LABS: APPEARANCE,URINE CLEAR; BILIRUBIN,URINE NEGATIVE (NEGATIVE); COLOR,URINE YELLOW; GLUCOSE, URINE NEGATIVE (NEGATIVE); KETONES,URINE NEGATIVE (NEGATIVE); LEUKOCYTE ESTERASE,URINE TRACE (NEGATIVE); NITRITE,URINE NEGATIVE (NEGATIVE); PROTEIN,URINE 30 mg/dL (NEGATIVE); URINE SPECIFIC GRAVITY 1.016; UROBILINOGEN,URINE NEGATIVE mg/dL (<2.0)
[2017-06-18 10:05] LABS: ABSOLUTE EOSINOPHILS # (AUTO) 0.1 10^3/uL (0.0-0.6); ABSOLUTE LYMPHOCYTES (AUTO) 0.5 10^3/uL (0.5-4.7); ABSOLUTE MONOCYTES (AUTO) 0.2 10^3/uL (0.1-1.4); ABSOLUTE NEUT (AUTO) 2.1 10^3/uL (1.7-8.2); BASOPHILS % (AUTO) 0.8 % (0-2); EOSINOPHILS % (AUTO) 4.3 % (0-6); HEMATOCRIT 36.2 % (36.0-47.0); HEMOGLOBIN 11.5 g/dL (12.0-15.5); LYMPHOCYTES % (AUTO) 17.4 % (13-45); MEAN CORPUSCULAR HEMOGLOBIN 29.2 pg (27.0-33.4); MEAN CORPUSCULAR HGB CONC 31.8 g/dL (32.0-36.0); MEAN CORPUSCULAR VOLUME 92 fl (80-97); MONOCYTES % (AUTO) 8.3 % (3-13); RED BLOOD COUNT 3.94 10^6/uL (3.72-5.28); SEGMENTED NEUTROPHILS % (AUTO) 69.2 % (42-78); TOTAL CELLS COUNTED % (AUTO) 100 %
[2017-06-18 10:10] LABS: PLATELET COUNT 72 10^3/uL (150-450)
[2017-06-18 10:13] LABS: ALANINE AMINOTRANSFERASE 40 U/L (9-52); ALKALINE PHOSPHATASE 119 U/L (38-126); ANION GAP 6 (5-19); ASPARTATE AMINO TRANSFERASE 47 U/L (14-36); BILIRUBIN,DIRECT 0.6 mg/dL (0.0-0.4); BILIRUBIN,TOTAL 0.7 mg/dL (0.2-1.3); BLOOD UREA NITROGEN 40 mg/dL (7-20); CALCIUM 9.3 mg/dL (8.4-10.2); CARBON DIOXIDE 33 mmol/L (22-30); CHLORIDE 108 mmol/L (98-107); GLUCOSE 84 mg/dL (75-110); IRON(TIBC) 71.5 ug/dL (37-170); POTASSIUM 4.6 mmol/L (3.6-5.0); SODIUM 147.3 mmol/L (137-145); TOTAL PROTEIN 8.2 g/dL (6.3-8.2)
[2017-06-19 16:40] LABS: A/G RATIO 0.7 (0.7-1.7); ALBUMIN 2 3.2 g/dL (2.9-4.4); ALPHA-2-GLOBULIN 2 0.9 g/dL (0.4-1.0); BETA GLOBULINS 1.5 g/dL (0.7-1.3); GAMMA GLOBULIN 1.8 g/dL (0.4-1.8); GLOBULIN TOTAL 4.4 g/dL (2.2-3.9); MONOCLONAL SPIKE Not Observed g/dL (Not Observed); PROTEIN TOTAL SERUM 7.6 g/dL (6.0-8.5)
== END ==
LOC: OD 08:35
PROVIDERS: ATTEND Internal Medicine Nephrology
DX: I12.9 Hypertensive chronic kidney disease with stage 1 through stage 4 chronic kidney disease, or unspecified chronic kidney disease (principal); N18.3 Chronic kidney disease, stage 3 (moderate); I50.9 Heart failure, unspecified; D64.9 Anemia, unspecified
CPT/HCPCS: 36415; 80053; 81001; 82728; 83540; 83550; 83735; 84165; 84443; 85025; 85610

== ENCOUNTER 2017-08-17 15:13 | Inpatient (IN) | payer MEDICARE ==
[2017-08-17] MEDS ORDERED: TRAMADOL HCL 50 MG TABLET PO ONE (16:13)
--- NOTE | 2017-08-17 16:15 | ER Document Report ---
ED Medical Screen (RME) - General Chief Complaint: Shortness Of Breath Stated Complaint: SHORTNESS OF BREATH Time Seen by Provider: 08/17/17 16:02 Mode of Arrival: Ambulatory Information source: Patient Notes: 66-year-old female history of CHF presents with complaints of generalized weakness cough shortness breath swelling in lower extremities patient sent in by Dr. Sanabria's office I have greeted and performed a rapid initial assessment of this patient. A comprehensive ED assessment and evaluation of the patient, analysis of test results and completion of the medical decision making process will be conducted by additional ED providers. PHYSICAL EXAMINATION: GENERAL: Chronically ill-appearing female HEAD: Atraumatic, normocephalic. EYES: Pupils equal round extraocular movements intact, conjunctiva are normal. ENT: Nares patent NECK: Normal range of motion LUNGS: Crackles at the bases on baseline oxygen Musculoskeletal: Normal range of motion NEUROLOGICAL: Normal speech, normal gait. PSYCH: Normal mood, normal affect. SKIN: Pale TRAVEL OUTSIDE OF THE [place] IN LAST 30 DAYS: No - Related Data Allergies/Adverse Reactions: oxycodone Allergy (Severe, Verified 08/17/17 15:15) ended up in hospital with kidney failure codeine Allergy (Verified 08/17/17 15:15) midazolam HCl [From Versed] Allergy (Verified 08/17/17 15:15) ON VENT X 19 DAYS hydrocodone [Hydrocodone] Adverse Reaction (Mild, Verified 08/17/17 15:15) GI upset Past Medical History - Social History Chew tobacco use (# tins/day): No Frequency of alcohol use: None Drug Abuse: None - Past Medical History Cardiac Medical History: Reports: Hx Congestive Heart Failure, Hx Coronary Artery Disease, Hx Heart Attack - 1995, Hx Hypercholesterolemia, Hx Hypertension , Hx Heart Murmur Pulmonary Medical History: Reports: Hx Asthma, Hx Bronchitis, Hx COPD Denies: Hx Pneumonia Neurological Medical History: Denies: Hx Cerebrovascular Accident, Hx Seizures Endocrine Medical History: Reports: Hx Diabetes Mellitus Type 2, Hx Hypothyroidism Renal/ Medical History: Reports: Hx Renal Insufficiency. Denies: Hx Peritoneal Dialysis GI Medical History: Reports: Hx Cirrhosis, Hx Gastroesophageal Reflux Disease. Denies: Hx Hepatitis, Hx Hiatal Hernia, Hx Ulcer Musculoskeltal Medical History: Reports Hx Arthritis Psychiatric Medical History: Reports: Hx Depression - xanax, celaxa Infectious Medical History: Denies: Hx Hepatitis Past Surgical History: Reports: Hx Cardiac Catheterization, Hx Section - x3, Hx Cholecystectomy, Hx Coronary Stent - x12. Denies: Hx Mastectomy, Hx Open Heart Surgery, Hx Pacemaker - Immunizations Hx Diphtheria, Pertussis, Tetanus Vaccination: No History of Influenza Vaccine for 12/2016 - 05/2017 Season: Yes Influenza Administration Date for 12/2016 - 05/2017 Season: 01/04/17 Physical Exam - Vital signs Vitals: Temp Pulse Resp BP Pulse Ox 97.6 F 88 18 136/63 H 100 08/17/17 15:19 08/17/17 15:19 08/17/17 15:19 08/17/17 15:19 08/17/17 15:19 Course - Vital Signs Vital signs: Temp Pulse Resp BP Pulse Ox 97.6 F 88 18 136/63 H 100 08/17/17 15:19 08/17/17 15:19 08/17/17 15:19 08/17/17 15:19 08/17/17 15:19
[2017-08-17] MEDS ORDERED: KETOROLAC TROMETHAMINE INJ/PF 30 MG/1 ML SDV IV ONE (16:53)
[2017-08-17 16:54] LABS: VENOUS BLOOD BASE EXCESS 0.3 mmol/L; VENOUS BLOOD HCO3 28.5 mmol/L (20-32); VENOUS BLOOD PCO2 62.1 mmHg (35-63); VENOUS BLOOD PH 7.28 (7.30-7.42)
[2017-08-17] MEDS ORDERED: FUROSEMIDE INJ/PF 40 MG/4 ML SDV IV ONE (16:54)
--- NOTE | 2017-08-17 16:57 | ER Document Report ---
ED General - General Chief Complaint: Shortness Of Breath Stated Complaint: SHORTNESS OF BREATH Time Seen by Provider: 08/17/17 16:02 Mode of Arrival: Ambulatory TRAVEL OUTSIDE OF THE [place] IN LAST 30 DAYS: No - HPI Notes: Patient is a 66-year-old female with a history of congestive heart failure, COPD , diabetes type 2, chronic pain, COPD who presents to the ED complaining of swelling in her feet, legs, and occasional cough with shortness of breath 2-3 days. Patient believes that she is having another exacerbation of her heart failure. Patient states that this time she is breathing well on her 4 L O2 via nasal cannula which she is on at home as well. Patient states that she is currently on Lasix 40 mg once daily at home. Patient states that she is still eating and drinking without difficulties, but does have a decreased p.o. intake. She is still urinating and having normal bowel movements. Pt did have to be intubated in the past. Pt reports 1 UT in 1995. Denies any headache, fever, neck pain, URI, sore throat, chest pain, palpitations, syncope, abdominal pain, nausea/vomiting/diarrhea, urinary retention, dysuria, hematuria , or rash. - Related Data Allergies/Adverse Reactions: oxycodone Allergy (Severe, Verified 08/17/17 15:15) ended up in hospital with kidney failure codeine Allergy (Verified 08/17/17 15:15) midazolam HCl [From Versed] Allergy (Verified 08/17/17 15:15) ON VENT X 19 DAYS hydrocodone [Hydrocodone] Adverse Reaction (Mild, Verified 08/17/17 15:15) GI upset Past Medical History - General Information source: Patient - Social History Smoking Status: Former Smoker Chew tobacco use (# tins/day): No Frequency of alcohol use: None Drug Abuse: None Family History: CAD, COPD Patient has suicidal ideation: No Patient has homicidal ideation: No - Past Medical History Cardiac Medical History: Reports: Hx Congestive Heart Failure, Hx Coronary Artery Disease, Hx Heart Attack - 1995, Hx Hypercholesterolemia, Hx Hypertension , Hx Heart Murmur Pulmonary Medical History: Reports: Hx Asthma, Hx Bronchitis, Hx COPD Denies: Hx Pneumonia Neurological Medical History: Denies: Hx Cerebrovascular Accident, Hx Seizures Endocrine Medical History: Reports: Hx Diabetes Mellitus Type 2, Hx Hypothyroidism Renal/ Medical History: Reports: Hx Renal Insufficiency. Denies: Hx Peritoneal Dialysis GI Medical History: Reports: Hx Cirrhosis, Hx Gastroesophageal Reflux Disease. Denies: Hx Hepatitis, Hx Hiatal Hernia, Hx Ulcer Musculoskeltal Medical History: Reports Hx Arthritis Psychiatric Medical History: Reports: Hx Depression - xanax, celaxa Infectious Medical History: Denies: Hx Hepatitis Past Surgical History: Reports: Hx Cardiac Catheterization, Hx Section - x3, Hx Cholecystectomy, Hx Coronary Stent - x12. Denies: Hx Mastectomy, Hx Open Heart Surgery, Hx Pacemaker - Immunizations Hx Diphtheria, Pertussis, Tetanus Vaccination: No Hx Pneumococcal Vaccination: 12/24/14 Review of Systems - Review of Systems -: Yes All other systems reviewed and negative Physical Exam - Vital signs Vitals: Temp Pulse Resp BP Pulse Ox 97.6 F 88 18 136/63 H 100 08/17/17 15:19 08/17/17 15:19 08/17/17 15:19 08/17/17 15:19 08/17/17 15:19 - Notes Notes: PHYSICAL EXAMINATION: GENERAL: Well-appearing, well-nourished and in no acute distress. HEAD: Atraumatic, normocephalic. EYES: Pupils equal round and reactive to light, extraocular movements intact, sclera anicteric, conjunctiva are normal. ENT: Nares patent and without discharge. oropharynx clear without exudates. No tonsilar hypertrophy or erythema. Moist mucous membranes. NECK: Normal range of motion, supple without lymphadenopathy LUNGS: bibasilar crackles heard. no retractions. HEART: Regular rate and rhythm without murmurs, rubs, gallops. ABDOMEN: Soft, nontender, nondistended abdomen. No guarding, no rebound. No masses appreciated. Normal bowel sounds present. No CVA tenderness bilaterally. Musculoskeletal: FROM to passive/active. Strength 5+/5. Extremities: 2-3+ pitting edema to the feet, ankles, lower legs b/l. 2+ pitting edema to the knees and trace to 1+ to the mid thighs b/l. Peripheral pulses 1+. Capillary refill less than 3 seconds. NEUROLOGICAL: Cranial nerves grossly intact. Normal speech, normal gait. Normal sensory, motor exams PSYCH: Normal mood, normal affect. SKIN: Warm, Dry, normal turgor, no rashes or lesions noted. Course - Re-evaluation Re-evalutation: 08/17/17 18:04 Patient is an afebrile, well-hydrated, 66-year-old female who presents to the ED with acute on chronic congestive heart failure and acute kidney injury. Patient's oxygen saturation was maintaining at 92-93% on 4 L via nasal cannula until he tried to put a urinary catheter in and when they did her oxygen dropped into the 70s and did not rise above 85% on her 4 L so BiPAP was ordered. BiPAP was started at 12/5 at 45%. Patient states that she is feeling much better and is now oxygenating at 96%. She is a BNP of 16,100 which is significantly higher than her previous high of 3000 and change. Spoke with Dr. Montoya, hospitalist, who accepted patient for admission to [facility]. Pt in agreement with plan. - Vital Signs Vital signs: Temp Pulse Resp BP Pulse Ox 97.6 F 88 18 136/63 H 100 08/17/17 15:19 08/17/17 15:19 08/17/17 15:19 08/17/17 15:19 08/17/17 15:19 - Laboratory Result Diagrams: 08/17/17 16:36 08/17/17 16:36 Laboratory results interpreted by me: 08/17/17 08/17/17 08/17/17 16:36 16:36 16:36 RDW 19.4 H Plt Count 74 L PT 15.9 H VBG pH BUN Creatinine Est GFR ( Amer) Est GFR (Non-Af Amer) NT-Pro-B Natriuret Pep 45216 H Total Protein Urine Protein 08/17/17 08/17/17 08/17/17 16:36 16:36 16:36 RDW Plt Count PT VBG pH 7.28 L BUN 84 H Creatinine 2.12 H Est GFR ( Amer) 28 L Est GFR (Non-Af Amer) 23 L NT-Pro-B Natriuret Pep Total Protein 8.7 H Urine Protein 30 H Discharge - Discharge Clinical Impression: CHF (congestive heart failure) Qualifiers: Heart failure type: unspecified Heart failure chronicity: acute on chronic Qualified Code(s): I50.9 - Heart failure, unspecified Condition: Stable Disposition: ADMITTED INPATIENT Admitting Provider: Hospitalist - Dr. Montoya Unit Admitted: IMCU Referrals: JORDYN STEEN DO [Primary Care Provider] - Follow up as needed
[2017-08-17 17:00] LABS: ABSOLUTE EOSINOPHILS # (AUTO) 0.1 10^3/uL (0.0-0.6); ABSOLUTE LYMPHOCYTES (AUTO) 0.6 10^3/uL (0.5-4.7); ABSOLUTE MONOCYTES (AUTO) 0.3 10^3/uL (0.1-1.4); ABSOLUTE NEUT (AUTO) 3.2 10^3/uL (1.7-8.2); BASOPHILS % (AUTO) 0.7 % (0-2); EOSINOPHILS % (AUTO) 3.5 % (0-6); HEMATOCRIT 37.6 % (36.0-47.0); HEMOGLOBIN 12.1 g/dL (12.0-15.5); LYMPHOCYTES % (AUTO) 13.1 % (13-45); MEAN CORPUSCULAR HGB CONC 32.2 g/dL (32.0-36.0); MEAN CORPUSCULAR VOLUME 96 fl (80-97); MONOCYTES % (AUTO) 7.7 % (3-13); RED CELL DISTRIBUTION WIDTH 19.4 % (11.5-14.0); TOTAL CELLS COUNTED % (AUTO) 100 %; WHITE BLOOD COUNT 4.2 10^3/uL (4.0-10.5)
[2017-08-17 17:01] LABS: PLATELET COUNT 74 10^3/uL (150-450)
[2017-08-17 17:02] LABS: APPEARANCE,URINE CLEAR; BILIRUBIN,URINE NEGATIVE (NEGATIVE); COLOR,URINE YELLOW; GLUCOSE, URINE NEGATIVE (NEGATIVE); INTERNATIONAL RATION (INR) 1.21; KETONES,URINE NEGATIVE (NEGATIVE); LEUKOCYTE ESTERASE,URINE NEGATIVE (NEGATIVE); NITRITE,URINE NEGATIVE (NEGATIVE); PROTEIN,URINE 30 mg/dL (NEGATIVE); PROTHROMBIN TIME 15.9 SEC (11.4-15.4); URINE SPECIFIC GRAVITY 1.013; UROBILINOGEN,URINE NEGATIVE mg/dL (<2.0)
[2017-08-17 17:06] LABS: ALANINE AMINOTRANSFERASE 27 U/L (9-52); ALKALINE PHOSPHATASE 100 U/L (38-126); ANION GAP 10 (5-19); ASPARTATE AMINO TRANSFERASE 35 U/L (14-36); BILIRUBIN,DIRECT 0.4 mg/dL (0.0-0.4); BILIRUBIN,TOTAL 0.6 mg/dL (0.2-1.3); BLOOD UREA NITROGEN 84 mg/dL (7-20); CALCIUM 9.1 mg/dL (8.4-10.2); CARBON DIOXIDE 29 mmol/L (22-30); CHLORIDE 106 mmol/L (98-107); GLUCOSE 106 mg/dL (75-110); SODIUM 144.8 mmol/L (137-145); TOTAL PROTEIN 8.7 g/dL (6.3-8.2)
--- NOTE | 2017-08-17 17:25 | RADIOLOGY REPORT (SQ) ---
EXAM DESCRIPTION: CHEST 2 VIEWS COMPLETED DATE/TIME: 08/17/2017 5:09 pm REASON FOR STUDY: sob COMPARISON: 03/05/2016 EXAM PARAMETERS: NUMBER OF VIEWS: two views TECHNIQUE: Digital Frontal and Lateral radiographic views of the chest acquired. RADIATION DOSE: NA LIMITATIONS: none FINDINGS: LUNGS AND PLEURA: Marked chronic interstitial lung disease. MEDIASTINUM AND HILAR STRUCTURES: No masses or contour abnormalities. HEART AND VASCULAR STRUCTURES: Cardiomegaly with pulmonary vascular congestion. Cannot exclude mild pulmonary edema. BONES: No acute findings. HARDWARE: None in the chest. OTHER: No other significant finding. IMPRESSION: Cardiomegaly with pulmonary vascular congestion. Cannot exclude mild pulmonary edema. Chronic interstitial lung disease. TECHNICAL DOCUMENTATION: JOB ID: [id number] [employer]- All Rights Reserved Reading location - IP/workstation name: [email or web address]
--- NOTE | 2017-08-17 18:21 | EKG REPORT ---
SEVERITY:- ABNORMAL ECG - SINUS RHYTHM PROBABLE LEFT ATRIAL ABNORMALITY RIGHT BUNDLE BRANCH BLOCK : Confirmed by: Chris Lynch MD 17-Aug-2017 18:20:36
--- NOTE | 2017-08-17 18:39 | PDOC H&P ---
History of Present Illness Admission Date/PCP: 08/17/17 18:12 JORDYN STEEN DO Patient complains of: Short of breath History of Present Illness: ROSALVA DOLL is a 66 year old female with multiple medical problems who presents to the ER with 3 days of progressive shortness of breath, lower extremity swelling, inability to lie flat. No changes in her appetite. She denies any chest pain, fevers, chills. States she has been taking her medications as directed Past Medical History Cardiac Medical History: Reports: Congestive Heart Failure, Coronary Artery Disease, Myocardial Infarction - 1995, Hyperlipidema, Hypertension, Heart Murmur Pulmonary Medical History: Reports: Asthma, Bronchitis, Chronic Obstructive Pulmonary Disease (COPD) Denies: Pneumonia Neurological Medical History: Denies: Seizures Endocrine Medical History: Reports: Diabetes Mellitus Type 2, Hypothyroidism GI Medical History: Reports: Cirrhosis, Gastroesophageal Reflux Disease Denies: Hepatitis, Hiatal Hernia Musculoskeltal Medical History: Reports: Arthritis Psychiatric Medical History: Reports: Depression - xanax, celaxa Hematology: Reports: Anemia, Other - Thrombocytopenia Denies: Sickle Cell Disease Past Surgical History Past Surgical History: Reports: Cardiac Catheterization, Section - x3, Cholecystectomy, Coronary Stent - x12 Denies: Amputation, Mastectomy, Pacemaker Social History Information Source: Patient, [facility] Records Smoking Status: Former Smoker Frequency of Alcohol Use: None Hx Recreational Drug Use: No Drugs: None Hx Prescription Drug Abuse: No - Advance Directive Resuscitation Status: Full Code Surrogate healthcare decision maker:: Her son Family History Family History: CAD, COPD Parental Family History Reviewed: Yes Children Family History Reviewed: No Sibling(s) Family History Reviewed.: No Medication/Allergy Home Medications: Alprazolam [Xanax 0.25 mg Tablet] 0.25 mg PO BIDP PRN 04/17/17 Amlodipine Besylate [Norvasc 10 mg Tablet] 10 mg PO DAILY 04/17/17 Benazepril HCl [Lotensin 10 mg Tablet] 10 mg PO DAILY 04/17/17 Carvedilol [Coreg 6.25 mg Tablet] 6.25 mg PO Q12 04/17/17 Citalopram Hydrobromide [Celexa 20 mg Tablet] 15 mg PO DAILY 04/17/17 Folic Acid [Folvite 1 mg Tablet] 1 mg PO DAILY 04/17/17 Furosemide [Lasix 40 mg Tablet] 40 mg PO DAILY 04/17/17 Ipratropium/Albuterol Sulfate [Combivent Respimat 4 gm Mdi] 1 puff IH QID Ipratropium/Albuterol Sulfate [Duoneb 3 ml Ampul] 1 vial NEB QID 04/17/17 Isosorbide Dinitrate [Isordil Titradose 20 mg Tablet] 20 mg PO Q12 04/17/17 Latanoprost [Xalatan 0.005% Oph Soln 2.5 ml] 1 drop OU QHS 04/17/17 Levothyroxine Sodium [Synthroid] 0.175 mg PO DAILY 04/17/17 Mirtazapine [Remeron] 15 mg PO BID 04/17/17 Zolpidem Tartrate [Ambien] 10 mg PO QHS 04/17/17 Acetaminophen [Tylenol Arthritis 650 mg Tablet] 650 mg PO Q6 08/17/17 Bimatoprost [Lumigan 0.01% Oph Soln 2.5 ml/Bottle] 1 drop OU DAILY 08/17/17 Iron Polysaccharide Complex [Ferrex 150] 150 mg PO BID 08/17/17 Omeprazole 20 mg PO DAILY 08/17/17 Allergies/Adverse Reactions: oxycodone Allergy (Severe, Verified 08/17/17 15:15) ended up in hospital with kidney failure codeine Allergy (Verified 08/17/17 15:15) midazolam HCl [From Versed] Allergy (Verified 08/17/17 15:15) ON VENT X 19 DAYS hydrocodone [Hydrocodone] Adverse Reaction (Mild, Verified 08/17/17 15:15) GI upset Review of Systems All systems: reviewed and no additional remarkable complaints except as stated Physical Exam Vital Signs: Temp Pulse Resp BP Pulse Ox 97.6 F 88 29 H 136/63 H 96 08/17/17 15:19 08/17/17 15:19 08/17/17 18:00 08/17/17 15:19 08/17/17 18:00 Results Impressions: Chest X-Ray 08/17/17 16:10 IMPRESSION: Cardiomegaly with pulmonary vascular congestion. Cannot exclude mild pulmonary edema. Chronic interstitial lung disease. Assessment & Plan - Diagnosis (1) Acute on chronic diastolic (congestive) heart failure Is this a current diagnosis for this admission?: Yes Plan: Her last echocardiogram was in March of this year and showed grossly preserved left ventricular systolic function, elevated right heart pressures. I will put her on a Lasix drip overnight, continue her home beta-sudhir and GLORIA inhibitor, continue the BiPAP at least overnight for afterload reduction. Follow her labs closely (2) COPD with exacerbation Is this a current diagnosis for this admission?: Yes Plan: She is on 4 L per nasal cannula continuously at baseline and has had frequent exacerbations. Difficult to distinguish between an exacerbation causing her shortness of breath and purely diastolic heart failure. I will treat her empirically for an exacerbation given that she has very little lung reserve. (3) Obesity Qualifiers: Body mass index: BMI 33.0-33.9 Is this a current diagnosis for this admission?: Yes (4) ARF (acute renal failure) Is this a current diagnosis for this admission?: Yes Plan: Presumably due to cardiorenal syndrome. Continue to monitor closely with diuresis. (5) Acute and chronic respiratory failure ([id number]) Qualifiers: Respiratory failure complication: hypoxia Qualified Code(s): J96.21 - Acute and chronic respiratory failure with hypoxia Is this a current diagnosis for this admission?: Yes Plan: Continue BiPAP at least overnight and then as needed, wean oxygen as tolerated. (6) Cirrhosis Qualifiers: Is this a current diagnosis for this admission?: Yes (7) Depression Qualifiers: Is this a current diagnosis for this admission?: Yes Plan: Continue her home medications (8) Essential hypertension Is this a current diagnosis for this admission?: Yes Plan: Continue her home medications other than replacing her Lasix with a Lasix drip (9) Hypersplenism Is this a current diagnosis for this admission?: Yes Plan: Due to cirrhosis (10) Hypothyroid Is this a current diagnosis for this admission?: Yes Plan: Continue home medications. Her TSH was therapeutic in May of this year (11) CAD (coronary artery disease) Qualifiers: Is this a current diagnosis for this admission?: Yes (12) Thrombocytopenia Is this a current diagnosis for this admission?: Yes Plan: Due to hypersplenism
[2017-08-17] MEDS: IPRATROPIUM/ALBUTEROL 0.5-2.5 MG/3 ML AMPUL NEB SCH (19:46)
[2017-08-17] MEDS ORDERED: (PENDING PHARMACY ID) (Zolpidem Tartrate [Ambien] 10 MG) PO SCH (22:00)
[2017-08-17] MEDS: CARVEDILOL 6.25 MG TABLET PO SCH (22:06)
[2017-08-17] MEDS: ZOLPIDEM TARTRATE 5 MG TABLET PO SCH (22:06)
[2017-08-17] MEDS: METHYLPREDNISOLONE INJ 40 MG/1 ML SDV IV SCH (22:06)
[2017-08-17] MEDS: NORMAL SALINE 250 ML with FUROSEMIDE 250 MG IV PRN ×2 (22:07)
[2017-08-17] MEDS: ALPRAZOLAM 0.25 MG TABLET PO PRN (22:09)
[2017-08-17] MEDS: ISOSORBIDE DINITRATE 20 MG TABLET PO SCH (22:16)
[2017-08-17] MEDS: LATANOPROST 0.005% OPH SOLN 2.5 ML OU SCH (22:19)
[2017-08-17] MEDS: HEPARIN SOD (PORCINE) 5,000 UNIT/ML 1 ML SYRINGE SUBCUT SCH (22:21)
[2017-08-18] MEDS: HEPARIN SOD (PORCINE) 5,000 UNIT/ML 1 ML SYRINGE SUBCUT SCH ×3 (05:17→21:35)
[2017-08-18] MEDS: LANSOPRAZOLE 15 MG TAB.RAP.DR PO SCH (05:33)
[2017-08-18] MEDS: LEVOTHYROXINE SODIUM 0.075 MG TABLET PO SCH (05:33)
[2017-08-18] MEDS: LEVOTHYROXINE SODIUM 0.1 MG TABLET PO SCH (05:33)
[2017-08-18 05:43] LABS: ALBUMIN 3.4 g/dL (3.5-5.0); ANION GAP 9 (5-19); BLOOD UREA NITROGEN 85 mg/dL (7-20); CALCIUM 8.7 mg/dL (8.4-10.2); CARBON DIOXIDE 28 mmol/L (22-30); CHLORIDE 109 mmol/L (98-107); GLUCOSE 122 mg/dL (75-110); PHOSPHORUS 5.7 mg/dL (2.5-4.5); POTASSIUM 5.7 mmol/L (3.6-5.0); SODIUM 145.6 mmol/L (137-145)
[2017-08-18] MEDS: IPRATROPIUM/ALBUTEROL 0.5-2.5 MG/3 ML AMPUL NEB SCH ×4 (07:45→20:06)
[2017-08-18] MEDS ORDERED: LEVOTHYROXINE SODIUM 0.175 MG PO SCH (10:00)
[2017-08-18] MEDS ORDERED: (PENDING PHARMACY ID) (Mirtazapine [Remeron] 15 MG) PO SCH (10:00)
[2017-08-18] MEDS ORDERED: MIRTAZAPINE 15 MG TABLET PO SCH (10:00)
[2017-08-18] MEDS ORDERED: CITALOPRAM HYDROBROMIDE 20 MG TABLET PO SCH (10:00)
[2017-08-18] MEDS ORDERED: BIMATOPROST 0.01% OPH SOLN 2.5 ML/BOTTLE OU SCH (10:00)
[2017-08-18] MEDS: IRON POLYSACCHARIDES COMPLEX 150 MG CAPSULE PO SCH ×2 (10:23→17:28)
[2017-08-18] MEDS: FOLIC ACID 1 MG TABLET PO SCH (10:24)
[2017-08-18] MEDS: BENAZEPRIL HCL 10 MG TABLET PO SCH (10:25)
[2017-08-18] MEDS: ISOSORBIDE DINITRATE 20 MG TABLET PO SCH ×2 (10:25→21:38)
[2017-08-18] MEDS: AMLODIPINE BESYLATE 10 MG TABLET PO SCH (10:26)
[2017-08-18] MEDS: CARVEDILOL 6.25 MG TABLET PO SCH ×2 (10:26→21:38)
[2017-08-18] MEDS: DIPHENHYDRAMINE HCL 50 MG/ML VIAL IV PRN ×2 (10:27→17:29)
[2017-08-18] MEDS: METHYLPREDNISOLONE INJ 40 MG/1 ML SDV IV SCH ×2 (10:27→21:39)
--- NOTE | 2017-08-18 12:12 | PDOC PROGRESS REPORT ---
Subjective Progress Note for:: 08/18/17 Subjective:: Sitting in bed comfortable on 4 L per nasal cannula. States she itches and is requesting some Benadryl. Reason For Visit: HEART FAILURE Physical Exam Vital Signs: Temp Pulse Resp BP Pulse Ox 98.0 F 85 18 121/56 L 95 08/18/17 07:24 08/18/17 07:48 08/18/17 07:48 08/18/17 07:24 08/18/17 07:48 Intake & Output 08/17/17 08/18/17 08/19/17 05:59 05:59 05:59 Intake Total 0 207 Output Total 125 650 Balance -125 -443 Weight 170 lb 3.15 oz General appearance: PRESENT: no acute distress Respiratory exam: PRESENT: decreased breath sounds, prolonged expiratory phas, rales - Faint dependent bilateral, unlabored Cardiovascular exam: PRESENT: RRR GI/Abdominal exam: PRESENT: soft Extremities exam: PRESENT: other - About a centimeter of pitting edema to just above her knees bilaterally Musculoskeletal exam: PRESENT: normal inspection Neurological exam: PRESENT: awake - Seems a little sedate Psychiatric exam: PRESENT: appropriate affect Skin exam: PRESENT: warm Results Laboratory Results: 08/18/17 04:08 08/18/17 04:08 Sodium 145.6 H Potassium 5.7 H Chloride 109 H Carbon Dioxide 28 Anion Gap 9 BUN 85 H Creatinine 1.79 H Est GFR ( Amer) 34 L Est GFR (Non-Af Amer) 28 L Glucose 122 H Calcium 8.7 Phosphorus 5.7 H Magnesium 2.2 Albumin 3.4 L 08/18/17 04:08 NT-Pro-B Natriuret Pep 13047 H Impressions: Chest X-Ray 08/17/17 16:10 IMPRESSION: Cardiomegaly with pulmonary vascular congestion. Cannot exclude mild pulmonary edema. Chronic interstitial lung disease. Assessment & Plan - Diagnosis (1) Acute on chronic diastolic (congestive) heart failure Is this a current diagnosis for this admission?: Yes Plan: Her last echocardiogram was in March of this year and showed grossly preserved left ventricular systolic function, elevated right heart pressures. Continue Lasix drip, home beta-sudhir and GLORIA inhibitor, continue the BiPAP as needed afterload reduction. Follow her labs closely (2) Hyperkalemia Is this a current diagnosis for this admission?: Yes Plan: Her potassium was 5 when she came in and has gone up to 5.7 despite Lasix running all night. I will recheck before instituting treatment (3) COPD with exacerbation Is this a current diagnosis for this admission?: Yes Plan: She is on 4 L per nasal cannula continuously at baseline and has had frequent exacerbations. Difficult to distinguish between an exacerbation causing her shortness of breath and purely diastolic heart failure. I will treat her empirically for an exacerbation given that she has very little lung reserve. (4) Obesity Qualifiers: Body mass index: BMI 33.0-33.9 Is this a current diagnosis for this admission?: Yes (5) ARF (acute renal failure) Is this a current diagnosis for this admission?: Yes Plan: Presumably due to cardiorenal syndrome. Improved with diuresis. Continue to monitor closely. (6) Acute and chronic respiratory failure ([id number]) Qualifiers: Respiratory failure complication: hypoxia Qualified Code(s): J96.21 - Acute and chronic respiratory failure with hypoxia Is this a current diagnosis for this admission?: Yes Plan: Continue BiPAP as needed, wean oxygen as tolerated. (7) Cirrhosis Qualifiers: Is this a current diagnosis for this admission?: Yes (8) Depression Qualifiers: Is this a current diagnosis for this admission?: Yes Plan: Continue her home medications. She has a history of polysubstance abuse so we need to monitor medications with abuse potential closely (9) Essential hypertension Is this a current diagnosis for this admission?: Yes Plan: Her blood pressure ran a little low so her Isordil has been held. (10) Hypersplenism Is this a current diagnosis for this admission?: Yes Plan: Due to cirrhosis (11) Hypothyroid Is this a current diagnosis for this admission?: Yes Plan: Continue home medications. Her TSH was therapeutic in May of this year (12) CAD (coronary artery disease) Qualifiers: Is this a current diagnosis for this admission?: Yes (13) Thrombocytopenia Is this a current diagnosis for this admission?: Yes Plan: Due to hypersplenism
[2017-08-18] MEDS: CITALOPRAM HYDROBROMIDE 20 MG TABLET PO SCH (12:25)
[2017-08-18] MEDS ORDERED: DEXTROSE 40% GEL 15 GM TUBE X 2 PO PRN (15:32)
[2017-08-18] MEDS ORDERED: DEXTROSE 40% GEL 15 GM TUBE PO PRN (15:32)
[2017-08-18] MEDS ORDERED: INSULIN LISPRO 100 UNIT/ML 3 ML VIAL SUBCUT PRN (15:32)
[2017-08-18] MEDS ORDERED: GLUCAGON,HUMAN RECOMB 1 MG INJ IM PRN (15:32)
[2017-08-18] MEDS ORDERED: DEXTROSE 50%-WATER SYRINGE 12.5 GM/25 ML DOSE IV PRN (15:32)
[2017-08-18] MEDS ORDERED: DEXTROSE 50%-WATER SYRINGE 25 GM/50 ML DOSE IV PRN (15:32)
[2017-08-18 16:22] LABS: ALBUMIN 3.7 g/dL (3.5-5.0); ANION GAP 10 (5-19); BLOOD UREA NITROGEN 82 mg/dL (7-20); CALCIUM 9.2 mg/dL (8.4-10.2); CARBON DIOXIDE 31 mmol/L (22-30); CHLORIDE 105 mmol/L (98-107); GLUCOSE 115 mg/dL (75-110); PHOSPHORUS 4.7 mg/dL (2.5-4.5); POTASSIUM 5.2 mmol/L (3.6-5.0); SODIUM 146.1 mmol/L (137-145)
[2017-08-18] MEDS: NORMAL SALINE 250 ML with FUROSEMIDE 250 MG IV PRN ×2 (21:40)
[2017-08-18] MEDS: BIMATOPROST 0.01% OPH SOLN 2.5 ML/BOTTLE OU SCH (21:45)
[2017-08-18] MEDS: LATANOPROST 0.005% OPH SOLN 2.5 ML OU SCH (21:52)
[2017-08-18] MEDS: ZOLPIDEM TARTRATE 5 MG TABLET PO SCH (22:57)
[2017-08-19] MEDS: HEPARIN SOD (PORCINE) 5,000 UNIT/ML 1 ML SYRINGE SUBCUT SCH ×3 (05:35→22:25)
[2017-08-19 06:00] LABS: ALBUMIN 3.7 g/dL (3.5-5.0); ANION GAP 13 (5-19); BLOOD UREA NITROGEN 85 mg/dL (7-20); CALCIUM 9.2 mg/dL (8.4-10.2); CARBON DIOXIDE 33 mmol/L (22-30); CHLORIDE 103 mmol/L (98-107); GLUCOSE 131 mg/dL (75-110); POTASSIUM 5.1 mmol/L (3.6-5.0); SODIUM 148.5 mmol/L (137-145)
[2017-08-19] MEDS: LEVOTHYROXINE SODIUM 0.1 MG TABLET PO SCH (06:26)
[2017-08-19] MEDS: LEVOTHYROXINE SODIUM 0.075 MG TABLET PO SCH (06:26)
[2017-08-19] MEDS: LANSOPRAZOLE 15 MG TAB.RAP.DR PO SCH (06:27)
[2017-08-19] MEDS: IPRATROPIUM/ALBUTEROL 0.5-2.5 MG/3 ML AMPUL NEB SCH ×4 (07:42→20:56)
[2017-08-19] MEDS: CARVEDILOL 6.25 MG TABLET PO SCH ×2 (09:46→22:26)
[2017-08-19] MEDS: BENAZEPRIL HCL 10 MG TABLET PO SCH (09:46)
[2017-08-19] MEDS: METHYLPREDNISOLONE INJ 40 MG/1 ML SDV IV SCH ×2 (09:47→22:28)
[2017-08-19] MEDS: ISOSORBIDE DINITRATE 20 MG TABLET PO SCH ×2 (09:47→22:27)
[2017-08-19] MEDS: FOLIC ACID 1 MG TABLET PO SCH (09:47)
[2017-08-19] MEDS: DIPHENHYDRAMINE HCL 50 MG/ML VIAL IV PRN (09:47)
[2017-08-19] MEDS: AMLODIPINE BESYLATE 10 MG TABLET PO SCH (09:47)
[2017-08-19] MEDS: IRON POLYSACCHARIDES COMPLEX 150 MG CAPSULE PO SCH ×2 (09:48→17:03)
[2017-08-19] MEDS: POLYETHYLENE GLYCOL 3350 POWDER 17 GM/1 PACKET PO SCH (09:48)
[2017-08-19] MEDS: SIMETHICONE 80 MG TAB.CHEW PO PRN ×2 (12:14→20:44)
[2017-08-19] MEDS: CITALOPRAM HYDROBROMIDE 20 MG TABLET PO SCH (12:14)
[2017-08-19] MEDS: ALPRAZOLAM 0.25 MG TABLET PO PRN (12:17)
--- NOTE | 2017-08-19 12:28 | PDOC PROGRESS REPORT ---
Subjective Progress Note for:: 08/19/17 Subjective:: Sitting in bed comfortable on 3 L per nasal cannula. No new complaints Reason For Visit: HEART FAILURE Physical Exam Vital Signs: Temp Pulse Resp BP Pulse Ox 98.0 F 73 18 117/50 L 96 08/19/17 11:42 08/19/17 11:50 08/19/17 11:50 08/19/17 11:42 08/19/17 11:50 Intake & Output 08/18/17 08/19/17 08/20/17 05:59 05:59 05:59 Intake Total 0 1360 611 Output Total 125 4350 2200 Balance -125 -2990 -1589 Weight 170 lb 3.15 oz 170 lb 3.15 oz 164 lb 14.492 oz General appearance: PRESENT: no acute distress Respiratory exam: PRESENT: clear to auscultation scott, decreased breath sounds, prolonged expiratory phas Cardiovascular exam: PRESENT: RRR GI/Abdominal exam: PRESENT: soft Extremities exam: PRESENT: +2 edema - Essentially unchanged Musculoskeletal exam: PRESENT: normal inspection Neurological exam: PRESENT: awake Psychiatric exam: PRESENT: appropriate affect Skin exam: PRESENT: warm Results Laboratory Results: 08/19/17 04:31 08/18/17 08/19/17 16:00 04:31 Sodium 146.1 H 148.5 H Potassium 5.2 H 5.1 H Chloride 105 103 Carbon Dioxide 31 H 33 H Anion Gap 10 13 BUN 82 H 85 H Creatinine 1.48 H 1.37 H Est GFR ( Amer) 42 L 46 L Est GFR (Non-Af Amer) 35 L 38 L Glucose 115 H 131 H Calcium 9.2 9.2 Phosphorus 4.7 H 4.0 Magnesium 1.9 Albumin 3.7 3.7 08/18/17 08/19/17 04:08 04:31 NT-Pro-B Natriuret Pep 40632 H 87738 H Impressions: Chest X-Ray 08/17/17 16:10 IMPRESSION: Cardiomegaly with pulmonary vascular congestion. Cannot exclude mild pulmonary edema. Chronic interstitial lung disease. Assessment & Plan - Diagnosis (1) Acute on chronic diastolic (congestive) heart failure Is this a current diagnosis for this admission?: Yes Plan: Her last echocardiogram was in March of this year and showed grossly preserved left ventricular systolic function, elevated right heart pressures. Continue Lasix drip, home beta-sudhir and GLORIA inhibitor, continue the BiPAP as needed afterload reduction. Follow her labs closely (2) Hyperkalemia Is this a current diagnosis for this admission?: Yes Plan: Continue to monitor. Improved from yesterday as expected with the Lasix drip. (3) COPD with exacerbation Is this a current diagnosis for this admission?: Yes Plan: She is on 4 L per nasal cannula continuously at baseline and has had frequent exacerbations. Difficult to distinguish between an exacerbation causing her shortness of breath and purely diastolic heart failure. I will treat her empirically for an exacerbation given that she has very little lung reserve. (4) Obesity Qualifiers: Body mass index: BMI 33.0-33.9 Is this a current diagnosis for this admission?: Yes (5) ARF (acute renal failure) Is this a current diagnosis for this admission?: Yes Plan: Presumably due to cardiorenal syndrome. Improving with diuresis. Continue to monitor closely. (6) Acute and chronic respiratory failure ([id number]) Qualifiers: Respiratory failure complication: hypoxia Qualified Code(s): J96.21 - Acute and chronic respiratory failure with hypoxia Is this a current diagnosis for this admission?: Yes Plan: Continue BiPAP as needed, wean oxygen as tolerated. (7) Cirrhosis Qualifiers: Is this a current diagnosis for this admission?: Yes (8) Depression Qualifiers: Is this a current diagnosis for this admission?: Yes Plan: Continue her home medications. She has a history of polysubstance abuse so we need to monitor medications with abuse potential closely (9) Essential hypertension Is this a current diagnosis for this admission?: Yes Plan: Well-controlled on current medications. Continue to monitor closely with diuresis. (10) Hypersplenism Is this a current diagnosis for this admission?: Yes Plan: Due to cirrhosis (11) Hypothyroid Is this a current diagnosis for this admission?: Yes Plan: Continue home medications. Her TSH was therapeutic in May of this year (12) CAD (coronary artery disease) Qualifiers: Is this a current diagnosis for this admission?: Yes (13) Thrombocytopenia Is this a current diagnosis for this admission?: Yes Plan: Due to hypersplenism
[2017-08-19] MEDS: LATANOPROST 0.005% OPH SOLN 2.5 ML OU SCH (22:25)
[2017-08-19] MEDS: ZOLPIDEM TARTRATE 5 MG TABLET PO SCH (22:27)
[2017-08-19] MEDS: BIMATOPROST 0.01% OPH SOLN 2.5 ML/BOTTLE OU SCH (22:28)
[2017-08-19] MEDS: NORMAL SALINE 250 ML with FUROSEMIDE 250 MG IV PRN ×2 (22:28)
[2017-08-20 05:12] LABS: HEMATOCRIT 35.3 % (36.0-47.0); HEMOGLOBIN 11.4 g/dL (12.0-15.5); MEAN CORPUSCULAR HEMOGLOBIN 30.9 pg (27.0-33.4); MEAN CORPUSCULAR HGB CONC 32.3 g/dL (32.0-36.0); MEAN CORPUSCULAR VOLUME 96 fl (80-97); RED BLOOD COUNT 3.69 10^6/uL (3.72-5.28)
[2017-08-20 05:30] LABS: ALBUMIN 3.8 g/dL (3.5-5.0); BLOOD UREA NITROGEN 81 mg/dL (7-20); CALCIUM 9.4 mg/dL (8.4-10.2); CHLORIDE 97 mmol/L (98-107); GLUCOSE 148 mg/dL (75-110); PHOSPHORUS 3.9 mg/dL (2.5-4.5); POTASSIUM 4.7 mmol/L (3.6-5.0); SODIUM 150.1 mmol/L (137-145)
[2017-08-20 05:36] LABS: PLATELET COUNT 39 10^3/uL (150-450)
[2017-08-20 05:37] LABS: ANION GAP 13 (5-19)
[2017-08-20 05:46] LABS: CARBON DIOXIDE 40 mmol/L (22-30)
[2017-08-20] MEDS: LEVOTHYROXINE SODIUM 0.075 MG TABLET PO SCH (06:02)
[2017-08-20] MEDS: LANSOPRAZOLE 15 MG TAB.RAP.DR PO SCH (06:02)
[2017-08-20] MEDS: LEVOTHYROXINE SODIUM 0.1 MG TABLET PO SCH (06:02)
[2017-08-20] MEDS: HEPARIN SOD (PORCINE) 5,000 UNIT/ML 1 ML SYRINGE SUBCUT SCH ×3 (06:18→22:06)
[2017-08-20] MEDS ORDERED: NORMAL SALINE 250 ML with FUROSEMIDE 250 MG IV PRN ×2 (07:46)
[2017-08-20 07:51] LABS: ARTERIAL BLOOD BASE EXCESS 16.1 mmol/L; ARTERIAL BLOOD H2CO3 2.22 mmol/L (1.05-1.35); ARTERIAL BLOOD HCO3 44.5 mmol/L (20-26); ARTERIAL BLOOD O2 SATURATION 81.3 % (94-98); ARTERIAL BLOOD PO2 47.5 mmHg (80-100); ARTERIAL BLOOD TOTAL CO2 46.7 mmol/L (21-25)
[2017-08-20 07:52] LABS: ARTERIAL BLOOD FIO2 35%
[2017-08-20 07:53] LABS: ARTERIAL BLOOD PCO2 73.6 mmHg (35-45)
[2017-08-20] MEDS: DIPHENHYDRAMINE HCL 50 MG/ML VIAL IV PRN (08:20)
[2017-08-20] MEDS: IPRATROPIUM/ALBUTEROL 0.5-2.5 MG/3 ML AMPUL NEB SCH ×4 (08:44→19:28)
[2017-08-20] MEDS: POLYETHYLENE GLYCOL 3350 POWDER 17 GM/1 PACKET PO SCH (09:10)
[2017-08-20] MEDS: IRON POLYSACCHARIDES COMPLEX 150 MG CAPSULE PO SCH (09:10)
[2017-08-20] MEDS: AMLODIPINE BESYLATE 10 MG TABLET PO SCH (09:12)
[2017-08-20] MEDS: CARVEDILOL 6.25 MG TABLET PO SCH ×2 (09:13→21:43)
[2017-08-20] MEDS: ISOSORBIDE DINITRATE 20 MG TABLET PO SCH ×2 (09:13→21:44)
[2017-08-20] MEDS: FOLIC ACID 1 MG TABLET PO SCH (09:13)
[2017-08-20] MEDS: ALPRAZOLAM 0.25 MG TABLET PO PRN (09:13)
[2017-08-20] MEDS: BENAZEPRIL HCL 10 MG TABLET PO SCH (09:13)
[2017-08-20] MEDS: SIMETHICONE 80 MG TAB.CHEW PO PRN ×2 (09:20→19:41)
[2017-08-20] MEDS: CITALOPRAM HYDROBROMIDE 20 MG TABLET PO SCH (11:25)
[2017-08-20] MEDS: METHYLPREDNISOLONE INJ 40 MG/1 ML SDV IV SCH (11:26)
[2017-08-20] MEDS ORDERED: CHLOROTHIAZIDE SODIUM INJ/PF 500 MG SDV IV ONE (12:00)
--- NOTE | 2017-08-20 12:59 | PDOC PROGRESS REPORT ---
Subjective Progress Note for:: 08/20/17 Subjective:: Would like something to help her sleep. No other complaints. Reason For Visit: HEART FAILURE Physical Exam Vital Signs: Temp Pulse Resp BP Pulse Ox 98.2 F 80 24 H 119/64 91 L 08/20/17 11:34 08/20/17 11:34 08/20/17 11:34 08/20/17 11:34 08/20/17 11:34 Intake & Output 08/19/17 08/20/17 08/21/17 05:59 05:59 05:59 Intake Total 1360 1506 442 Output Total 4350 4900 1200 Balance -2990 -3394 -758 Weight 170 lb 3.15 oz 164 lb 14.492 oz 163 lb 2.273 oz General appearance: PRESENT: no acute distress, cooperative, obese Respiratory exam: PRESENT: decreased breath sounds, prolonged expiratory phas. ABSENT: rales, wheezes Cardiovascular exam: PRESENT: RRR GI/Abdominal exam: PRESENT: soft Extremities exam: PRESENT: other - No lower extremity edema is currently evident Neurological exam: PRESENT: awake Psychiatric exam: PRESENT: appropriate affect Skin exam: PRESENT: warm Results Laboratory Results: 08/20/17 04:11 08/20/17 04:11 08/20/17 08/20/17 08/20/17 04:11 04:11 06:45 WBC 2.0 L D RBC 3.69 L Hgb 11.4 L Hct 35.3 L MCV 96 MCH 30.9 MCHC 32.3 RDW 19.0 H Plt Count 39 L Carbonic Acid 2.22 H HCO3/H2CO3 Ratio 20:1 ABG pH 7.40 ABG pCO2 73.6 H* ABG pO2 47.5 L ABG HCO3 44.5 H ABG O2 Saturation 81.3 L ABG Base Excess 16.1 FiO2 35% Sodium 150.1 H Potassium 4.7 Chloride 97 L Carbon Dioxide 40 H* Anion Gap 13 BUN 81 H Creatinine 1.49 H Est GFR ( Amer) 42 L Est GFR (Non-Af Amer) 35 L Glucose 148 H Calcium 9.4 Phosphorus 3.9 Magnesium 1.6 Albumin 3.8 08/18/17 08/19/17 08/20/17 04:08 04:31 04:11 NT-Pro-B Natriuret Pep 94448 H 21804 H 96968 H Impressions: Chest X-Ray 08/17/17 16:10 IMPRESSION: Cardiomegaly with pulmonary vascular congestion. Cannot exclude mild pulmonary edema. Chronic interstitial lung disease. Assessment & Plan - Diagnosis (1) Acute on chronic diastolic (congestive) heart failure Is this a current diagnosis for this admission?: Yes Plan: Her last echocardiogram was in March of this year and showed grossly preserved left ventricular systolic function, elevated right heart pressures. Stop Lasix drip, continue home beta-sudhir and GLORIA inhibitor, continue the BiPAP as needed afterload reduction. Follow her labs closely (2) Hyperkalemia Is this a current diagnosis for this admission?: Yes Plan: Currently normal. Continue to monitor. (3) COPD with exacerbation Is this a current diagnosis for this admission?: Yes (4) ARF (acute renal failure) Is this a current diagnosis for this admission?: Yes Plan: Presumably due to cardiorenal syndrome. Roughly stable overnight with diuresis. Continue to monitor closely. (5) Acute and chronic respiratory failure ([id number]) Qualifiers: Respiratory failure complication: hypoxia Qualified Code(s): J96.21 - Acute and chronic respiratory failure with hypoxia Is this a current diagnosis for this admission?: Yes Plan: Continue BiPAP as needed, wean oxygen as tolerated. (6) Cirrhosis Qualifiers: Is this a current diagnosis for this admission?: Yes (7) Depression Qualifiers: Is this a current diagnosis for this admission?: Yes Plan: Continue her home medications. She has a history of polysubstance abuse so we need to monitor medications with abuse potential closely (8) Essential hypertension Is this a current diagnosis for this admission?: Yes Plan: Well-controlled on current medications. Continue to monitor closely with diuresis. (9) Hypersplenism Is this a current diagnosis for this admission?: Yes Plan: Due to cirrhosis (10) Hypothyroid Is this a current diagnosis for this admission?: Yes Plan: Continue home medications. Her TSH was therapeutic in May of this year (11) CAD (coronary artery disease) Qualifiers: Is this a current diagnosis for this admission?: Yes (12) Thrombocytopenia Is this a current diagnosis for this admission?: Yes Plan: Due to hypersplenism. This is a little low for her. No need for transfusion (13) Obesity Qualifiers: Body mass index: BMI 33.0-33.9 Is this a current diagnosis for this admission?: Yes (14) Hypernatremia Is this a current diagnosis for this admission?: Yes Plan: Probably from rapid diuresis. I will give her a dose of Diuril and recheck it in the morning.
[2017-08-20] MEDS ORDERED: ACETAZOLAMIDE SODIUM INJ 500 MG VIAL IV ONE (13:00)
[2017-08-20] MEDS: IPRATROPIUM/ALBUTEROL 0.5-2.5 MG/3 ML AMPUL NEB PRN (13:24)
[2017-08-20] MEDS: QUETIAPINE FUMARATE 25 MG TABLET PO SCH (21:43)
[2017-08-20] MEDS: BIMATOPROST 0.01% OPH SOLN 2.5 ML/BOTTLE OU SCH (21:43)
[2017-08-20] MEDS: ZOLPIDEM TARTRATE 5 MG TABLET PO SCH (21:44)
[2017-08-20] MEDS: LATANOPROST 0.005% OPH SOLN 2.5 ML OU SCH (21:50)
[2017-08-20] MEDS ORDERED: ACETAZOLAMIDE SODIUM INJ 500 MG VIAL IV SCH (22:00)
[2017-08-21] MEDS: LANSOPRAZOLE 15 MG TAB.RAP.DR PO SCH (05:28)
[2017-08-21] MEDS: LEVOTHYROXINE SODIUM 0.075 MG TABLET PO SCH (05:28)
[2017-08-21] MEDS: LEVOTHYROXINE SODIUM 0.1 MG TABLET PO SCH (05:28)
[2017-08-21] MEDS: HEPARIN SOD (PORCINE) 5,000 UNIT/ML 1 ML SYRINGE SUBCUT SCH ×3 (05:32→21:35)
[2017-08-21 05:36] LABS: HEMOGLOBIN 11.7 g/dL (12.0-15.5); MEAN CORPUSCULAR HEMOGLOBIN 30.8 pg (27.0-33.4); MEAN CORPUSCULAR HGB CONC 32.4 g/dL (32.0-36.0); MEAN CORPUSCULAR VOLUME 95 fl (80-97); RED BLOOD COUNT 3.79 10^6/uL (3.72-5.28); RED CELL DISTRIBUTION WIDTH 18.6 % (11.5-14.0); WHITE BLOOD COUNT 2.2 10^3/uL (4.0-10.5)
[2017-08-21 05:49] LABS: ALBUMIN 3.8 g/dL (3.5-5.0); BLOOD UREA NITROGEN 68 mg/dL (7-20); CALCIUM 9.3 mg/dL (8.4-10.2); CHLORIDE 95 mmol/L (98-107); GLUCOSE 90 mg/dL (75-110); PHOSPHORUS 4.5 mg/dL (2.5-4.5); POTASSIUM 3.8 mmol/L (3.6-5.0); SODIUM 150.1 mmol/L (137-145)
[2017-08-21 05:56] LABS: ANION GAP 11 (5-19)
[2017-08-21 05:58] LABS: CARBON DIOXIDE 44 mmol/L (22-30)
[2017-08-21] MEDS: ALPRAZOLAM 0.25 MG TABLET PO PRN (06:12)
[2017-08-21 06:33] LABS: PLATELET COUNT 43 10^3/uL (150-450)
[2017-08-21] MEDS: IPRATROPIUM/ALBUTEROL 0.5-2.5 MG/3 ML AMPUL NEB SCH ×4 (08:24→20:01)
[2017-08-21] MEDS: BENAZEPRIL HCL 10 MG TABLET PO SCH (09:29)
[2017-08-21] MEDS: AMLODIPINE BESYLATE 10 MG TABLET PO SCH (09:29)
[2017-08-21] MEDS: ACETAMINOPHEN 325 MG TABLET PO PRN ×3 (09:29→21:31)
[2017-08-21] MEDS: METHYLPREDNISOLONE INJ 40 MG/1 ML SDV IV SCH (09:30)
[2017-08-21] MEDS: CARVEDILOL 6.25 MG TABLET PO SCH ×2 (09:30→21:32)
[2017-08-21] MEDS: ISOSORBIDE DINITRATE 20 MG TABLET PO SCH ×2 (09:30→21:33)
[2017-08-21] MEDS: FOLIC ACID 1 MG TABLET PO SCH (09:30)
[2017-08-21] MEDS: POLYETHYLENE GLYCOL 3350 POWDER 17 GM/1 PACKET PO SCH (09:31)
[2017-08-21] MEDS: CITALOPRAM HYDROBROMIDE 20 MG TABLET PO SCH (11:15)
[2017-08-21] MEDS ORDERED: 1/2 NORMAL SALINE 1,000 ML IV PRN (14:30)
--- NOTE | 2017-08-21 14:50 | PDOC PROGRESS REPORT ---
Subjective Progress Note for:: 08/21/17 Subjective:: No new complaints. Reason For Visit: HEART FAILURE Physical Exam Vital Signs: Temp Pulse Resp BP Pulse Ox 99.0 F 77 18 112/42 L 94 08/21/17 12:29 08/21/17 12:29 08/21/17 12:29 08/21/17 12:29 08/21/17 12:29 Intake & Output 08/20/17 08/21/17 08/22/17 05:59 05:59 05:59 Intake Total 1506 684 275 Output Total 4900 2400 800 Balance -3394 -1716 -525 Weight 164 lb 14.492 oz 154 lb 12.232 oz General appearance: PRESENT: no acute distress Respiratory exam: PRESENT: clear to auscultation scott, decreased breath sounds, prolonged expiratory phas Cardiovascular exam: PRESENT: RRR GI/Abdominal exam: PRESENT: soft Extremities exam: PRESENT: other - No peripheral edema Neurological exam: PRESENT: awake Psychiatric exam: PRESENT: unusual affect Skin exam: PRESENT: warm Results Laboratory Results: 08/21/17 04:28 08/21/17 04:28 08/21/17 08/21/17 04:28 04:28 WBC 2.2 L RBC 3.79 Hgb 11.7 L Hct 36.0 MCV 95 MCH 30.8 MCHC 32.4 RDW 18.6 H Plt Count 43 L Sodium 150.1 H Potassium 3.8 Chloride 95 L Carbon Dioxide 44 H* Anion Gap 11 BUN 68 H Creatinine 1.44 H Est GFR ( Amer) 44 L Est GFR (Non-Af Amer) 36 L Glucose 90 Calcium 9.3 Phosphorus 4.5 Magnesium 1.6 Albumin 3.8 08/18/17 08/19/17 08/20/17 04:08 04:31 04:11 NT-Pro-B Natriuret Pep 92414 H 97593 H 77141 H Impressions: Chest X-Ray 08/17/17 16:10 IMPRESSION: Cardiomegaly with pulmonary vascular congestion. Cannot exclude mild pulmonary edema. Chronic interstitial lung disease. Assessment & Plan - Diagnosis (1) Hypernatremia Is this a current diagnosis for this admission?: Yes Plan: Probably from rapid diuresis. I will give her back a little hypotonic saline overnight and recheck in the morning. (2) Acute on chronic diastolic (congestive) heart failure Is this a current diagnosis for this admission?: Yes Plan: Her last echocardiogram was in March of this year and showed grossly preserved left ventricular systolic function, elevated right heart pressures. Continue home beta-sudhir and GLORIA inhibitor, and nitrate. Follow her labs closely (3) Hyperkalemia Is this a current diagnosis for this admission?: Yes Plan: Currently normal. Continue to monitor. (4) COPD with exacerbation Is this a current diagnosis for this admission?: Yes Plan: She is on 4 L per nasal cannula continuously at baseline and has had frequent exacerbations. Difficult to distinguish between an exacerbation causing her shortness of breath and purely diastolic heart failure. I will treat her empirically for an exacerbation given that she has very little lung reserve. (5) ARF (acute renal failure) Is this a current diagnosis for this admission?: Yes Plan: Presumably due to cardiorenal syndrome. Roughly stable overnight with diuresis but above her baseline. Continue to monitor closely. (6) Acute and chronic respiratory failure ([id number]) Qualifiers: Respiratory failure complication: hypoxia Qualified Code(s): J96.21 - Acute and chronic respiratory failure with hypoxia Is this a current diagnosis for this admission?: Yes Plan: wean oxygen as tolerated. (7) Cirrhosis Qualifiers: Is this a current diagnosis for this admission?: Yes (8) Depression Qualifiers: Is this a current diagnosis for this admission?: Yes Plan: Continue her home medications. She has a history of polysubstance abuse so we need to monitor medications with abuse potential closely (9) Essential hypertension Is this a current diagnosis for this admission?: Yes Plan: Well-controlled on current medications. Continue to monitor closely with diuresis. (10) Hypersplenism Is this a current diagnosis for this admission?: Yes Plan: Due to cirrhosis (11) Hypothyroid Is this a current diagnosis for this admission?: Yes Plan: Continue home medications. Her TSH was therapeutic in May of this year (12) CAD (coronary artery disease) Qualifiers: Is this a current diagnosis for this admission?: Yes (13) Thrombocytopenia Is this a current diagnosis for this admission?: Yes Plan: Due to hypersplenism. This is a little low for her. No need for transfusion (14) Obesity Qualifiers: Body mass index: BMI 33.0-33.9 Is this a current diagnosis for this admission?: Yes
[2017-08-21] MEDS: SIMETHICONE 80 MG TAB.CHEW PO PRN (18:11)
[2017-08-21] MEDS: ZOLPIDEM TARTRATE 5 MG TABLET PO SCH (21:32)
[2017-08-21] MEDS: QUETIAPINE FUMARATE 25 MG TABLET PO SCH (21:33)
[2017-08-21] MEDS: BIMATOPROST 0.01% OPH SOLN 2.5 ML/BOTTLE OU SCH (21:33)
[2017-08-21] MEDS: LATANOPROST 0.005% OPH SOLN 2.5 ML OU SCH (21:35)
[2017-08-22] MEDS: IPRATROPIUM/ALBUTEROL 0.5-2.5 MG/3 ML AMPUL NEB PRN (04:30)
[2017-08-22 05:29] LABS: HEMATOCRIT 37.6 % (36.0-47.0); HEMOGLOBIN 12.2 g/dL (12.0-15.5); MEAN CORPUSCULAR HEMOGLOBIN 30.7 pg (27.0-33.4); MEAN CORPUSCULAR HGB CONC 32.5 g/dL (32.0-36.0); MEAN CORPUSCULAR VOLUME 95 fl (80-97); RED BLOOD COUNT 3.98 10^6/uL (3.72-5.28); RED CELL DISTRIBUTION WIDTH 18.4 % (11.5-14.0); WHITE BLOOD COUNT 3.2 10^3/uL (4.0-10.5)
[2017-08-22] MEDS: LEVOTHYROXINE SODIUM 0.1 MG TABLET PO SCH (05:48)
[2017-08-22] MEDS: LEVOTHYROXINE SODIUM 0.075 MG TABLET PO SCH (05:48)
[2017-08-22] MEDS: HEPARIN SOD (PORCINE) 5,000 UNIT/ML 1 ML SYRINGE SUBCUT SCH ×2 (05:48→13:23)
[2017-08-22] MEDS: LANSOPRAZOLE 15 MG TAB.RAP.DR PO SCH (05:48)
[2017-08-22 05:49] LABS: ALBUMIN 3.8 g/dL (3.5-5.0); ANION GAP 15 (5-19); BLOOD UREA NITROGEN 55 mg/dL (7-20); CALCIUM 9.3 mg/dL (8.4-10.2); CARBON DIOXIDE 35 mmol/L (22-30); CHLORIDE 96 mmol/L (98-107); GLUCOSE 147 mg/dL (75-110); PHOSPHORUS 2.9 mg/dL (2.5-4.5); POTASSIUM 3.7 mmol/L (3.6-5.0); SODIUM 146.3 mmol/L (137-145)
[2017-08-22 06:00] LABS: PLATELET COUNT 29 10^3/uL (150-450)
[2017-08-22] MEDS: IPRATROPIUM/ALBUTEROL 0.5-2.5 MG/3 ML AMPUL NEB SCH ×3 (08:01→16:49)
[2017-08-22] MEDS: FOLIC ACID 1 MG TABLET PO SCH (09:37)
[2017-08-22] MEDS: ISOSORBIDE DINITRATE 20 MG TABLET PO SCH (09:37)
[2017-08-22] MEDS: CARVEDILOL 6.25 MG TABLET PO SCH (09:38)
[2017-08-22] MEDS: METHYLPREDNISOLONE INJ 40 MG/1 ML SDV IV SCH (09:38)
[2017-08-22] MEDS: BENAZEPRIL HCL 10 MG TABLET PO SCH (09:38)
[2017-08-22] MEDS: AMLODIPINE BESYLATE 10 MG TABLET PO SCH (09:38)
[2017-08-22] MEDS: POLYETHYLENE GLYCOL 3350 POWDER 17 GM/1 PACKET PO SCH (09:39)
[2017-08-22] MEDS: CITALOPRAM HYDROBROMIDE 20 MG TABLET PO SCH (11:37)
[2017-08-22] MEDS: ACETAMINOPHEN 325 MG TABLET PO PRN (11:37)
[2017-08-22 14:02] LABS: PATH REVIEW PATHOLOGIST REVIEWED
[2017-08-22 17:30] VITALS: BP 111/42
--- NOTE | 2017-08-22 19:20 | PDOC DISCHARGE SUMMARY ---
General - Admit/Disc Date/PCP Admission Date/Primary Care Provider: 08/17/17 18:12 JORDYN STEEN, DO Discharge Date: 08/22/17 - Discharge Diagnosis (1) Hypernatremia Is this a current diagnosis for this admission?: Yes Summary: From over rapid diuresis. I gave her back a little hypotonic saline and its normal today. (2) Acute on chronic diastolic (congestive) heart failure Is this a current diagnosis for this admission?: Yes Summary: I do not think there is any more to be done acutely. I think there is a considerable amount of fluid to be taken off but it needs to be taken off gently over time. I will increase her Lasix and have her follow-up as an outpatient. (3) Hyperkalemia Is this a current diagnosis for this admission?: Yes Summary: Resolved with Lasix (4) COPD with exacerbation Is this a current diagnosis for this admission?: Yes Summary: Treated with steroids, nebulizers, BiPAP. BiPAP was weaned off. She is back to her baseline 3 L per nasal cannula (5) ARF (acute renal failure) Is this a current diagnosis for this admission?: Yes Summary: Cardiorenal. Improved back to baseline with diuresis. (6) Acute and chronic respiratory failure ([id number]) Is this a current diagnosis for this admission?: Yes (7) Cirrhosis Is this a current diagnosis for this admission?: Yes (8) Depression Is this a current diagnosis for this admission?: Yes Summary: Home medications were continued (9) Essential hypertension Is this a current diagnosis for this admission?: Yes Summary: Home medications were continued (10) Hypersplenism Is this a current diagnosis for this admission?: Yes (11) Hypothyroid Is this a current diagnosis for this admission?: Yes Summary: Home medications were continued (12) CAD (coronary artery disease) Is this a current diagnosis for this admission?: Yes (13) Thrombocytopenia Is this a current diagnosis for this admission?: Yes Summary: Chronic from hypersplenism (14) Obesity Is this a current diagnosis for this admission?: Yes - Additional Information Resuscitation Status: Full Code Discharge Diet: Cardiac Discharge Activity: Activity As Tolerated, Balance Activity w/Rest, Weigh Daily Prescriptions: Furosemide [Lasix 40 mg Tablet] 40 mg PO 0800,1400 #60 tablet Prednisone 20 mg PO BID #10 tablet Home Medications: Alprazolam [Xanax 0.25 mg Tablet] 0.25 mg PO Q8HP PRN 08/18/17 Amlodipine Besylate [Norvasc 10 mg Tablet] 10 mg PO DAILY 08/18/17 Benazepril HCl [Lotensin 10 mg Tablet] 10 mg PO DAILY 08/18/17 Carvedilol [Coreg 6.25 mg Tablet] 6.25 mg PO Q12 08/18/17 Citalopram Hydrobromide [Celexa] 20 mg PO DAILY 08/18/17 Esomeprazole Magnesium [Nexium] 40 mg PO DAILY 08/18/17 Folic Acid [Folvite 1 mg Tablet] 1 mg PO DAILY 08/18/17 Ipratropium/Albuterol Sulfate [Combivent Respimat 4 gm Mdi] 1 puff IH QID Ipratropium/Albuterol Sulfate [Iprat-Albut 0.5-3(2.5) mg/3 ml] 1 vial IH QID Isosorbide Dinitrate [Isordil Titradose 20 mg Tablet] 20 mg PO DAILY 08/18/17 Latanoprost [Xalatan] 1 drop OU QHS 08/18/17 Lubiprostone [Amitiza 24 Mcg Capsule] 24 mcg PO DAILY 08/18/17 Zolpidem Tartrate [Ambien] 10 mg PO QHS 08/18/17 Furosemide [Lasix 40 mg Tablet] 40 mg PO 0800,1400 #60 tablet 08/22/17 Prednisone 20 mg PO BID #10 tablet 08/22/17 History of Present Illness Patient complains of: Short of breath History of Present Illness: ROSALVA DOLL is a 66 year old female with multiple medical problems who presents to the ER with 3 days of progressive shortness of breath, lower extremity swelling, inability to lie flat. No changes in her appetite. She denies any chest pain, fevers, chills. States she has been taking her medications as directed Hospital Course Hospital Course: She was diuresed with a Lasix drip with good response. Her lower extremity edema resolved, creatinine improved, however, she developed hypernatremia. I stopped her Lasix drip, gave her back some free water with hypotonic saline. Today her sodium is normal. I think she will require continued increased diuresis, so I will discharge her on twice daily Lasix. She has severe underlying COPD dependent on 3 L per nasal cannula around-the- clock. I empirically treated her for a COPD exacerbation. And she is currently 97% on 3 L. Physical Exam Vital Signs: Temp Pulse Resp BP Pulse Ox 98.4 F 75 20 102/50 L 97 08/22/17 16:05 08/22/17 16:05 08/22/17 16:05 08/22/17 16:05 08/22/17 16:05 Intake & Output 08/21/17 08/22/17 08/23/17 05:59 05:59 05:59 Intake Total 684 1851 200 Output Total 2400 2175 475 Balance -1518 -324 -180 Weight 154 lb 12.232 oz 154 lb 5.177 oz General appearance: PRESENT: no acute distress, obese, other - Chronically ill- appearing Respiratory exam: PRESENT: prolonged expiratory phas, rales - She still has a few dependent rales bilaterally. ABSENT: rhonchi, wheezes Cardiovascular exam: PRESENT: RRR GI/Abdominal exam: PRESENT: soft Extremities exam: PRESENT: other - No peripheral edema Musculoskeletal exam: PRESENT: normal inspection Neurological exam: PRESENT: alert Psychiatric exam: PRESENT: unusual affect Skin exam: PRESENT: warm. ABSENT: normal color - Somewhat ashen Results Laboratory Results: 08/22/17 04:30 08/22/17 04:30 08/22/17 08/22/17 04:30 04:30 WBC 3.2 L RBC 3.98 Hgb 12.2 Hct 37.6 MCV 95 MCH 30.7 MCHC 32.5 RDW 18.4 H Plt Count 29 L* Sodium 146.3 H Potassium 3.7 Chloride 96 L Carbon Dioxide 35 H Anion Gap 15 BUN 55 H Creatinine 1.14 Est GFR ( Amer) 57 L Est GFR (Non-Af Amer) 47 L Glucose 147 H Calcium 9.3 Phosphorus 2.9 Magnesium 1.4 L Albumin 3.8 08/18/17 08/19/17 08/20/17 04:08 04:31 04:11 NT-Pro-B Natriuret Pep 67077 H 61193 H 86218 H 08/22/17 04:30 NT-Pro-B Natriuret Pep 56227 H Impressions: Chest X-Ray 08/17/17 16:10 IMPRESSION: Cardiomegaly with pulmonary vascular congestion. Cannot exclude mild pulmonary edema. Chronic interstitial lung disease. Qualifiers - * PATIENT BEING DISCHARGED WITH ANY OF THE FOLLOWING DIAGNOSIS: Heart Failure HF Pt being discharged on ACEI for LVEF less than 40%?: Yes HF Pt being discharged on ARBS for LVEF less than 40%?: No Reason(s) for not prescribing ARBS:: Not indicated HF Pt with Afib discharged with Warfarin?: No Reason(s) for not prescribing Warfarin:: Not indicated HF Pt discharged on evidence-based Beta Mar:: Yes
== END 2017-08-22 16:52 | disposition home health service (06) | DRG 291 ==
LOC: ER 15:13 → EH 18:12 → 3N 21:30
PROVIDERS: ADMIT Internal Medicine; ATTEND Internal Medicine
DX: I11.0 Hypertensive heart disease with heart failure (principal); J96.21 Acute and chronic respiratory failure with hypoxia; N17.9 Acute kidney failure, unspecified; J44.1 Chronic obstructive pulmonary disease with (acute) exacerbation; E87.0 Hyperosmolality and hypernatremia; E87.5 Hyperkalemia; I50.33 Acute on chronic diastolic (congestive) heart failure; E11.9 Type 2 diabetes mellitus without complications; E03.9 Hypothyroidism, unspecified; D73.1 Hypersplenism; K74.60 Unspecified cirrhosis of liver; D69.6 Thrombocytopenia, unspecified; E66.9 Obesity, unspecified; F32.9 Major depressive disorder, single episode, unspecified; I25.2 Old myocardial infarction; Z87.891 Personal history of nicotine dependence; Z79.51 Long term (current) use of inhaled steroids; Z79.899 Other long term (current) drug therapy; Z68.33 Body mass index [BMI] 33.0-33.9, adult
CPT/HCPCS: 36415; 71046; 80053; 80069; 81001; 82803; 82962; 83605; 83735; 83880; 84484; 85025; 85027; 85610; 87040; 87086; 93005; 93010; 94660; 96374; 96375; 99285; J1120; J1200; J1205; J1644; J1885; J1940; J2920; J3490; J7050; J7620

== ENCOUNTER 2017-08-23 15:47 | Inpatient (IN) | payer MEDICARE ==
[~2017-08-23 15:47] MED LIST changes: -FERRIC CARBOXYMALTOSE 750 MG in NORMAL SALINE 250 ML IV PRN; -NORMAL SALINE 250 ML IV PRN; +SUCCINYLCHOLINE CHLORIDE INJ 200 MG/10 ML VIAL ONE
[2017-08-23] MEDS ORDERED: NALOXONE HCL INJ/PF 0.4 MG/1 ML SDV ONE (16:02)
--- NOTE | 2017-08-23 16:10 | ER Document Report ---
ED General <OZZIE BORDEN - Last Filed: 08/23/17 22:01> - General TRAVEL OUTSIDE OF THE [place] IN LAST 30 DAYS: No <MARIELA DUDLEY - Last Filed: 08/29/17 18:10> - General Chief Complaint: Back Pain Stated Complaint: BACK PAIN Notes: This 66-year-old female patient was admitted to the hospital on 08/17/2017 and discharged yesterday on 08/22/2017. She came in for shortness of breath and was discharged with diagnosis of congestive heart failure. She does have chronic back pain, she has COPD and is on 4 L nasal cannula at home. EMS was called today for excruciating back pain. Those were transporting the patient here and gave her 50 mcg of fentanyl IV for her pain. Shortly after that she became unresponsive and on arrival was not breathing very well when I went in to see the patient she had a nonrebreather mask and nasal cannula on with O2 sats in the 95% range. Patient was mouth breathing with long pauses between breaths. She was given IV Narcan and became a little more responsive to the point that she would open her eyes on command, her pupils were not miotic. She was switched to nasal cannula 4 L and oxygen saturation stayed in the 95-98% range. Shortly after that her oxygen saturations began to drop, the nasal cannula was placed in the patient's mouth since she was mouth breathing and was taking good deep breaths, only had long pauses between the breasts. Eventually this was not maintaining saturations so mask was replaced, and flumazenil was ordered due to the patient's benzodiazepine use. The patient was noted to have a temperature of 104.6 The patient did become much more alert after the flumazenil. She is now talking and able to follow commands to take deep breath and cough. The family did arrive and state that it appears that her feet and ankle region is starting to swell some compared to when she was discharged yesterday. (OZZIE BORDEN) - Related Data Allergies/Adverse Reactions: oxycodone Allergy (Severe, Verified 08/17/17 15:15) ended up in hospital with kidney failure codeine Allergy (Verified 08/17/17 15:15) midazolam HCl [From Versed] Allergy (Verified 08/17/17 15:15) ON VENT X 19 DAYS hydrocodone [Hydrocodone] Adverse Reaction (Mild, Verified 08/17/17 15:15) GI upset Past Medical History - General Information source: Relative, Emergency Med Personnel - Social History Smoking Status: Unknown if Ever Smoked Family History: CAD, COPD - Past Medical History Cardiac Medical History: Reports: Hx Congestive Heart Failure, Hx Coronary Artery Disease, Hx Heart Attack - 1995, Hx Hypercholesterolemia, Hx Hypertension , Hx Heart Murmur Pulmonary Medical History: Reports: Hx Asthma, Hx Bronchitis, Hx COPD Endocrine Medical History: Reports: Hx Diabetes Mellitus Type 2, Hx Hypothyroidism Renal/ Medical History: Reports: Hx Renal Insufficiency GI Medical History: Reports: Hx Cirrhosis, Hx Gastroesophageal Reflux Disease Musculoskeltal Medical History: Reports Hx Arthritis Psychiatric Medical History: Reports: Hx Depression - xanax, celaxa Past Surgical History: Reports: Hx Cardiac Catheterization, Hx Section - x3, Hx Cholecystectomy, Hx Coronary Stent - x12 - Immunizations Hx Diphtheria, Pertussis, Tetanus Vaccination: No Hx Pneumococcal Vaccination: 12/24/14 <MARIELA DUDLEY - Last Filed: 08/29/17 18:10> Review of Systems - Review of Systems Constitutional: No symptoms reported EENT: No symptoms reported Cardiovascular: No symptoms reported Respiratory: See HPI, Short of breath Gastrointestinal: No symptoms reported Genitourinary: No symptoms reported Female Genitourinary: No symptoms reported Musculoskeletal: See HPI, Back pain Skin: No symptoms reported Hematologic/Lymphatic: No symptoms reported Neurological/Psychological: No symptoms reported -: Yes All other systems reviewed and negative <MARIELA DUDLEY - Last Filed: 08/29/17 18:10> Physical Exam - Respiratory Breath sounds: Rhonchi - There is rhonchi when the patient takes a deep breath and coughs when requested. <OZZIE BORDEN - Last Filed: 08/23/17 22:01> <MARIELA DUDLEY - Last Filed: 08/29/17 18:10> - Vital signs Vitals: Temp Resp BP Pulse Ox 104.4 F H 26 H 118/74 82 L 08/23/17 15:55 08/23/17 15:55 08/23/17 15:55 08/23/17 15:55 - Notes Notes: GENERAL: Minimally responsive. HEAD: Normocephalic, atraumatic. EYES: Pupils reactive to light. Extraocular movements intact. ENT: Oral mucosa moist, tongue midline. NECK: Full range of motion. Supple. Trachea midline. LUNGS: Mouth breathing, with long pauses between each breath. No respiratory distress. HEART: Loud heart murmur. Regular rate and rhythm. ABDOMEN: Soft, non-tender. Obese. Non-distended. Bowel sounds present in all 4 quadrants. EXTREMITIES: Moves all 4 extremities spontaneously. No edema. NEUROLOGICAL: Minimally responsive. PSYCH: Minimally responsive. SKIN: Very warm, dry, normal turgor. No rashes or lesions noted. (MARIELA DUDLEY) Course - Laboratory Result Diagrams: 08/23/17 15:15 08/23/17 15:15 - Diagnostic Test Radiology reviewed: Image reviewed, Reports reviewed - Chest x-ray is read as diffuse airspace disease or concentrated in the perihilar regions with cardiac enlargement and vascular congestion. Impression is congestive heart failure with no significant change from 08/17/2017. - EKG Interpretation by [facility] EKG shows normal: Sinus rhythm, [place], Intervals, QRS Complexes, ST-T Waves Rate: Normal - 94 Rhythm: NSR Ven[place]/QRS: RBBB Voltage: Consistant with LVH P Waves: LAE - Consults Dr. Aguiar Time consulted: 20:25 Consulted provider: will come to ER <OZZIE BORDEN - Last Filed: 08/23/17 22:01> - Laboratory Result Diagrams: 08/24/17 11:35 08/24/17 11:35 <MARIELA DUDLEY - Last Filed: 08/29/17 18:10> - Re-evaluation Re-evalutation: 08/23/17 17:08 I suspect the patient had an excessive amount of benzodiazepines on board, when she was given the fentanyl by EMS it was just enough to make her nearly unresponsive with some apnea. The Narcan seemed to improve her breathing status and made her a little more alert, the flumazenil allow her to become more responsive to the point of actually talking and answering questions. 08/23/17 17:13 The chest x-ray is not read as pneumonia, however I suspect there is pneumonia looking at the chest x-ray, the 104.6 temperature, and white blood cell count with 5% bands. 08/23/17 18:06 A blood gas came back with a PCO2 of 83 and a PO2 of 166, I suspect this gas was done while the patient was on 10 L O2 by mask after having a breathing treatment administered by 10 L of oxygen. I removed the 10 L mask and reinstated the nasal cannula at 6 L. BiPAP was ordered at this time. 08/23/17 20:40 ABG done after about 2 hours on BiPAP and 60% FiO2 shows a PCO2 of 74 and a PO2 of 78. I went spoke with the patient, got her to take deep breaths and cough. She states her breathing feels good to her at this time and she has no complaints. Her blood pressure did drop to the 90 systolic range. I am withholding IV fluid at this time due to her history of congestive heart failure, the elevated BNP, and the radiologist reading of congestive heart failure. (OZZIE BORDEN) - Vital Signs Vital signs: Temp Pulse Resp BP Pulse Ox 99.1 F 67 18 109/59 L 97 08/24/17 18:00 08/24/17 14:21 08/24/17 17:19 08/24/17 17:19 08/24/17 17:19 - Laboratory Laboratory results interpreted by me: 08/23/17 08/23/17 08/23/17 15:15 15:15 15:15 RDW 18.7 H Plt Count 28 L* Seg Neuts % (Manual) 85 H Lymphocytes % (Manual) 4 L Metamyelocytes % 1 H Abs Lymphs (Manual) 0.2 L Carbonic Acid ABG pH ABG pCO2 ABG pO2 ABG HCO3 ABG Total CO2 ABG O2 Saturation Sodium 147.2 H Chloride 95 L Carbon Dioxide 39 H BUN 70 H Creatinine 1.52 H Est GFR ( Amer) 41 L Est GFR (Non-Af Amer) 34 L Glucose 179 H Direct Bilirubin 0.8 H AST 70 H Ammonia Creatine Kinase 24 L NT-Pro-B Natriuret Pep 73674 H Total Protein 8.5 H Urine Protein Urine Blood Urine Urobilinogen Ur Leukocyte Esterase 08/23/17 08/23/17 08/23/17 16:50 16:50 18:52 RDW Plt Count Seg Neuts % (Manual) Lymphocytes % (Manual) Metamyelocytes % Abs Lymphs (Manual) Carbonic Acid 2.50 H ABG pH 7.28 L ABG pCO2 83.2 H* ABG pO2 165.8 H ABG HCO3 37.8 H ABG Total CO2 40.3 H ABG O2 Saturation 98.8 H Sodium Chloride Carbon Dioxide BUN Creatinine Est GFR ( Amer) Est GFR (Non-Af Amer) Glucose Direct Bilirubin AST Ammonia 43.3 H Creatine Kinase NT-Pro-B Natriuret Pep Total Protein Urine Protein >=500 H Urine Blood LARGE H Urine Urobilinogen 2.0 H Ur Leukocyte Esterase TRACE H 08/23/17 20:00 RDW Plt Count Seg Neuts % (Manual) Lymphocytes % (Manual) Metamyelocytes % Abs Lymphs (Manual) Carbonic Acid 2.25 H ABG pH 7.26 L ABG pCO2 74.6 H* ABG pO2 78.7 L ABG HCO3 33.0 H ABG Total CO2 35.3 H ABG O2 Saturation 93.3 L Sodium Chloride Carbon Dioxide BUN Creatinine Est GFR ( Amer) Est GFR (Non-Af Amer) Glucose Direct Bilirubin AST Ammonia Creatine Kinase NT-Pro-B Natriuret Pep Total Protein Urine Protein Urine Blood Urine Urobilinogen Ur Leukocyte Esterase Critical Care Note - Critical Care Note Total time excluding time spent on procedures (mins): 50 <OZZIE BORDEN - Last Filed: 08/23/17 22:01> Discharge - Discharge Admitting Provider: Hospitalist Unit Admitted: ICU <OZZIE BORDEN - Last Filed: 08/23/17 22:01> <MAREILA DUDLEY - Last Filed: 08/29/17 18:10> - Discharge Clinical Impression: Pneumonia, Thrombocytopenia, Obstructive chronic bronchitis with exacerbation, Hepatic encephalopathy Congestive heart failure (CHF) Qualifiers: Heart failure type: unspecified Heart failure chronicity: acute on chronic Qualified Code(s): I50.9 - Heart failure, unspecified Fever Qualifiers: Fever type: unspecified Qualified Code(s): R50.9 - Fever, unspecified Hypotension Qualifiers: Hypotension type: unspecified hypotension type Qualified Code(s): I95.9 - Hypotension, unspecified Respiratory failure Qualifiers: Chronicity: acute on chronic Respiratory failure complication: hypoxia and hypercapnia Qualified Code(s): J96.21 - Acute and chronic respiratory failure with hypoxia Chronic renal insufficiency Qualifiers: Chronic kidney disease stage: unspecified stage Qualified Code(s): N18.9 - Chronic kidney disease, unspecified Condition: Critical Disposition: ADMITTED INPATIENT Scribe Attestation: 08/23/17 17:21 I personally performed the services described in the documentation, reviewed and edited the documentation which was dictated to the scribe in my presence, and it accurately records my words and actions. (OZZIE BORDEN) Scribe Documentation - Scribe Written by Scribe:: Ольга Love, 08/23/2017 16:30 acting as scribe for :: Mayi <MARIELA DUDLEY - Last Filed: 08/29/17 18:10>
[2017-08-23] MEDS ORDERED: ACETAMINOPHEN 650 MG SUPP.RECT PR ONE ×2 (16:14→20:40)
[2017-08-23] MEDS ORDERED: FLUMAZENIL INJ 0.5 MG/5 ML VIAL IV ONE (16:15)
[2017-08-23 16:30] LABS: HEMATOCRIT 39.7 % (36.0-47.0); HEMOGLOBIN 12.7 g/dL (12.0-15.5); MEAN CORPUSCULAR HEMOGLOBIN 30.6 pg (27.0-33.4); MEAN CORPUSCULAR VOLUME 95 fl (80-97); RED BLOOD COUNT 4.16 10^6/uL (3.72-5.28); RED CELL DISTRIBUTION WIDTH 18.7 % (11.5-14.0); WHITE BLOOD COUNT 5.6 10^3/uL (4.0-10.5)
[2017-08-23 16:42] LABS: ALANINE AMINOTRANSFERASE 44 U/L (9-52); ALBUMIN 3.9 g/dL (3.5-5.0); ALKALINE PHOSPHATASE 84 U/L (38-126); ANION GAP 13 (5-19); ASPARTATE AMINO TRANSFERASE 70 U/L (14-36); BILIRUBIN,DIRECT 0.8 mg/dL (0.0-0.4); BILIRUBIN,TOTAL 1.2 mg/dL (0.2-1.3); BLOOD UREA NITROGEN 70 mg/dL (7-20); CALCIUM 9.4 mg/dL (8.4-10.2); CARBON DIOXIDE 39 mmol/L (22-30); CHLORIDE 95 mmol/L (98-107); CREATINE KINASE 24 U/L (30-135); GLUCOSE 179 mg/dL (75-110); POTASSIUM 3.8 mmol/L (3.6-5.0); SODIUM 147.2 mmol/L (137-145); TOTAL PROTEIN 8.5 g/dL (6.3-8.2)
--- NOTE | 2017-08-23 16:46 | RADIOLOGY REPORT (SQ) ---
EXAM DESCRIPTION: CHEST SINGLE VIEW COMPLETED DATE/TIME: 08/23/2017 4:37 pm REASON FOR STUDY: Short of breath, near apnea from OD COMPARISON: 08/17/2017 NUMBER OF VIEWS: One view. TECHNIQUE: Single frontal radiographic view of the chest acquired. LIMITATIONS: None. FINDINGS: LUNGS AND PLEURA: Diffuse airspace disease more concentrated in the perihilar regions. MEDIASTINUM AND HILAR STRUCTURES: Stable. HEART AND VASCULATURE: Cardiac enlargement. Vascular congestion. BONES: No acute findings. HARDWARE: None in the chest. OTHER: Unchanged position of right-sided port. IMPRESSION: CHF. No significant change. TECHNICAL DOCUMENTATION: JOB ID: [id number] [employer] All Rights Reserved Reading location - IP/workstation name: [email or web address]
[2017-08-23 16:53] LABS: ABSOLUTE LYMPHOCYTES# (MANUAL) 0.2 10^3/uL (0.5-4.7); ABSOLUTE MONOCYTES # (MANUAL) 0.3 10^3/uL (0.1-1.4); BAND NEUTROPHILS % (MANUAL) 4 % (3-5); BASOPHILS % (MANUAL) 0 % (0-2); EOSINOPHILS % (MANUAL) 0 % (0-6); LYMPHOCYTES % (MANUAL) 4 % (13-45); METAMYELOCYTES % (MANUAL) 1 % (0); MONOCYTES % (MANUAL) 6 % (3-13); SEGMENTED NEUTROPHILS % (MAN) 85 % (42-78); TOTAL CELLS COUNTED 100
[2017-08-23 16:55] LABS: ANISOCYTOSIS 2+; OVALOCYTES SLIGHT; PLATELET COMMENT DECREASED; POIKILOCYTOSIS SLIGHT; TARGET CELLS SLIGHT; TOXIC VACUOLATION PRESENT
[2017-08-23 16:56] LABS: TROPONIN I 0.146 ng/mL
[2017-08-23 16:58] LABS: PLATELET COUNT 28 10^3/uL (150-450)
[2017-08-23] MEDS ORDERED: IPRATROPIUM/ALBUTEROL 0.5-2.5 MG/3 ML AMPUL NEB ONE (17:13)
[2017-08-23 17:35] LABS: ARTERIAL BLOOD HCO3 37.8 mmol/L (20-26); ARTERIAL BLOOD O2 SATURATION 98.8 % (94-98); ARTERIAL BLOOD PH 7.28 (7.35-7.45); ARTERIAL BLOOD PO2 165.8 mmHg (80-100); ARTERIAL BLOOD TOTAL CO2 40.3 mmol/L (21-25)
[2017-08-23 17:42] LABS: ARTERIAL BLOOD FIO2 10
[2017-08-23 17:43] LABS: ARTERIAL BLOOD PCO2 83.2 mmHg (35-45)
[2017-08-23] MEDS ORDERED: LEVOFLOXACIN 750 MG/D5W RTU 750 MG/150 ML RTUPB IV ONE (18:46)
[2017-08-23] MEDS ORDERED: LACTULOSE SYRUP 20 GM/30 ML UDCUP PO ONE (19:08)
[2017-08-23 19:32] LABS: AMORPHOUS SEDIMENT,URINE 3+ /HPF; APPEARANCE,URINE CLOUDY; BILIRUBIN,URINE NEGATIVE (NEGATIVE); GLUCOSE, URINE NEGATIVE (NEGATIVE); KETONES,URINE NEGATIVE (NEGATIVE); LEUKOCYTE ESTERASE,URINE TRACE (NEGATIVE); NITRITE,URINE NEGATIVE (NEGATIVE); PROTEIN,URINE >=500 mg/dL (NEGATIVE); URINE SPECIFIC GRAVITY 1.014
[2017-08-23 19:33] LABS: COLOR,URINE DARK YELLOW
[2017-08-23 20:20] LABS: ARTERIAL BLOOD BASE EXCESS 3.9 mmol/L; ARTERIAL BLOOD H2CO3 2.25 mmol/L (1.05-1.35); ARTERIAL BLOOD O2 SATURATION 93.3 % (94-98); ARTERIAL BLOOD PH 7.26 (7.35-7.45); ARTERIAL BLOOD PO2 78.7 mmHg (80-100); ARTERIAL BLOOD TOTAL CO2 35.3 mmol/L (21-25)
[2017-08-23 20:22] LABS: ARTERIAL BLOOD FIO2 60%
[2017-08-23 20:23] LABS: ARTERIAL BLOOD PCO2 74.6 mmHg (35-45)
[2017-08-23] MEDS ORDERED: NOREPINEPHRINE BITARTRATE INJ/PF 4 MG/4 ML SDV IV ONE (21:00)
[2017-08-23] MEDS ORDERED: VANCOMYCIN HCL INJ 1000 MG VIAL ONE (21:25)
[2017-08-23 21:27] LABS: URINE AMPHETAMINES SCREEN NEGATIVE; URINE BARBITURATES SCREEN NEGATIVE; URINE BENZODIAZEPINES SCREEN UNCONFIRMED POSITIVE; URINE COCAINE SCREEN NEGATIVE; URINE MARIJUANA (THC) SCREEN NEGATIVE; URINE METHADONE SCREEN NEGATIVE; URINE PHENCYCLIDINE SCREEN NEGATIVE
[2017-08-23] MEDS ORDERED: VANCOMYCIN HCL INJ 1000 MG VIAL IV ONE (21:57)
[2017-08-23] MEDS ORDERED: CEFEPIME 2 GM/D5W RTU 2 GM/50 ML RTUPB IV SCH (22:00)
[2017-08-23] MEDS ORDERED: GLUCAGON,HUMAN RECOMB 1 MG INJ IM PRN (22:05)
[2017-08-23] MEDS ORDERED: DEXTROSE 40% GEL 15 GM TUBE PO PRN ×2 (22:05)
[2017-08-23] MEDS ORDERED: DEXTROSE 50%-WATER 25 GM/50 ML DISP.SYRIN IV PRN ×2 (22:05)
[2017-08-23] MEDS ORDERED: IPRATROPIUM/ALBUTEROL 0.5-2.5 MG/3 ML AMPUL NEB PRN (22:05)
[2017-08-23] MEDS ORDERED: ACETAMINOPHEN 325 MG TABLET PO PRN (22:05)
[2017-08-23] MEDS ORDERED: INSULIN LISPRO 100 UNIT/ML 3 ML VIAL SUBCUT PRN (22:05)
[2017-08-23] MEDS ORDERED: NORMAL SALINE 1000 ML 1,000 ML IV SCH (22:15)
[2017-08-23] MEDS ORDERED: VANCOMYCIN HCL 0 MG in DEXTROSE 5%-WATER 250 ML IV NR (22:15)
[2017-08-23] MEDS ORDERED: PIPERACILLIN/TAZOBACTAM 4.5 GM VIAL IV PRN (22:18)
--- NOTE | 2017-08-23 22:28 | PDOC H&P ---
History of Present Illness Admission Date/PCP: 08/23/17 22:04 JORDYN STEEN DO Patient complains of: Fever History of Present Illness: ROSALVA DOLL is a 66 year old female with an extensive past medical history including severe pulmonary hypertension, congestive heart failure with an ejection fraction of 40%, coronary artery disease, COPD, thrombocytopenia, hepatic cirrhosis with unknown cause, diabetes, chronic pain, depression and benzodiazepine dependence. Patient discharged 24 hours ago for COPD exacerbation. She returns with fever and hypotension. In the emergency room she is found to have a chest x-ray suggestive of pneumonia versus congestive heart failure, ABG reveals acute respiratory failure. She started on empiric antibiotics and referred to the hospitalist for admission. On exam she is critically ill, with a systolic pressure of 76 she started on Levophed and a 2 L normal saline bolus. She is following commands and protecting her airway on BiPAP of 40%. Past Medical History Cardiac Medical History: Reports: Congestive Heart Failure, Coronary Artery Disease, Myocardial Infarction - 1995, Hyperlipidema, Hypertension, Heart Murmur Pulmonary Medical History: Reports: Asthma, Bronchitis, Chronic Obstructive Pulmonary Disease (COPD) Denies: Pneumonia Neurological Medical History: Denies: Seizures Endocrine Medical History: Reports: Diabetes Mellitus Type 2, Hypothyroidism GI Medical History: Reports: Cirrhosis, Gastroesophageal Reflux Disease Denies: Hepatitis, Hiatal Hernia Musculoskeltal Medical History: Reports: Arthritis Psychiatric Medical History: Reports: Depression - xanax, celaxa Hematology: Reports: Anemia Denies: Sickle Cell Disease Past Surgical History Past Surgical History: Reports: Cardiac Catheterization, Section - x3, Cholecystectomy, Coronary Stent - x12 Denies: Amputation, Mastectomy, Pacemaker Social History Information Source: Legal Guardian, [facility] Records Lives with: Family Smoking Status: Unknown if Ever Smoked Frequency of Alcohol Use: None Hx Recreational Drug Use: No Drugs: None Hx Prescription Drug Abuse: No - Advance Directive Resuscitation Status: Full Code Family History Family History: CAD, COPD Parental Family History Reviewed: Yes Children Family History Reviewed: Yes Sibling(s) Family History Reviewed.: Yes Medication/Allergy Home Medications: Alprazolam [Xanax 0.25 mg Tablet] 0.25 mg PO Q8HP PRN 08/18/17 Amlodipine Besylate [Norvasc 10 mg Tablet] 10 mg PO DAILY 08/18/17 Benazepril HCl [Lotensin 10 mg Tablet] 10 mg PO DAILY 08/18/17 Carvedilol [Coreg 6.25 mg Tablet] 6.25 mg PO Q12 08/18/17 Citalopram Hydrobromide [Celexa] 20 mg PO DAILY 08/18/17 Esomeprazole Magnesium [Nexium] 40 mg PO DAILY 08/18/17 Folic Acid [Folvite 1 mg Tablet] 1 mg PO DAILY 08/18/17 Ipratropium/Albuterol Sulfate [Combivent Respimat 4 gm Mdi] 1 puff IH QID Ipratropium/Albuterol Sulfate [Iprat-Albut 0.5-3(2.5) mg/3 ml] 3 ml NEB RTQID Isosorbide Dinitrate [Isordil Titradose 20 mg Tablet] 20 mg PO DAILY 08/18/17 Latanoprost [Xalatan] 1 drop OU QHS 08/18/17 Lubiprostone [Amitiza 24 Mcg Capsule] 24 mcg PO DAILY 08/18/17 Zolpidem Tartrate [Ambien] 10 mg PO QHS 08/18/17 Furosemide [Lasix 40 mg Tablet] 40 mg PO BID 08/23/17 Prednisone [Deltasone 20 mg Tablet] 20 mg PO BID 08/23/17 Allergies/Adverse Reactions: oxycodone Allergy (Severe, Verified 08/17/17 15:15) ended up in hospital with kidney failure codeine Allergy (Verified 08/17/17 15:15) midazolam HCl [From Versed] Allergy (Verified 08/17/17 15:15) ON VENT X 19 DAYS hydrocodone [Hydrocodone] Adverse Reaction (Mild, Verified 08/17/17 15:15) GI upset Review of Systems ROS unobtainable: Due to mental status Physical Exam Vital Signs: Temp Pulse Resp BP Pulse Ox 96.5 F L 19 91/47 L 95 08/23/17 22:01 08/23/17 22:01 08/23/17 22:01 08/23/17 22:01 General appearance: PRESENT: cooperative, disheveled, severe distress Head exam: PRESENT: atraumatic, normocephalic Eye exam: PRESENT: conjunctival injection, EOMI, PERRLA. ABSENT: scleral icterus Ear exam: PRESENT: normal external ear exam Mouth exam: PRESENT: dry mucosa, neck supple, tongue midline Neck exam: ABSENT: carotid bruit, JVD, lymphadenopathy, thyromegaly Respiratory exam: PRESENT: accessory muscle use, crackles, prolonged expiratory phas, retraction, rhonchi, tachypnea Cardiovascular exam: PRESENT: RRR. ABSENT: diastolic murmur, rubs, systolic murmur Pulses: PRESENT: normal dorsalis pedis pul Vascular exam: PRESENT: normal capillary refill GI/Abdominal exam: PRESENT: normal bowel sounds, soft. ABSENT: distended, guarding, mass, organolmegaly, rebound, tenderness Rectal exam: PRESENT: deferred Extremities exam: PRESENT: full ROM. ABSENT: calf tenderness, clubbing, pedal edema Neurological exam: PRESENT: altered, oriented to person, CN II-XII grossly intact Psychiatric exam: PRESENT: appropriate affect, normal mood. ABSENT: homicidal ideation, suicidal ideation Skin exam: PRESENT: dry, intact, warm. ABSENT: cyanosis, rash Results Impressions: Chest X-Ray 08/23/17 16:10 IMPRESSION: CHF. No significant change. Assessment & Plan - Diagnosis (1) Severe sepsis Is this a current diagnosis for this admission?: Yes Plan: ICU admission, levo fed, IV fluid challenge trial Cortef, follow-up lactic acid (2) Pneumonia Is this a current diagnosis for this admission?: Yes Plan: Recent hospitalization, IV Zosyn, cefepime and vancomycin, albuterol and Atrovent ordered. BiPAP support (3) Acute and chronic respiratory failure Is this a current diagnosis for this admission?: Yes Plan: BiPAP support, follow-up ABG, pulmonology consult (4) Pulmonary hypertension Is this a current diagnosis for this admission?: Yes Plan: BiPAP support (5) Diabetes Qualifiers: Diabetes mellitus type: type 2 Diabetes mellitus terminal system operator insulin use: without half-way use Diabetes mellitus complication status: with other specified complication Qualified Code(s): E11.69 - Type 2 diabetes mellitus with other specified complication Is this a current diagnosis for this admission?: Yes Plan: Humalog sliding scale while n.p.o. (6) CAD (coronary artery disease) Qualifiers: Is this a current diagnosis for this admission?: Yes Plan: Initial troponin elevated, EKG unchanged. Likely secondary to demand. Follow- up cardiac enzymes consider cardiology consult (7) Thrombocytopenia Is this a current diagnosis for this admission?: Yes Plan: Chronic with acute worsening likely secondary to sepsis. Treatment of sepsis initiated follow-up CBC - Time Time Spent: Greater than 70 Minutes - Inpatient Certification Medical Necessity: Need Close Monitoring Due to Risk of Patient Decompensation
[2017-08-23] MEDS ORDERED: HYDROCORTISONE SOD SUCCINATE INJ/PF 100 MG/2 ML SDV IV ONE (22:40)
[2017-08-24] MEDS ORDERED: NORMAL SALINE 1000 ML 1,000 ML IV PRN ×2 (00:29→04:18)
[2017-08-24] MEDS ORDERED: CEFEPIME 2 GM/D5W RTU 2 GM/50 ML RTUPB IV ONE (00:36)
[2017-08-24] MEDS ORDERED: PIPERACILLIN/TAZOBACTAM 4.5 GM VIAL IV ONE (00:36)
[2017-08-24] MEDS: MORPHINE SULFATE 10 MG/ML INJ IV PRN ×3 (00:38→16:14)
[2017-08-24] MEDS: PIPERACILLIN SODIUM/TAZOBACTAM 4.5 GM in NORMAL SALINE 100 ML IV SCH ×2 (00:51→05:44)
[2017-08-24] MEDS: NORMAL SALINE 1000 ML 1,000 ML IV PRN ×2 (00:57→04:36)
[2017-08-24 01:24] LABS: ARTERIAL BLOOD BASE EXCESS 8.1 mmol/L; ARTERIAL BLOOD H2CO3 2.77 mmol/L (1.05-1.35); ARTERIAL BLOOD HCO3 38.8 mmol/L (20-26); ARTERIAL BLOOD O2 SATURATION 98.2 % (94-98); ARTERIAL BLOOD PH 7.24 (7.35-7.45); ARTERIAL BLOOD PO2 139.5 mmHg (80-100); ARTERIAL BLOOD TOTAL CO2 41.6 mmol/L (21-25)
[2017-08-24 01:26] LABS: ARTERIAL BLOOD FIO2 50%
[2017-08-24] MEDS: IPRATROPIUM/ALBUTEROL 0.5-2.5 MG/3 ML AMPUL NEB SCH ×3 (01:50→14:21)
[2017-08-24 02:47] LABS: ARTERIAL BLOOD BASE EXCESS 5.1 mmol/L; ARTERIAL BLOOD FIO2 40%; ARTERIAL BLOOD H2CO3 2.92 mmol/L (1.05-1.35); ARTERIAL BLOOD HCO3 37.1 mmol/L (20-26); ARTERIAL BLOOD O2 SATURATION 89.2 % (94-98); ARTERIAL BLOOD PO2 70.8 mmHg (80-100); ARTERIAL BLOOD TOTAL CO2 40.1 mmol/L (21-25)
[2017-08-24 02:49] LABS: ARTERIAL BLOOD PCO2 97.1 mmHg (35-45)
[2017-08-24] MEDS ORDERED: NORMAL SALINE 1000 ML 2,000 ML IV ONE (02:59)
[2017-08-24] MEDS ORDERED: HYDROCORTISONE SOD SUCCINATE INJ/PF 100 MG/2 ML SDV IV ONE (03:00)
[2017-08-24] MEDS ORDERED: PROPOFOL 1,000 MG/100 ML INFUS..BTL IV ONE (03:01)
[2017-08-24] MEDS ORDERED: PROPOFOL INJ 200 MG/20 ML VIAL IV ONE (03:21)
[2017-08-24] MEDS ORDERED: NOREPINEPHRINE BITARTRATE INJ/PF 4 MG/4 ML SDV IV ONE (03:25)
[2017-08-24 03:31] LABS: HEMATOCRIT 38.5 % (36.0-47.0); HEMOGLOBIN 12.2 g/dL (12.0-15.5); MEAN CORPUSCULAR HEMOGLOBIN 30.8 pg (27.0-33.4); MEAN CORPUSCULAR HGB CONC 31.8 g/dL (32.0-36.0); MEAN CORPUSCULAR VOLUME 97 fl (80-97); RED BLOOD COUNT 3.97 10^6/uL (3.72-5.28); RED CELL DISTRIBUTION WIDTH 19.5 % (11.5-14.0)
[2017-08-24 03:37] LABS: PLATELET COUNT 45 10^3/uL (150-450); WHITE BLOOD COUNT 11.4 10^3/uL (4.0-10.5)
[2017-08-24 03:39] LABS: ANION GAP 16 (5-19); BLOOD UREA NITROGEN 77 mg/dL (7-20); CALCIUM 8.3 mg/dL (8.4-10.2); CARBON DIOXIDE 34 mmol/L (22-30); CHLORIDE 98 mmol/L (98-107); GLUCOSE 177 mg/dL (75-110); POTASSIUM 3.7 mmol/L (3.6-5.0); SODIUM 148.4 mmol/L (137-145)
[2017-08-24 03:49] LABS: ABSOLUTE LYMPHOCYTES# (MANUAL) 0.5 10^3/uL (0.5-4.7); ABSOLUTE MONOCYTES # (MANUAL) 0.5 10^3/uL (0.1-1.4); ABSOLUTE NEUTROPHILS# (MANUAL) 10.5 10^3/uL (1.7-8.2); BAND NEUTROPHILS % (MANUAL) 5 % (3-5); BASOPHILS % (MANUAL) 0 % (0-2); EOSINOPHILS % (MANUAL) 0 % (0-6); LYMPHOCYTES % (MANUAL) 4 % (13-45); MONOCYTES % (MANUAL) 4 % (3-13); SEGMENTED NEUTROPHILS % (MAN) 87 % (42-78); TOTAL CELLS COUNTED 100
[2017-08-24 03:50] LABS: CREATINE KINASE MB 0.35 ng/mL (<4.55)
--- NOTE | 2017-08-24 03:50 | RADIOLOGY REPORT (SQ) ---
EXAM DESCRIPTION: Single view of the chest CLINICAL HISTORY: intubation COMPARISON: 08/23/2017 FINDINGS: Single frontal view of the chest. Endotracheal tube 3 cm above the isadora. NG tube with tip below the diaphragm. Right IJ Mediport is stable. Atherosclerotic calcification of the thoracic aorta. Cardiomegaly. No pneumothorax or definite pleural effusion. Bilateral perihilar airspace opacities are stable. Osseous structures are stable. Upper abdominal soft tissues are unremarkable. IMPRESSION: 1. Endotracheal tube and NG tube in appropriate radiographic position. Otherwise stable appearance of the chest with persistent bilateral airspace opacity.
[2017-08-24 03:52] LABS: TROPONIN I 0.199 ng/mL
[2017-08-24 03:54] LABS: ANISOCYTOSIS 2+; OVALOCYTES SLIGHT; PLATELET COMMENT DECREASED; POIKILOCYTOSIS SLIGHT; TOXIC GRANULATION 1+; TOXIC VACUOLATION PRESENT
[2017-08-24 03:55] LABS: PLATELET LARGE PRESENT
[2017-08-24] MEDS: PROPOFOL 1,000 MG/100 ML INFUS..BTL IV PRN ×3 (04:20→17:14)
[2017-08-24] MEDS ORDERED: CALCIUM GLUCONATE 1,000 MG in DEXTROSE 5%-WATER 50 ML IV ONE (04:28)
[2017-08-24] MEDS ORDERED: PHARMACY COMMUNICATION ORDER MC NR (04:30)
[2017-08-24] MEDS ORDERED: DEXTROSE 40% GEL 15 GM TUBE NG PRN ×2 (04:30→05:00)
[2017-08-24] MEDS ORDERED: ACETAMINOPHEN 325 MG TABLET NG PRN (04:30)
[2017-08-24] MEDS ORDERED: CALCIUM GLUCONATE 1000 MG/10 ML INJ IV ONE (04:37)
[2017-08-24] MEDS: FENTANYL CITRATE INJ/PF 100 MCG/2 ML AMPUL IV PRN ×2 (05:31→12:12)
[2017-08-24] MEDS: HEPARIN SOD (PORCINE) 5,000 UNIT/ML 1 ML SYRINGE SUBCUT SCH ×2 (05:34→13:27)
[2017-08-24 06:01] LABS: ARTERIAL BLOOD BASE EXCESS 1.7 mmol/L; ARTERIAL BLOOD H2CO3 1.42 mmol/L (1.05-1.35); ARTERIAL BLOOD HCO3 27.4 mmol/L (20-26); ARTERIAL BLOOD O2 SATURATION 97.5 % (94-98); ARTERIAL BLOOD PCO2 47.1 mmHg (35-45); ARTERIAL BLOOD PH 7.38 (7.35-7.45); ARTERIAL BLOOD PO2 101.9 mmHg (80-100); ARTERIAL BLOOD TOTAL CO2 28.8 mmol/L (21-25)
[2017-08-24 06:03] LABS: ARTERIAL BLOOD FIO2 40%
--- NOTE | 2017-08-24 06:47 | RADIOLOGY REPORT (SQ) ---
EXAM DESCRIPTION: Right upper quadrant abdominal ultrasound. CLINICAL HISTORY: arf anuric, abd distension COMPARISON: None. TECHNIQUE: Real-time sonographic images of the abdomen were obtained using a curved multihertz transducer. FINDINGS: The visualized portions of the pancreas are unremarkable. The visualized portions of the aorta and IVC are unremarkable. The liver has lobular contour contour and echogenicity. The common bile duct measures 0.3 cm. Echogenic structure in the main portal vein measuring 2.8 cm. Hepatopedal flow in the main portal vein. Cholecystectomy. The right kidney measures 10.2 cm in length. The left kidney measures 10.6 cm in length. No solid renal mass, shadowing renal calculi, or hydronephrosis. The spleen is enlarged measuring 20.3 cm in length. Small amount of ascites. Bladder is not identified. IMPRESSION: 1. 2.8 cm echogenic structure in the main portal vein concerning for thrombus. Flow is preserved in the main portal vein and is hepatopedal. 2. Findings compatible with cirrhosis as well as likely portal hypertension with nodular contour of the liver, ascites and splenomegaly.
[2017-08-24 07:01] LABS: APPEARANCE,URINE CLOUDY; BILIRUBIN,URINE NEGATIVE (NEGATIVE); COLOR,URINE RED; GLUCOSE, URINE NEGATIVE (NEGATIVE); KETONES,URINE NEGATIVE (NEGATIVE); LEUKOCYTE ESTERASE,URINE SMALL (NEGATIVE); NITRITE,URINE NEGATIVE (NEGATIVE); PROTEIN,URINE 100 mg/dL (NEGATIVE); URINE SPECIFIC GRAVITY 1.018; UROBILINOGEN,URINE NEGATIVE mg/dL (<2.0)
[2017-08-24] MEDS ORDERED: DEXTROSE 5%-WATER 250 ML with NOREPINEPHRINE BITARTRATE 4 MG IV PRN ×2 (07:24)
[2017-08-24] MEDS ORDERED: ALPRAZOLAM 0.25 MG TABLET NG PRN (08:30)
--- NOTE | 2017-08-24 08:42 | EKG REPORT ---
SEVERITY:- ABNORMAL ECG - SINUS RHYTHM RIGHT BUNDLE BRANCH BLOCK LVH BY VOLTAGE NONSPECIFIC T ABNORMALITIES, INFERIOR LEADS : Confirmed by: Noemi Hermosillo 24-Aug-2017 08:41:34
[2017-08-24] MEDS ORDERED: RINGERS SOLUTION,LACTATED 1,000 ML IV ONE (09:30)
[2017-08-24] MEDS ORDERED: PANTOPRAZOLE SODIUM 40 MG VIAL IV SCH (10:00)
--- NOTE | 2017-08-24 11:04 | RADIOLOGY REPORT (SQ) ---
EXAM DESCRIPTION: KUB/ABDOMEN (SINGLE VIEW) COMPLETED DATE/TIME: 08/24/2017 10:55 am REASON FOR STUDY: abdominal distension COMPARISON: None. NUMBER OF VIEWS: One view. TECHNIQUE: Supine radiographic image of the abdomen acquired. LIMITATIONS: None. FINDINGS: BOWEL GAS PATTERN: There are some gas-filled loops of small bowel other not significantly distended. A moderate amount of fecal material is present in the colon. CALCIFICATIONS: No suspicious calcifications. SOFT TISSUES: No gross mass or suggestion of organomegaly. HARDWARE: None in the abdomen. BONES: No acute fracture. No worrisome bone lesions. OTHER: No other significant finding. IMPRESSION: Cannot exclude mild partial bowel obstruction versus ileus. TECHNICAL DOCUMENTATION: JOB ID: [id number] [employer]- All Rights Reserved Reading location - IP/workstation name: [email or web address]
[2017-08-24 12:01] LABS: HEMATOCRIT 32.5 % (36.0-47.0); HEMOGLOBIN 10.6 g/dL (12.0-15.5); MEAN CORPUSCULAR HEMOGLOBIN 31.1 pg (27.0-33.4); MEAN CORPUSCULAR HGB CONC 32.6 g/dL (32.0-36.0); MEAN CORPUSCULAR VOLUME 95 fl (80-97); RED BLOOD COUNT 3.41 10^6/uL (3.72-5.28); RED CELL DISTRIBUTION WIDTH 18.9 % (11.5-14.0); WHITE BLOOD COUNT 3.2 10^3/uL (4.0-10.5)
[2017-08-24 12:17] LABS: ANION GAP 12 (5-19); BLOOD UREA NITROGEN 67 mg/dL (7-20); CALCIUM 8.2 mg/dL (8.4-10.2); CARBON DIOXIDE 26 mmol/L (22-30); CHLORIDE 106 mmol/L (98-107); GLUCOSE 102 mg/dL (75-110); POTASSIUM 3.1 mmol/L (3.6-5.0)
[2017-08-24 12:41] LABS: PLATELET COUNT 28 10^3/uL (150-450)
[2017-08-24] MEDS ORDERED: PIPERACILLIN SODIUM/TAZOBACTAM 2.25 GM in NORMAL SALINE 50 ML IV SCH (14:00)
[2017-08-24] MEDS ORDERED: HYDROCORTISONE SOD SUCCINATE INJ/PF 100 MG/2 ML SDV IV SCH (14:00)
[2017-08-24] MEDS ORDERED: POTASSIUM CHLORIDE 20 MEQ/50 ML RTU IV SCH (15:15)
[2017-08-24] MEDS ORDERED: MAGNESIUM SULFATE 1 GM/D5W 100 ML IV SCH (15:15)
--- NOTE | 2017-08-24 16:03 | PDOC DISCHARGE SUMMARY ---
General - Admit/Disc Date/PCP Admission Date/Primary Care Provider: 08/23/17 22:04 JORDYN STEEN, DO Discharge Date: 08/24/17 - Discharge Diagnosis (1) Bacteremia due to Staphylococcus Is this a current diagnosis for this admission?: Yes Summary: Patient is growing gram-positive cocci in clusters and 2 sets of blood cultures. She is on vancomycin. Etiology of infection not entirely clear but possibly due to pneumonia. She also has a chest port in place which be the culprit. Patient was recently hospitalized for CHF exacerbation. Could have been exposed to staff at that time. (2) Septic shock Is this a current diagnosis for this admission?: Yes Summary: Patient is sepsis related to gram-positive cocci in clusters and 2 sets of blood cultures. She is on a small dose of Levophed for hypotension. She has undergone fluid resuscitation. She is on broad-spectrum antibiotics including vancomycin. Due to severity of illness and urine sputum and final blood cultures all pending I will continue gram-negative coverage with Levaquin and cefepime. (3) ARF (acute renal failure) Is this a current diagnosis for this admission?: Yes Summary: This is an acute on chronic kidney injury. I do not know with the patient's baseline creatinine is. On her discharge several days ago she was at 1.5. Her creatinine has improved from 2.75 to 2.1 today, BUN also improving. Initially after admission she was not making urine but she has made over 300 mL of urine through the course of today. Patient has evidence of urinary tract infection and urine culture is pending. She has undergone fluid resuscitation. (4) Acute and chronic respiratory failure Is this a current diagnosis for this admission?: Yes (5) COPD (chronic obstructive pulmonary disease) Is this a current diagnosis for this admission?: Yes Summary: Not wheezing now. Respiratory failure likely related to sepsis. Continuing with bronchodilators as she uses at home. (6) Cirrhosis Is this a current diagnosis for this admission?: Yes Summary: Etiology not clear. The patient is obese and this could be related to that. Spoke with her [id number] who does not know the etiology of the cirrhosis. On ultrasound she has a portal vein thrombus. Secondary to severe thrombocytopenia I am not anticoagulating now. I do not know if this is old or acute. She also has ascites. Once patient is more stable she will need care related to these diagnoses. (7) Depression Is this a current diagnosis for this admission?: Yes Summary: We will need to speak with [id number] or other family member to get information about her depression. (8) Diabetes Is this a current diagnosis for this admission?: Yes Summary: Patient's blood glucose has been slightly labile, most recent check 102. She is on short acting insulin every 6 hours with a sliding scale. (9) Pancytopenia Is this a current diagnosis for this admission?: Yes Summary: Probably multifactorial given her sepsis potentially causing leukopenia, chronic disease potentially causing anemia and cirrhosis and sepsis causing thrombocytopenia. No active bleeding. Secondary to severe thrombocytopenia she is not being anticoagulated for portal vein thrombus and she is not receiving deep to prophylaxis. THERESA hose are in place. (10) Bradycardia Is this a current diagnosis for this admission?: Yes Summary: For several hours today the patient was bradycardic in the 40s. We stopped fentanyl that she was receiving as needed pain related to intubation. Also propofol was weaned back and her heart rate improved into the 60s. We are monitoring carefully. (11) Coronary artery disease Is this a current diagnosis for this admission?: Yes Summary: Patient had early onset CAD and has had multiple stents in place. She is currently off of her cardiac meds secondary to acute illness. She has a slightly elevated troponin at 0.199 slightly up from her first, next troponin is pending. Potentially a supply demand PA versus a non-ST elevation PA. - Additional Information Resuscitation Status: Full Code Discharge Diet: Other (Comments) - NG tube in place, tube feeds have not been started Discharge Activity: Bedrest History of Present Illness History of Present Illness: ROSALVA DOLL is a 66 year old woman with an extensive past medical history including severe pulmonary hypertension, congestive heart failure with an ejection fraction of 40%, early onset coronary artery disease, COPD, pancytopenia, hepatic cirrhosis with unknown cause (possibly related to obesity) , diabetes, chronic pain, depression and benzodiazepine dependence. Patient discharged with an past few days for COPD and CHF exacerbation. She returns to [facility] with fever and hypotension and profound weakness. In the emergency room she is found to have a chest x-ray suggestive of pneumonia versus congestive heart failure, ABG reveals acute respiratory failure. She was started on empiric antibiotics and referred to the hospitalist for admission. On hospitalist exam she is critically ill, with a systolic pressure of 76 she started on Levophed and a 2 L normal saline bolus. She is following commands and protecting her airway on BiPAP of 40%. Hospital Course Hospital Course: Please see hospital course by problem list Physical Exam Vital Signs: Temp Pulse Resp BP Pulse Ox 97.3 F 67 18 106/53 L 100 08/24/17 08:00 08/24/17 14:21 08/24/17 14:21 08/24/17 13:50 08/24/17 14:21 Intake & Output 08/23/17 08/24/17 08/25/17 06:59 06:59 06:59 Intake Total 3787 Output Total 65 310 Balance 3722 -310 Weight 70.4 kg General appearance: PRESENT: no acute distress Head exam: PRESENT: atraumatic, normocephalic Eye exam: PRESENT: conjunctiva pink Ear exam: PRESENT: normal external ear exam Mouth exam: PRESENT: moist Respiratory exam: PRESENT: clear to auscultation scott, unlabored. ABSENT: rales , rhonchi, tachypnea, wheezes Cardiovascular exam: PRESENT: RRR, systolic murmur GI/Abdominal exam: PRESENT: distended, hypoactive bowel sounds, soft. ABSENT: firm Neurological exam: PRESENT: other - Sedated with propofol Psychiatric exam: ABSENT: agitated Skin exam: PRESENT: dry, warm, other - stage 2 sacrum Results Laboratory Results: 08/24/17 11:35 08/24/17 11:35 08/23/17 08/24/17 08/24/17 23:13 01:00 02:40 WBC RBC Hgb Hct MCV MCH MCHC RDW Plt Count Seg Neutrophils % Lymphocytes % Monocytes % Eosinophils % Basophils % Absolute Neutrophils Absolute Lymphocytes Absolute Monocytes Absolute Eosinophils Absolute Basophils Carbonic Acid 2.77 H 2.92 H HCO3/H2CO3 Ratio 14:1 12:1 ABG pH 7.24 L 7.20 L* ABG pCO2 92.0 H* 97.1 H* ABG pO2 139.5 H 70.8 L ABG HCO3 38.8 H 37.1 H ABG O2 Saturation 98.2 H 89.2 L ABG Base Excess 8.1 5.1 FiO2 50% 40% Sodium Potassium Chloride Carbon Dioxide Anion Gap BUN Creatinine Est GFR ( Amer) Est GFR (Non-Af Amer) Glucose Lactic Acid 1.0 Calcium Magnesium Urine Color Urine Appearance Urine pH Ur Specific [place] Urine Protein Urine Glucose (UA) Urine Ketones Urine Blood Urine Nitrite Ur Leukocyte Esterase Urine WBC (Auto) Urine RBC (Auto) 08/24/17 08/24/17 08/24/17 03:10 03:10 05:50 WBC 11.4 H D RBC 3.97 Hgb 12.2 Hct 38.5 MCV 97 MCH 30.8 MCHC 31.8 L RDW 19.5 H Plt Count 45 L Seg Neutrophils % Not Reportable Lymphocytes % Not Reportable Monocytes % Not Reportable Eosinophils % Not Reportable Basophils % Not Reportable Absolute Neutrophils Not Reportable Absolute Lymphocytes Not Reportable Absolute Monocytes Not Reportable Absolute Eosinophils Not Reportable Absolute Basophils Not Reportable Carbonic Acid 1.42 H HCO3/H2CO3 Ratio 19:1 ABG pH 7.38 ABG pCO2 47.1 H ABG pO2 101.9 H ABG HCO3 27.4 H ABG O2 Saturation 97.5 ABG Base Excess 1.7 FiO2 40% Sodium 148.4 H Potassium 3.7 Chloride 98 Carbon Dioxide 34 H Anion Gap 16 BUN 77 H Creatinine 2.75 H Est GFR ( Amer) 21 L Est GFR (Non-Af Amer) 17 L Glucose 177 H Lactic Acid Calcium 8.3 L Magnesium Urine Color Urine Appearance Urine pH Ur Specific [place] Urine Protein Urine Glucose (UA) Urine Ketones Urine Blood Urine Nitrite Ur Leukocyte Esterase Urine WBC (Auto) Urine RBC (Auto) 08/24/17 08/24/17 08/24/17 06:32 11:35 11:35 WBC 3.2 L RBC 3.41 L Hgb 10.6 L Hct 32.5 L MCV 95 MCH 31.1 MCHC 32.6 RDW 18.9 H Plt Count 28 L* Seg Neutrophils % Lymphocytes % Monocytes % Eosinophils % Basophils % Absolute Neutrophils Absolute Lymphocytes Absolute Monocytes Absolute Eosinophils Absolute Basophils Carbonic Acid HCO3/H2CO3 Ratio ABG pH ABG pCO2 ABG pO2 ABG HCO3 ABG O2 Saturation ABG Base Excess FiO2 Sodium 144.0 Potassium 3.1 L Chloride 106 Carbon Dioxide 26 Anion Gap 12 BUN 67 H Creatinine 2.11 H Est GFR ( Amer) 28 L Est GFR (Non-Af Amer) 23 L Glucose 102 Lactic Acid Calcium 8.2 L Magnesium Urine Color RED Urine Appearance CLOUDY Urine pH 5.0 Ur Specific [place] 1.018 Urine Protein 100 H Urine Glucose (UA) NEGATIVE Urine Ketones NEGATIVE Urine Blood LARGE H Urine Nitrite NEGATIVE Ur Leukocyte Esterase SMALL H Urine WBC (Auto) 54 Urine RBC (Auto) >182 08/24/17 11:35 WBC RBC Hgb Hct MCV MCH MCHC RDW Plt Count Seg Neutrophils % Lymphocytes % Monocytes % Eosinophils % Basophils % Absolute Neutrophils Absolute Lymphocytes Absolute Monocytes Absolute Eosinophils Absolute Basophils Carbonic Acid HCO3/H2CO3 Ratio ABG pH ABG pCO2 ABG pO2 ABG HCO3 ABG O2 Saturation ABG Base Excess FiO2 Sodium Potassium Chloride Carbon Dioxide Anion Gap BUN Creatinine Est GFR ( Amer) Est GFR (Non-Af Amer) Glucose Lactic Acid Calcium Magnesium 1.4 L Urine Color Urine Appearance Urine pH Ur Specific [place] Urine Protein Urine Glucose (UA) Urine Ketones Urine Blood Urine Nitrite Ur Leukocyte Esterase Urine WBC (Auto) Urine RBC (Auto) 08/24/17 08/24/17 08/24/17 03:10 03:10 14:55 Creatine Kinase 23 L < 20 L CK-MB (CK-2) 0.35 Troponin I 0.199 Impressions: Abdomen Ultrasound 08/24/17 00:00 IMPRESSION: 1. 2.8 cm echogenic structure in the main portal vein concerning for thrombus. Flow is preserved in the main portal vein and is hepatopedal. 2. Findings compatible with cirrhosis as well as likely portal hypertension with nodular contour of the liver, ascites and splenomegaly. KUB X-Ray 08/24/17 00:00 IMPRESSION: Cannot exclude mild partial bowel obstruction versus ileus. Chest X-Ray 08/24/17 03:30 IMPRESSION: 1. Endotracheal tube and NG tube in appropriate radiographic position. Otherwise stable appearance of the chest with persistent bilateral airspace opacity. Qualifiers - * PATIENT BEING DISCHARGED WITH ANY OF THE FOLLOWING DIAGNOSIS: Heart Failure, VTE (PE or DVT) VTE patient discharged on overlapping Therapy?: No Reason(s) for not prescribing Overlap Therapy:: Medical Contraindication HF Pt being discharged on ACEI for LVEF less than 40%?: No Reason(s) for not prescribing ACEI:: Medical Contraindication HF Pt being discharged on ARBS for LVEF less than 40%?: No Reason(s) for not prescribing ARBS:: Medical Contraindication HF Pt with Afib discharged with Warfarin?: No Reason(s) for not prescribing Warfarin:: Not indicated HF Pt discharged on evidence-based Beta Mar:: No Reason(s) for not prescribing evidence-based Beta Mar:: Medical Contraindication
[2017-08-24 16:45] LABS: CREATINE KINASE MB 0.34 ng/mL (<4.55); TROPONIN I 0.082 ng/mL
[2017-08-24] MEDS ORDERED: LEVOFLOXACIN 750 MG/D5W RTU 750 MG/150 ML RTUPB IV SCH (18:00)
[2017-08-24 18:34] VITALS: BP 109/59
[2017-08-24] MEDS ORDERED: LATANOPROST 0.005% OPH SOLN 2.5 ML OU SCH (22:00)
[2017-08-24] MEDS ORDERED: BIMATOPROST 0.01% OPH SOLN 2.5 ML/BOTTLE OU SCH (22:00)
[2017-08-25] MEDS ORDERED: VANCOMYCIN HCL 1,000 MG in DEXTROSE 5%-WATER 250 ML IV SCH (18:00)
--- NOTE | 2017-08-26 12:34 | PDOC CONSULTATION ---
Consultation Consult Date: 08/24/17 Attending physician:: ROBIN MICHAELS Consult reason:: resp failure pna History of Present Illness Admission Date/PCP: 08/23/17 22:04 JORDYN STEEN DO Patient complains of: dyspnea History of Present Illness: ROSALVA DOLL is a 66 year old femaleadmitted for sob ,cough and fever s/p discharged for pna current cxr pna vs CHF patient currently on bipap Past Medical History Cardiac Medical History: Reports: Congestive Heart Failure, Coronary Artery Disease, Myocardial Infarction - 1995, Hyperlipidema, Hypertension, Heart Murmur Pulmonary Medical History: Reports: Asthma, Bronchitis, Chronic Obstructive Pulmonary Disease (COPD) Denies: Pneumonia Neurological Medical History: Denies: Seizures Endocrine Medical History: Reports: Diabetes Mellitus Type 2, Hypothyroidism GI Medical History: Reports: Cirrhosis, Gastroesophageal Reflux Disease Denies: Hepatitis, Hiatal Hernia Musculoskeltal Medical History: Reports: Arthritis Psychiatric Medical History: Reports: Depression - xanax, celaxa Hematology: Reports: Anemia Denies: Sickle Cell Disease Past Surgical History Past Surgical History: Reports: Cardiac Catheterization, Section - x3, Cholecystectomy, Coronary Stent - x12 Denies: Amputation, Mastectomy, Pacemaker Social History Lives with: Family Smoking Status: Unknown if Ever Smoked Frequency of Alcohol Use: None Hx Recreational Drug Use: No Drugs: None Hx Prescription Drug Abuse: No Do you have pets?: No Have you had any respiratory illnesses as a child?: No Have you travelled outside of [place] in the past 12 months?: No - Advance Directive Resuscitation Status: Full Code Family History Family History: CAD, COPD Parental Family History Reviewed: No Children Family History Reviewed: No Sibling(s) Family History Reviewed.: No Medication/Allergy Allergies/Adverse Reactions: oxycodone Allergy (Severe, Verified 08/17/17 15:15) ended up in hospital with kidney failure codeine Allergy (Verified 08/17/17 15:15) midazolam HCl [From Versed] Allergy (Verified 08/17/17 15:15) ON VENT X 19 DAYS hydrocodone [Hydrocodone] Adverse Reaction (Mild, Verified 08/17/17 15:15) GI upset Physical Exam Vital Signs: Temp Pulse Resp BP Pulse Ox 98.1 F 64 16 126/54 H 98 08/24/17 06:00 08/24/17 07:47 08/24/17 06:35 08/24/17 06:35 08/24/17 06:35 Intake & Output 08/23/17 08/24/17 08/25/17 06:59 06:59 06:59 Intake Total 3787 Output Total 65 Balance 3722 Weight 70.4 kg General appearance: PRESENT: no acute distress, cooperative, disheveled, obese, well-developed, well-nourished Head exam: PRESENT: atraumatic, normocephalic Eye exam: PRESENT: conjunctiva pale, EOMI. ABSENT: nystagmus, periorbital swelling, scleral icterus Mouth exam: PRESENT: dry mucosa, neck supple, tongue midline Neck exam: ABSENT: carotid bruit, JVD, lymphadenopathy, thyromegaly, tracheal deviation, tracheostomy Respiratory exam: PRESENT: decreased breath sounds, prolonged expiratory phas, rhonchi, unlabored. ABSENT: retraction, stridor Cardiovascular exam: PRESENT: RRR, +S1, +S2, tachycardia Pulses: PRESENT: normal radial pulses GI/Abdominal exam: PRESENT: normal bowel sounds, soft - [id number] Extremities exam: ABSENT: calf tenderness, clubbing, joint swelling - [id number] Musculoskeletal exam: ABSENT: ambulatory, deformity, dislocation Neurological exam: PRESENT: awake Psychiatric exam: PRESENT: flat affect Skin exam: PRESENT: dry, warm Results Laboratory Results: 08/24/17 03:10 08/24/17 03:10 08/23/17 08/24/17 08/24/17 23:13 01:00 02:40 WBC RBC Hgb Hct MCV MCH MCHC RDW Plt Count Seg Neutrophils % Lymphocytes % Monocytes % Eosinophils % Basophils % Absolute Neutrophils Absolute Lymphocytes Absolute Monocytes Absolute Eosinophils Absolute Basophils Carbonic Acid 2.77 H 2.92 H HCO3/H2CO3 Ratio 14:1 12:1 ABG pH 7.24 L 7.20 L* ABG pCO2 92.0 H* 97.1 H* ABG pO2 139.5 H 70.8 L ABG HCO3 38.8 H 37.1 H ABG O2 Saturation 98.2 H 89.2 L ABG Base Excess 8.1 5.1 FiO2 50% 40% Sodium Potassium Chloride Carbon Dioxide Anion Gap BUN Creatinine Est GFR ( Amer) Est GFR (Non-Af Amer) Glucose Lactic Acid 1.0 Calcium Urine Color Urine Appearance Urine pH Ur Specific [place] Urine Protein Urine Glucose (UA) Urine Ketones Urine Blood Urine Nitrite Ur Leukocyte Esterase Urine WBC (Auto) Urine RBC (Auto) 08/24/17 08/24/17 08/24/17 03:10 03:10 05:50 WBC 11.4 H D RBC 3.97 Hgb 12.2 Hct 38.5 MCV 97 MCH 30.8 MCHC 31.8 L RDW 19.5 H Plt Count 45 L Seg Neutrophils % Not Reportable Lymphocytes % Not Reportable Monocytes % Not Reportable Eosinophils % Not Reportable Basophils % Not Reportable Absolute Neutrophils Not Reportable Absolute Lymphocytes Not Reportable Absolute Monocytes Not Reportable Absolute Eosinophils Not Reportable Absolute Basophils Not Reportable Carbonic Acid 1.42 H HCO3/H2CO3 Ratio 19:1 ABG pH 7.38 ABG pCO2 47.1 H ABG pO2 101.9 H ABG HCO3 27.4 H ABG O2 Saturation 97.5 ABG Base Excess 1.7 FiO2 40% Sodium 148.4 H Potassium 3.7 Chloride 98 Carbon Dioxide 34 H Anion Gap 16 BUN 77 H Creatinine 2.75 H Est GFR ( Amer) 21 L Est GFR (Non-Af Amer) 17 L Glucose 177 H Lactic Acid Calcium 8.3 L Urine Color Urine Appearance Urine pH Ur Specific [place] Urine Protein Urine Glucose (UA) Urine Ketones Urine Blood Urine Nitrite Ur Leukocyte Esterase Urine WBC (Auto) Urine RBC (Auto) 08/24/17 06:32 WBC RBC Hgb Hct MCV MCH MCHC RDW Plt Count Seg Neutrophils % Lymphocytes % Monocytes % Eosinophils % Basophils % Absolute Neutrophils Absolute Lymphocytes Absolute Monocytes Absolute Eosinophils Absolute Basophils Carbonic Acid HCO3/H2CO3 Ratio ABG pH ABG pCO2 ABG pO2 ABG HCO3 ABG O2 Saturation ABG Base Excess FiO2 Sodium Potassium Chloride Carbon Dioxide Anion Gap BUN Creatinine Est GFR ( Amer) Est GFR (Non-Af Amer) Glucose Lactic Acid Calcium Urine Color RED Urine Appearance CLOUDY Urine pH 5.0 Ur Specific [place] 1.018 Urine Protein 100 H Urine Glucose (UA) NEGATIVE Urine Ketones NEGATIVE Urine Blood LARGE H Urine Nitrite NEGATIVE Ur Leukocyte Esterase SMALL H Urine WBC (Auto) 54 Urine RBC (Auto) >182 08/24/17 08/24/17 03:10 03:10 Creatine Kinase 23 L CK-MB (CK-2) 0.35 Troponin I 0.199 Impressions: Abdomen Ultrasound 08/24/17 00:00 IMPRESSION: 1. 2.8 cm echogenic structure in the main portal vein concerning for thrombus. Flow is preserved in the main portal vein and is hepatopedal. 2. Findings compatible with cirrhosis as well as likely portal hypertension with nodular contour of the liver, ascites and splenomegaly. Chest X-Ray 08/24/17 03:30 IMPRESSION: 1. Endotracheal tube and NG tube in appropriate radiographic position. Otherwise stable appearance of the chest with persistent bilateral airspace opacity. Assessment & Plan - Diagnosis (1) Acute and chronic respiratory failure Is this a current diagnosis for this admission?: Yes (3) Chronic renal insufficiency Qualifiers: Chronic kidney disease stage: unspecified stage Qualified Code(s): N18.9 - Chronic kidney disease, unspecified (4) Cirrhosis Qualifiers: Is this a current diagnosis for this admission?: Yes (5) Coronary artery disease Is this a current diagnosis for this admission?: Yes (6) GERD (gastroesophageal reflux disease) Qualifiers: Esophagitis presence: without esophagitis Qualified Code(s): K21.9 - Gastro -esophageal reflux disease without esophagitis Is this a current diagnosis for this admission?: Yes Plan: stable PPI (7) HTN (hypertension) Qualifiers: Hypertension type: essential hypertension Qualified Code(s): I10 - Essential (primary) hypertension Is this a current diagnosis for this admission?: Yes Plan: stable (8) Pulmonary hypertension Is this a current diagnosis for this admission?: Yes Plan: stable (9) Septic shock Is this a current diagnosis for this admission?: Yes Plan: on norepinephrine - Time Total Critical Time (Minutes): 50
== END 2017-08-24 17:30 | disposition short-term general hospital (02) | DRG 871 ==
LOC: ER 15:47 → EH 22:04 → ICU 23:30
PROVIDERS: ADMIT Internal Medicine; ATTEND Internal Medicine
PROC: 5A09357 Assistance with Respiratory Ventilation, Less than 24 Consecutive Hours, Continuous Positive Airway Pressure (ICD-10-PCS; 2017-08-23)
PROC: 5A1935Z Respiratory Ventilation, Less than 24 Consecutive Hours (ICD-10-PCS; principal; 2017-08-24)
PROC: 3E0F73Z Introduction of Anti-inflammatory into Respiratory Tract, Via Natural or Artificial Opening (ICD-10-PCS; 2017-08-24)
PROC: 0BH17EZ Insertion of Endotracheal Airway into Trachea, Via Natural or Artificial Opening (ICD-10-PCS; 2017-08-24)
DX: A41.01 Sepsis due to Methicillin susceptible Staphylococcus aureus (principal); R65.21 Severe sepsis with septic shock; J96.21 Acute and chronic respiratory failure with hypoxia; J96.22 Acute and chronic respiratory failure with hypercapnia; N17.9 Acute kidney failure, unspecified; D61.818 Other pancytopenia; F13.20 Sedative, hypnotic or anxiolytic dependence, uncomplicated; I13.0 Hypertensive heart and chronic kidney disease with heart failure and stage 1 through stage 4 chronic kidney disease, or unspecified chronic kidney disease; J44.1 Chronic obstructive pulmonary disease with (acute) exacerbation; I50.9 Heart failure, unspecified; I27.20 Pulmonary hypertension, unspecified; K74.60 Unspecified cirrhosis of liver; F32.9 Major depressive disorder, single episode, unspecified; R00.1 Bradycardia, unspecified; E66.9 Obesity, unspecified; Z68.30 Body mass index [BMI] 30.0-30.9, adult; I25.10 Atherosclerotic heart disease of native coronary artery without angina pectoris; G89.29 Other chronic pain; I25.2 Old myocardial infarction; E78.00 Pure hypercholesterolemia, unspecified; K21.9 Gastro-esophageal reflux disease without esophagitis; E11.22 Type 2 diabetes mellitus with diabetic chronic kidney disease; M19.90 Unspecified osteoarthritis, unspecified site; M54.9 Dorsalgia, unspecified; K72.90 Hepatic failure, unspecified without coma; Z99.81 Dependence on supplemental oxygen; Z79.899 Other long term (current) drug therapy; Z95.5 Presence of coronary angioplasty implant and graft; Z90.49 Acquired absence of other specified parts of digestive tract; Z88.6 Allergy status to analgesic agent; Z88.4 Allergy status to anesthetic agent; Z83.6 Family history of other diseases of the respiratory system; Z82.49 Family history of ischemic heart disease and other diseases of the circulatory system
CPT/HCPCS: 31500; 36415; 36600; 51702; 71045; 74018; 76700; 80048; 80053; 80307; 81001; 82140; 82533; 82550; 82553; 82803; 82962; 83605; 83735; 83880; 84484; 85025; 85027; 87040; 87077; 87086; 87088; 87186; 93005; 93010; 94002; 94640; 94660; 96365; 96367; 96375; 99291; J0330; J0610; J0692; J1720; J1956; J2270; J2543; J2704; J3010; J3370; J3475; J3480; J3490; J7030; J7120; J7620; S0164